=== PATIENT | male | born 1965 | race Caucasian/White ===

== ENCOUNTER 2016-09-29 18:27 | Observation (INO) | payer OTHER ==
--- NOTE | 2016-09-29 19:43 | EDPHY ---
H & P Time Seen by Provider: 09/29/16 19:33 HPI/ROS: CHIEF COMPLAINT: Infected toe HISTORY OF PRESENT ILLNESS: Patient has diabetes and initially had a wound on the toe month ago. It was apparently incised and debrided 2 weeks ago at clinic and he was sent here today because of a concern for osteomyelitis. He does not have pain in the toe but it has got a central eschar with surrounding redness. No lymphangitis and no fevers or chills. Minimal pain. A little bit of drainage. Notes from the clinic reflect that he failed to get better on oral Augmentin and then on oral Bactrim as an outpatient. He has been debrided twice is an outpatient. REVIEW OF SYSTEMS: Eye: no change in vision ENT: no sore throat Cardiac: no chest pain or syncope Pulmonary: no cough or SOB Abdomen: no vomiting, diarrhea, abdominal pain Musculoskeletal: no back pain Skin: HPI Neuro: no headache Constitutional: no fever : no urinary symptoms A comprehensive 10 point review of systems is otherwise negative aside from elements mentioned in the history of present illness. PAST MEDICAL HISTORY: Diabetes and hypertension Social history: Came here from [facility], nonsmoker 149/84 bp General Appearance: Alert and conversant, cooperative. Eyes: No scleral icterus. ENT, Mouth: Normal mucous membranes. Respiratory: Normal respiratory effort, breath sounds equal, lungs are clear to auscultation. Cardiovascular: Regular rate and rhythm. Gastrointestinal: Abdomen is soft and non tender. Neurological: Alert and oriented x3. Normally conversant. Face symmetric, normal movement and sensation in all extremities. Skin: Patient has erythema on the medial portion of the right great toe extends to the foot but not into the foot. There is a central 1 x 1/2 cm eschar. No crepitus. Musculoskeletal: No peripheral edema and no joint swelling. Psychiatric: Not agitated. Emergency Department course/MDM: Concern for diabetic foot infection. Consultation with general surgeon. Admit for IV antibiotics and MRI only if surgical evaluation feels there is a question about osteomyelitis. 2050: Erasto to take patient to OR w/o further imaging, hospitalist to consult. Zosyn 3.375 g IV. Smoking Status: Never smoked Constitutional: Initial Vital Signs Temperature (C) 36.7 C 09/29/16 18:34 Heart Rate 75 09/29/16 18:34 Respiratory Rate 16 09/29/16 18:34 O2 Sat (%) 95 09/29/16 18:34 O2 Delivery Mode Room Air Allergies/Adverse Reactions: No Known Allergies Allergy (Verified 05/08/13 18:46) Home Medications: Medication Instructions Recorded Aspirin EC [Aspirin EC 81 mg (*)] 81 mg PO DAILY 09/29/16 glipiZIDE [Glucotrol] 10 mg PO DAILY 09/29/16 Amox Tr/Potassium Clavulanate 2 each PO BID 09/30/16 [Augmentin 1000MG ER Tablet (*)] Hydrocodone/APAP 5/325 [[place] 1 - 2 tab PO Q4HRS PRN #10 tab 09/30/16 5/325 (*)] Lisinopril [Zestril 5 mg (*)] 5 mg PO DAILY 09/30/16 Metformin HCl [Metformin 1000 mg] 1,000 mg PO BID 09/30/16 Naproxen [Naprosyn] 500 mg PO BID 09/30/16 Medical Decision Making - Diagnostics Imaging: Left toe x-ray viewed independently by myself does not show osteomyelitis or gas in the soft tissues. Differential Diagnosis: Differential considered including but not limited to cellulitis, fasciitis, abscess, osteomyelitis. Consult/Admit Bed Type: [facility], [facility] 2050 - Data Points Laboratory Results: Laboratory Results 09/29/16 19:50 09/29/16 19:50 Medications Given: Discontinued Medications Piperacillin/Tazobactam/Dextrose (Zosyn 3.375 Gm (Premix)) 50 mls @ 100 mls/hr IV EDNOW ONE PRN Reason: Protocol Stop: 09/29/16 21:17 Last Admin: 09/29/16 21:13 Dose: 50 mls Vancomycin/Sodium Chloride (Vancomycin 1 Gm (Premix)) 250 mls @ 250 mls/hr IV Q24H MAXIMILIANO PRN Reason: Protocol Stop: 10/29/16 21:29 Last Admin: 09/30/16 00:15 Dose: Not Given Departure - Departure Disposition: To OP Cath/Surgery Clinical Impression: Diabetic foot infection Condition: Good
[2016-09-29 20:04] LABS: % IMMATURE GRANULYOCYTES 0.2 % (0.0-1.1); ABSOLUTE IMMATURE GRANULOCYTES 0.02 10^3/uL (0.00-0.10); ADD DIFF? NO; ADD MORPH? NO; ADD SCAN? NO; ATYPICAL LYMPHOCYTE FLAG 10 (0-99); FRAGMENT RBC FLAG 0 (0-99); HEMATOCRIT 43.5 % (40.0-51.0); HEMOGLOBIN 14.9 g/dL (13.7-17.5); LEFT SHIFT FLG 0 (0-99); LIPEMIA HEMOLYSIS FLAG 90 (0-99); MEAN CELL HEMOGLOBIN 29.4 pg (27.9-34.1); MEAN CELL HEMOGLOBIN CONCENTR. 34.3 g/dL (32.4-36.7); MEAN CELL VOLUME 85.8 fL (81.5-99.8); MEAN PLATELET VOLUME 9.2 fL (8.7-11.7); PLATELET CLUMPS FLAG 0 (0-99); PLATELET COUNT 349 10^3/uL (150-400); RED BLOOD CELL COUNT 5.07 10^6/uL (4.40-6.38); RED CELL DISTRIBUTION WIDTH 12.4 % (11.5-15.2)
[2016-09-29 20:20] LABS: ANION GAP 11 mEq/L (8-16); C-REACTIVE PROTEIN 12.9 mg/L (<10.0); CALCIUM 8.7 mg/dL (8.5-10.4); CARBON DIOXIDE 22 mEq/l (22-31); CHLORIDE 103 mEq/L (97-110); CREATININE 1.6 mg/dL (0.7-1.3); GLOMERULAR FILTRATION RATE 46; GLUCOSE 122 mg/dL (70-100); POTASSIUM 4.8 mEq/L (3.5-5.2); SODIUM 136 mEq/L (134-144)
[2016-09-29 20:27] LABS: SEDIMENTATION RATE 57 MM/HR (0-20)
[2016-09-29] MEDS ORDERED: PIPERACILLIN/TAZO 3.375 GM/DEX 50 ML IV ONE (20:48)
--- NOTE | 2016-09-29 21:17 | PDGENHP ---
History and Physical - Chief Complaint Acute worsening of toe wound - History of Present Illness PCP: [facility] Consulting provider: Dr. Halie Maurer Reason for consultation: Medical comanagement HPI: 50-year-old male presents with acute wound located on his left great toe, medial surface, associated with surrounding erythema and eschar formation, characterized as worsening with onset of symptoms approximately 2 weeks ago and duration persistent thereafter. Patient has attempted to treat the area with topical [id number] antibiotics without success. He reports a mild amount of associated pain and drainage. He denies ever experiencing similar wounds. He denies trauma to the foot and reports that the area began initially as a scratch. Denies any paresthesias. His only other complaint is bilateral knee pain which he takes ibuprofen 2 alleviated on a regular basis. His knee pain has resulted in a reduction in his physical activity but he denies any overt chest pain or shortness of breath with normal ambulation or ambulation of stairs. He reports that his oral intake of solids and liquids is good, he has had no recent reduction in his urine output. History Information - Allergies/Home Medication List Allergies/Adverse Reactions: No Known Allergies Allergy (Verified 05/08/13 18:46) Home Medications: Aspirin 09/29/16 [Last Taken Unknown] Glipizide 09/29/16 [Last Taken Unknown] I have personally reviewed and updated: family history, medical history, social history, surgical history - Past Medical History diabetes type 2 (On metformin), hypertension Additional medical history: Osteoarthritis bilateral knees - Surgical History Additional surgical history: Debridement of the affected area approximately 2 weeks - Family History Additional family history: No family history of venous thromboembolism or cardiovascular disease - Social History Smoking Status: Never smoked Alcohol Use: Occasionally (Last drink several weeks ago) Drug Use: None Additional social history: No recent reduction in exercise tolerance Review of Systems ROS: 10pt was reviewed & negative except for what was stated in HPI & below Muscolosketal: Reports: other (Pain and wound on left great toe) Skin: Reports: other (Redness and mild tenderness around the affected area) Physical Exam Temp Pulse Resp BP Pulse Ox 36.7 C 75 16 149/84 H 95 09/29/16 19:53 09/29/16 19:53 09/29/16 19:53 09/29/16 19:53 09/29/16 19:53 Constitutional: no apparent distress, appears nourished, not in pain Eyes: PERRL, anicteric sclera, EOMI Ears, Nose, Mouth, Throat: moist mucous membranes, hearing normal, ears appear normal, no oral mucosal ulcers Cardiovascular: regular rate and rhythym, no murmur, rub, or gallop, edema ( Trace bilateral lower extremity edema) Respiratory: no respiratory distress, no rales or rhonchi, clear to auscultation Gastrointestinal: normoactive bowel sounds, soft, non-tender abdomen, no palpable masses Skin: other (Nonblanching redness around central eschar on left medial great toe , mild blanchable erythema extending circumferentially from the area) Musculoskeletal: other (Full range of motion left ankle and left great toe without any effusions) Neurologic: AAOx3, sensation intact bilaterally, No weakness (Motor strength 5/ 5 bilaterally lower extremity) Psychiatric: interacting appropriately, not anxious, not encephalopathic, thought process linear Lab Data & Imaging Review 09/29/16 19:50 09/29/16 19:50 WBC 9.23 10^3/uL (3.80-9.50) 09/29/16 19:50 RBC 5.07 10^6/uL (4.40-6.38) 09/29/16 19:50 Hgb 14.9 g/dL (13.7-17.5) 09/29/16 19:50 Hct 43.5 % (40.0-51.0) 09/29/16 19:50 MCV 85.8 fL (81.5-99.8) 09/29/16 19:50 MCH 29.4 pg (27.9-34.1) 09/29/16 19:50 MCHC 34.3 g/dL (32.4-36.7) 09/29/16 19:50 RDW 12.4 % (11.5-15.2) 09/29/16 19:50 Plt Count 349 10^3/uL (150-400) 09/29/16 19:50 MPV 9.2 fL (8.7-11.7) 09/29/16 19:50 Neut % (Auto) 80.2 % (39.3-74.2) H 09/29/16 19:50 Lymph % (Auto) 13.3 % (15.0-45.0) L 09/29/16 19:50 Boyle % (Auto) 5.7 % (4.5-13.0) 09/29/16 19:50 Eos % (Auto) 0.2 % (0.6-7.6) L 09/29/16 19:50 Baso % (Auto) 0.4 % (0.3-1.7) 09/29/16 19:50 Nucleat RBC Rel Count 0.0 % (0.0-0.2) 09/29/16 19:50 Absolute Neuts (auto) 7.39 10^3/uL (1.70-6.50) H 09/29/16 19:50 Absolute Lymphs (auto) 1.23 10^3/uL (1.00-3.00) 09/29/16 19:50 Absolute Monos (auto) 0.53 10^3/uL (0.30-0.80) 09/29/16 19:50 Absolute Eos (auto) 0.02 10^3/uL (0.03-0.40) L 09/29/16 19:50 Absolute Basos (auto) 0.04 10^3/uL (0.02-0.10) 09/29/16 19:50 Absolute Nucleated RBC 0.00 10^3/uL (0-0.01) 09/29/16 19:50 Immature Gran % 0.2 % (0.0-1.1) 09/29/16 19:50 Immature Gran # 0.02 10^3/uL (0.00-0.10) 09/29/16 19:50 ESR 57 MM/HR (0-20) H 09/29/16 19:50 VBG Lactic Acid 2.0 mmol/L (0.7-2.1) 09/29/16 19:50 Sodium 136 mEq/L (134-144) 09/29/16 19:50 Potassium 4.8 mEq/L (3.5-5.2) 09/29/16 19:50 Chloride 103 mEq/L (97-110) 09/29/16 19:50 Carbon Dioxide 22 mEq/l (22-31) 09/29/16 19:50 Anion Gap 11 mEq/L (8-16) 09/29/16 19:50 BUN 25 mg/dL (7-23) H 09/29/16 19:50 Creatinine 1.6 mg/dL (0.7-1.3) H 09/29/16 19:50 Estimated GFR 46 09/29/16 19:50 Glucose 122 mg/dL (70-100) H 09/29/16 19:50 Calcium 8.7 mg/dL (8.5-10.4) 09/29/16 19:50 C-Reactive Protein 12.9 mg/L (<10.0) H 09/29/16 19:50 Visualized and Interpreted imaging results: Yes Interpretation: Evidence of early osteomyelitis in the distal phalanx of the left 5th digit Assessment & Plan Assessment: 50-year-old male presenting with wound and ulceration in the setting of diabetes mellitus type 2, suspected chronic kidney disease stage 3 Plan: 1. Foot wound in ulceration. Acute, new problem this provider, further workup indicated. x-ray demonstrating most likely osteomyelitis underneath that eschar on the medial 5th digit -discussed with Dr. Kevin Foster, he has consulted me specifically for medical co- management -ESR 57, CRP 12.9 -will most likely require surgical debridement versus amputation for osteomyelitis by Dr. Maurer -RCRI score of 0, conferring 0.5% perioperative cardiovascular risk, resulting in low cardiovascular risk for low risk orthopedic surgery -his metabolic equivalents are good albeit limited by his chronic osteoarthritic knee pain, with no recent reduction in exercise tolerance -would recommend an EKG to provide a baseline cardiac rhythm in the event that the patient has any hero- or postoperative chest pain which would require EKG in comparison to prior -no further cardiac risk stratification is indicated prior to undergoing surgery -he is not currently taking any anti-platelet medications or anticoagulants -he has taking all of his home medications this morning and there are no additional ones which should be given preoperatively -he has been NPO for approximately 6 hours -would recommend empiric IV vancomycin and Zosyn with culture of the removed material and wound bed 2. Hypertension. Chronic, continue home medication in a.m. once reconciled 3. Diabetes mellitus type 2. No significant hyperglycemia, his fasting blood glucose levels around 120 -can reinitiate home dosage of metformin in a.m. assessment the patient is tolerating a regular diabetic diet -no evidence of neuropathy on exam 4. Suspected chronic kidney disease stage 3. Serum creatinine level is 1.6 with a BUN of 25 and no significant electrolyte abnormalities -review of outside records from 05/08/2013 demonstrates serum creatinine level of 0.7, suggesting that patient's renal dysfunction has evolved from that time in the setting of hypertension and diabetes -the patient does not endorse any recent reduction in oral tolerance of solids or liquids and per history does not appear to be having oliguria -would recommend hydrating the patient for surgery and rechecking his serum creatinine level in a.m. -monitor [facility] service will follow up on this patient's care Dr. Maurer in the a.m., sooner if required.
--- NOTE | 2016-09-29 21:27 | GHP ---
DATE OF ADMISSION: 09/29/2016 CHIEF COMPLAINT: Diabetic foot ulcer. HISTORY OF PRESENT ILLNESS: The patient is a 50-year-old, man with a past medical history significant for diabetes who 1st noticed a wound to his left great toe. He presented to [facility] and has been debrided twice and honey has been applied. He has had Augmentin and Bactrim. He has had more fatigue. He denies fevers or chills. He has minimal pain. Due to the wound not healing, he was advised by his PCP to present to the ER. PAST MEDICAL HISTORY: Diabetes. PAST SURGICAL HISTORY: None. FAMILY HISTORY: Significant for alcoholism in a brother. Mother with hypertension and diabetes. SOCIAL HISTORY: He is not currently working but is eager to return to work. He does not use tobacco products. REVIEW OF SYSTEMS: A 10-point review of systems negative except per HPI. PHYSICAL EXAM: VITAL SIGNS: 36.7, 75, 149/84, 16, 95% room air. GENERAL: Pleasant, well-nourished, well-groomed man sitting up on gurney. HEENT: Normocephalic. No gross hearing deficits. Mucous membranes moist. Pupils equal and round. No scleral icterus. LUNGS: Clear to auscultation bilaterally. No increased work of breathing. CARDIAC: Regular rate. No peripheral edema. ABDOMEN: Deferred. MUSCULOSKELETAL: Moves all extremities well. SKIN: He has a 2 x 1 cm ulcer on his great toe. I am able to palpate bone. LABORATORY DATA: Results reviewed. I personally reviewed his x-ray, and there is a lucency along the medial aspect of the great toe worrisome for osteomyelitis. IMPRESSION AND PLAN: The patient is a 50-year-old man with osteomyelitis of his great toe evidenced by palpating bone, as well as the x-ray. I will take him to the operating room for amputation. Risks and benefits, including, but not limited to infection, bleeding, need for additional surgeries, and changes in his gait were discussed. He received antibiotics in the ER. /[id number]/MODL MTDD
[2016-09-29] MEDS ORDERED: BUPIVACAINE 0.5% 30 ML SDV ONE (21:29)
[2016-09-29] MEDS ORDERED: VANCOMYCIN HCL/NORMAL SALINE 250 ML IV SCH ×2 (21:30→23:30)
[2016-09-29] MEDS ORDERED: PROPOFOL/EMULSION 500 MG/50 ML BOTTLE IV ONE (21:32)
[2016-09-29] MEDS ORDERED: fentaNYL 100 MCG/2 ML INJ ONE (21:33)
[2016-09-29] MEDS ORDERED: REMIFENTANIL HCL 1 MG VIAL ONE (21:34)
[2016-09-29] MEDS ORDERED: MIDAZOLAM 2 MG/2 ML VIAL ONE (21:34)
[2016-09-29] MEDS ORDERED: LIDOCAINE 2% 100 MG/5 ML SYR IVP ONE (21:37)
[2016-09-29] MEDS ORDERED: ROCURONIUM 50 MG/5 ML VIAL ONE (21:37)
[2016-09-29] MEDS ORDERED: epHEDrine SULFATE 10 MG/ML SYR ONE (21:59)
[2016-09-29] MEDS ORDERED: NEOSTIGMINE METHYLSULFATE 5 MG/5 ML SYR ONE (22:04)
[2016-09-29] MEDS ORDERED: ACETAMINOPHEN 325 MG TAB PO PRN (22:27)
[2016-09-29] MEDS ORDERED: IBUPROFEN 600 MG TAB PO PRN (22:27)
[2016-09-29] MEDS ORDERED: HYDROCODONE/APAP 5/325 TAB PO PRN (22:27)
[2016-09-29] MEDS ORDERED: ONDANSETRON 4 MG/2 ML VIAL IVP PRN (22:28)
--- NOTE | 2016-09-29 23:53 | GOP ---
DATE OF OPERATION: 09/29/2016 SURGEON: Halie Maurer MD ANESTHESIA: Jesus Mccray MD/ PREOPERATIVE DIAGNOSIS: Osteomyelitis, left great toe. POSTOPERATIVE DIAGNOSIS: Osteomyelitis, left great toe. PROCEDURE PERFORMED: Amputation left great toe FINDINGS: Bone and soft tissue infection. SPECIMENS: Micro and pathology. ESTIMATED BLOOD LOSS: 5 cc. INDICATIONS: The patient is a 50-year-old with osteomyelitis. DESCRIPTION OF PROCEDURE: The patient was brought into the operating room, placed supine on the table, and general anesthesia was administered. His left foot was prepped with Betadine and draped in the usual sterile fashion. I infiltrated the area with 10 cc of 0.5% Marcaine. I made an incision around the ulcer, and I could easily probe to bone. I amputated the distal phalanx and submitted this to Pathology. I then used a rongeur and obtained a sample of the more proximal phalanx. I used a johanna rasp to soften the edges. I closed the deep layer with 3-0 Vicryl. I closed the skin with 2-0 nylon. Sterile dressing was applied. He was awakened in the operating room, extubated , and transferred to PACU in stable condition. /[id number]/MODL MTDD
[2016-09-30] MEDS ORDERED: hydrALAZINE 20 MG/ML VIAL IVP PRN (01:13)
[2016-09-30] MEDS: PIPERACILLIN/TAZO 3.375 GM/DEX 50 ML IV SCH ×3 (01:41→11:55)
[2016-09-30 05:31] LABS: % IMMATURE GRANULYOCYTES 0.3 % (0.0-1.1); ABSOLUTE IMMATURE GRANULOCYTES 0.02 10^3/uL (0.00-0.10); ADD DIFF? NO; ADD MORPH? NO; ADD SCAN? NO; ATYPICAL LYMPHOCYTE FLAG 0 (0-99); FRAGMENT RBC FLAG 0 (0-99); HEMATOCRIT 43.8 % (40.0-51.0); HEMOGLOBIN 13.7 g/dL (13.7-17.5); LEFT SHIFT FLG 0 (0-99); LIPEMIA HEMOLYSIS FLAG 80 (0-99); MEAN CELL HEMOGLOBIN 29.1 pg (27.9-34.1); MEAN CELL HEMOGLOBIN CONCENTR. 31.3 g/dL (32.4-36.7); MEAN PLATELET VOLUME 9.4 fL (8.7-11.7); PLATELET CLUMPS FLAG 90 (0-99); PLATELET COUNT 251 10^3/uL (150-400); RED BLOOD CELL COUNT 4.71 10^6/uL (4.40-6.38); RED CELL DISTRIBUTION WIDTH 12.3 % (11.5-15.2)
[2016-09-30 05:48] LABS: ANION GAP 6 mEq/L (8-16); CALCIUM 8.3 mg/dL (8.5-10.4); CARBON DIOXIDE 19 mEq/l (22-31); CHLORIDE 107 mEq/L (97-110); CREATININE 1.3 mg/dL (0.7-1.3); GLOMERULAR FILTRATION RATE 58; GLUCOSE 270 mg/dL (70-100); POTASSIUM 6.1 mEq/L (3.5-5.2); SODIUM 132 mEq/L (134-144)
[2016-09-30 08:25] LABS: POTASSIUM 5.1 mEq/L (3.5-5.2)
[2016-09-30] MEDS ORDERED: glipiZIDE 10 MG TAB PO SCH (09:00)
[2016-09-30] MEDS ORDERED: ASPIRIN 81 MG CHEWABLE TAB PO SCH (09:00)
--- NOTE | 2016-09-30 10:30 | HOSPPROG ---
Hospitalist Progress Note Assessment/Plan: Patient is a 50-year-old male presenting with wound and ulceration. He has diabetes mellitus type 2, suspected chronic kidney disease stage 3. Today is my first encounter with the patient/chart reviewed. *Diabetic foot ulcer/ osteomyelitis of left great toe * has a sed rate of 57 and a CRP of 12.9 * status post amputation of left great toe with Dr. Maurer * on vancomycin and Zosyn * physical therapy and occupational therapy to work with patient and gait stabilization * hyperkalemia * likely an air recheck a potassium was 5.1 * chronic kidneys disease stage III * will avoid any nephrotoxins medications * hypertension * blood pressure is 152/87 * diabetes mellitus type 2 * hyperglycemic likely secondary from surgery/stress * will add sliding scale for now *dispo: per surgical team/ will cont to follow along Subjective: Benoit said his pain is well managed. Objective: Vital Signs Temp Pulse Resp BP Pulse Ox 36.7 C 82 18 152/87 H 96 09/30/16 07:17 09/30/16 07:17 09/30/16 07:17 09/30/16 07:17 09/30/16 07:17 Laboratory Results 09/30/16 05:11 09/30/16 07:52 09/29/16 09/30/16 10/01/16 05:59 05:59 05:59 Intake Total 1263 Output Total 885 Balance 378 - Physical Exam Constitutional: no apparent distress, appears nourished, not in pain Eyes: PERRL Ears, Nose, Mouth, Throat: hearing normal Cardiovascular: regular rate and rhythym, tachycardia Respiratory: no respiratory distress Gastrointestinal: normoactive bowel sounds Skin: warm, other (left foot w dressing in place.) Neurologic: AAOx3 Psychiatric: interacting appropriately ICD10 Worksheet Patient Problems: Problems Problem Status Onset Diabetic foot infection Acute
[2016-09-30] MEDS ORDERED: D50W 25 GM/50 ML SYR IVP PRN (10:35)
--- NOTE | 2016-09-30 10:42 | SOAPPROG ---
SOAP Progress Note Assessment/Plan: Assessment: 50 yo M POD#1 s/p L great toe amp for osteomyelitis Pain controlled K elevated this am. Recheck Appreciate hospitalist management of comorbidities Dressing intact Dispo: d/c ok from surg perspective. Seen with Dr. mike. Follow-up early next week for dressing change S: pain controlled. No complaints this am O: laying in bed, comfortable, NAD No increased WOB LLE dressing intact, in post-op shoe. No surrounding erythema 09/30/16 11:04 09/30/16 11:17 Objective: Vital Signs Temp Pulse Resp BP Pulse Ox 36.7 C 82 18 152/87 H 96 09/30/16 07:17 09/30/16 07:17 09/30/16 07:17 09/30/16 07:17 09/30/16 07:17 Laboratory Results 09/30/16 05:11 09/30/16 07:52 09/29/16 09/30/16 10/01/16 05:59 05:59 05:59 Intake Total 1263 Output Total 885 Balance 378 ICD10 Worksheet Patient Problems: Problems Problem Status Onset Diabetic foot infection Acute
[2016-09-30 11:21] VITALS: BP 157/86; PULSE 88; RESP 16; TEMP 98.4; O2SAT 93
--- NOTE | 2016-09-30 11:21 | PDIAF ---
- Diagnosis Diagnosis: L great toe osteomyelitis Code Status: Full Code - Medication Management Discharge Medications: Medications to Continue on Transfer Aspirin EC [Aspirin EC 81 mg (*)] 81 mg PO DAILY 09/29/16 [Last Taken 09/29/16] glipiZIDE [Glucotrol] 10 mg PO DAILY 09/29/16 [Last Taken 09/29/16] Amox Tr/Potassium Clavulanate [Augmentin 1000MG ER Tablet (*)] 2 each PO BID [Last Taken 09/29/16 AM DOSE] Hydrocodone/APAP 5/325 [[place] 5/325 (*)] 1 - 2 tab PO Q4HRS PRN #10 tab [Last Taken Unknown] Lisinopril [Zestril 5 mg (*)] 5 mg PO DAILY 09/30/16 [Last Taken 09/29/16] Metformin HCl [Metformin 1000 mg] 1,000 mg PO BID 09/30/16 [Last Taken 09/29/16] Naproxen [Naprosyn] 500 mg PO BID 09/30/16 [Last Taken 09/29/16] Discharge Medications: Refer to the Discharge Home Medication list for PRN reason. - Orders Services needed: Physical Therapy, Occupational Therapy Diet Recommendation: no restrictions on diet Diet Texture: Regular Texture Diet Wound Care Instructions: keep dressing in place. Does not need to be changed until tuesday 10/03 at our office - Follow Up Care Current Providers and Referrals: Virginia Garcia [Primary Care Provider] - As per Instructions Halie Maurer MD [Medical Doctor] -
[2016-09-30] MEDS ORDERED: INSULIN LISPRO 100 UNIT/ML SC SCH (12:00)
[2016-09-30] MEDS ORDERED: NAPROXEN SODIUM 220 MG TAB PO SCH (21:00)
[2016-09-30] MEDS ORDERED: NON-FORMULARY NEW DRUG (Metformin Hcl [Metformin 1000 Mg] 1,000 MG) PO SCH (21:00)
[2016-09-30] MEDS ORDERED: metFORMIN HCL 500 MG TAB PO SCH (21:00)
[2016-09-30] MEDS ORDERED: NAPROXEN 500 MG PO SCH (21:00)
[2016-10-01] MEDS ORDERED: LISINOPRIL 5 MG TAB PO SCH (09:00)
== END 2016-09-30 16:22 | disposition home or self-care (01) ==
LOC: EDBD 18:27 → INTOOBSV 20:48 → F3E 23:09
PROVIDERS: ADMIT Surgery; ATTEND Surgery
PROC: 0Y6Q0Z3 Detachment at Left 1st Toe, Low, Open Approach (ICD-10-PCS; principal; 2016-09-29 21:30)
DX: E11.69 Type 2 diabetes mellitus with other specified complication (principal); M86.172 Other acute osteomyelitis, left ankle and foot; E11.621 Type 2 diabetes mellitus with foot ulcer; L97.529 Non-pressure chronic ulcer of other part of left foot with unspecified severity; I12.9 Hypertensive chronic kidney disease with stage 1 through stage 4 chronic kidney disease, or unspecified chronic kidney disease; N18.3 Chronic kidney disease, stage 3 (moderate); E87.5 Hyperkalemia
CPT/HCPCS: 96374; 97161-GP; 97165-GO; G0378; J0360; J1815; J2001; J2250; J2543; J2704; J2710; J3010; J3370

== ENCOUNTER 2016-11-09 07:00 | Inpatient (IN) | payer MEDICAID, OTHER ==
[2016-11-09] MEDS ORDERED: PIPERACILLIN/TAZO 4.5 GM/DEX 100 ML IV ONE (07:45)
[2016-11-09] MEDS ORDERED: VANCOMYCIN HCL/NORMAL SALINE 250 ML IV ONE (07:46)
--- NOTE | 2016-11-09 07:49 | EDPHY ---
H & P Stated Complaint: thinks he may have an infection in toes of L foot Time Seen by Provider: 11/09/16 07:38 HPI/ROS: CHIEF COMPLAINT: Foot infection HISTORY OF PRESENT ILLNESS: Patient is a 50-year-old male with poorly controlled diabetes and chronic kidney disease comes to the emergency department complaining of infected foot. He is followed by Dr. Halie Maurer in the wound clinic. He had amputation his left great toe in September of this year. He had osteomyelitis and was treated with vancomycin and Zosyn. He was following up with Dr. Dove office yesterday when she told him to come back to the emergency department because the infection was returning. He has not been febrile. He denies pain. REVIEW OF SYSTEMS: Constitutional: denies: chills, fever, recent illness, recent injury EENTM: denies: blurred vision, double vision, nose congestion Respiratory: denies: cough, shortness of breath Cardiac: denies: chest pain, irregular heart rate, lightheadedness, palpitations Gastrointestinal/Abdominal: denies: abdominal pain, diarrhea, nausea, vomiting, blood streaked stools Genitourinary: denies: dysuria, frequency, hematuria, pain Musculoskeletal: See HPI Skin: See HPI Neurological: denies: headache, numbness, paresthesia, tingling, dizziness, weakness Hematologic/Lymphatic: denies: blood clots, easy bleeding, easy bruising Immunologic/allergic: denies: HIV/AIDS, transplant EXAM: GENERAL: Well-appearing, well-nourished and in no acute distress. HEAD: Atraumatic, normocephalic. EYES: Pupils equal round and reactive to light, extraocular movements intact, sclera anicteric, conjunctiva are normal. ENT: TMs normal, nares patent, oropharynx clear without exudates. Moist mucous membranes. NECK: Normal range of motion, supple without lymphadenopathy or JVD. LUNGS: Breath sounds clear to auscultation bilaterally and equal. No wheezes rales or rhonchi. HEART: Regular rate and rhythm without murmurs, rubs or gallops. ABDOMEN: Soft, nontender, normoactive bowel sounds. No guarding, no rebound. No masses appreciated. BACK: No CVA tenderness, no spinal tenderness, step-offs or deformities EXTREMITIES: See skin exam, Normal range of motion, NEUROLOGICAL: Cranial nerves II through XII grossly intact. Normal speech, normal gait. 5/5 strength, normal movement in all extremities, normal sensation PSYCH: Normal mood, normal affect. SKIN: Toe amputation left great toe, wound with purulence and erythema surrounding. No tenderness. Source: Patient Exam Limitations: No limitations - Medical/Surgical History Hx Asthma: No Hx Chronic Respiratory Disease: No Hx Diabetes: Yes Hx Cardiac Disease: No Hx Renal Disease: No Hx Cirrhosis: No Hx Alcoholism: No Hx HIV/AIDS: No Hx Splenectomy or Spleen Trauma: No Other PMH: diabetic /htn/Lt foot ulcer/09/29/2016 osteomyelitis distal phalanx Lt great toe w/amputation/CKD stage 3 - Social History Smoking Status: Never smoked Alcohol Use: Sober Drug Use: None Constitutional: Initial Vital Signs Temperature (C) 36.7 C 11/09/16 07:04 Heart Rate 89 11/09/16 07:04 Respiratory Rate 16 11/09/16 07:04 Blood Pressure 186/101 H 11/09/16 07:04 O2 Sat (%) 93 11/09/16 07:04 O2 Delivery Mode Room Air Allergies/Adverse Reactions: No Known Allergies Allergy (Verified 11/09/16 07:06) Home Medications: Medication Instructions Recorded Aspirin EC [Aspirin EC 81 mg (*)] 81 mg PO DAILY 09/29/16 glipiZIDE [Glucotrol] 10 mg PO DAILY 09/29/16 Lisinopril [Zestril 5 mg (*)] 5 mg PO DAILY 09/30/16 Naproxen [Naprosyn] 500 mg PO BID 11/09/16 metFORMIN HCL [Glucophage 500 mg 1,000 mg PO BIDMEAL 11/09/16 (*)] Medical Decision Making - Diagnostics Imaging: Imaging Impressions Foot X-Ray 11/09/16 07:50 Impression: Interval amputation of the great toe at the level of the proximal phalanx, with no definite evidence of osteomyelitis. If symptoms persist and clinical suspicion warrants, consider MRI. ED Course/Re-evaluation: 8:20 a.m. I discussed the case with Dr. Halie Maurer who will admit the patient and agrees with plan thus far. Told him to come over from the wound care clinic yesterday. Differential Diagnosis: Partial list of the Differential diagnosis considered include but were not limited to; osteomyelitis, wound infection, sepsis, cellulitis and although unlikely based on the history and physical exam, I also considered endocarditis , pneumonia. Critical Care Time: Critical care time spent by me, Dr. Pereira exclusive with this patient was 35 minutes, exclusive of the PA time exclusive of procedures. The organ system that was at risk was musculoskeletal and I gave IV antibiotics and consultation to prevent worsening of the patient's condition - Data Points Laboratory Results: Laboratory Results 11/09/16 07:48 11/09/16 07:48 11/09/16 11/09/16 11/09/16 07:48 07:48 07:48 WBC RBC Hgb Hct 37.5 % L % (40.0-51.0) MCV MCH MCHC RDW Plt Count MPV Neut % (Auto) Lymph % (Auto) [place] % (Auto) Eos % (Auto) Baso % (Auto) Nucleat RBC Rel Count Absolute Neuts (auto) Absolute Lymphs (auto) Absolute Monos (auto) Absolute Eos (auto) Absolute Basos (auto) Absolute Nucleated RBC Immature Gran % Immature Gran # ESR 86 MM/HR H MM/HR (0-20) PT INR APTT VBG Lactic Acid Sodium 133 mEq/L L mEq/L (134-144) Potassium 4.4 mEq/L mEq/L (3.5-5.2) Chloride 103 mEq/L mEq/L (97-110) Carbon Dioxide 23 mEq/l mEq/l (22-31) Anion Gap 7 mEq/L L mEq/L (8-16) BUN 25 mg/dL H mg/dL (7-23) Creatinine 1.1 mg/dL mg/dL (0.7-1.3) Estimated GFR > 60 Glucose 289 mg/dL H mg/dL (70-100) Calcium 8.6 mg/dL mg/dL (8.5-10.4) Total Bilirubin 0.7 mg/dL mg/dL (0.1-1.4) C-Reactive Protein 25.2 mg/L H mg/L (<10.0) 11/09/16 11/09/16 11/09/16 07:48 07:48 07:48 WBC 8.27 10^3/uL 10^3/uL (3.80-9.50) RBC 4.55 10^6/uL 10^6/uL (4.40-6.38) Hgb 13.4 g/dL L g/dL (13.7-17.5) Hct 37.9 % L % (40.0-51.0) MCV 83.3 fL fL (81.5-99.8) MCH 29.5 pg pg (27.9-34.1) MCHC 35.4 g/dL g/dL (32.4-36.7) RDW 12.3 % % (11.5-15.2) Plt Count 312 10^3/uL 10^3/uL (150-400) MPV 9.4 fL fL (8.7-11.7) Neut % (Auto) 68.6 % % (39.3-74.2) Lymph % (Auto) 20.1 % % (15.0-45.0) [place] % (Auto) 7.9 % % (4.5-13.0) Eos % (Auto) 2.5 % % (0.6-7.6) Baso % (Auto) 0.5 % % (0.3-1.7) Nucleat RBC Rel Count 0.0 % % (0.0-0.2) Absolute Neuts (auto) 5.68 10^3/uL 10^3/uL (1.70-6.50) Absolute Lymphs (auto) 1.66 10^3/uL 10^3/uL (1.00-3.00) Absolute Monos (auto) 0.65 10^3/uL 10^3/uL (0.30-0.80) Absolute Eos (auto) 0.21 10^3/uL 10^3/uL (0.03-0.40) Absolute Basos (auto) 0.04 10^3/uL 10^3/uL (0.02-0.10) Absolute Nucleated RBC 0.00 10^3/uL 10^3/uL (0-0.01) Immature Gran % 0.4 % % (0.0-1.1) Immature Gran # 0.03 10^3/uL 10^3/uL (0.00-0.10) ESR PT 12.7 SEC SEC (12.0-15.0) INR 0.96 (0.83-1.16) APTT 31.7 SEC SEC (23.0-38.0) VBG Lactic Acid 0.8 mmol/L mmol/L (0.7-2.1) Sodium Potassium Chloride Carbon Dioxide Anion Gap BUN Creatinine Estimated GFR Glucose Calcium Total Bilirubin C-Reactive Protein Medications Given: Discontinued Medications Vancomycin/Sodium Chloride (Vancomycin 1 Gm (Premix)) 250 mls @ 250 mls/hr IV EDNOW ONE PRN Reason: Protocol Stop: 11/09/16 08:45 Last Admin: 11/09/16 08:06 Dose: 250 mls Piperacillin/Tazobactam/Dextrose (Zosyn (Premix)) 100 mls @ 200 mls/hr IV EDNOW ONE PRN Reason: Protocol Stop: 11/09/16 08:14 Last Admin: 11/09/16 09:31 Dose: 100 mls Departure - Departure Disposition: [facility] Acute Clinical Impression: Diabetic foot infection Condition: Fair
[2016-11-09 07:58] LABS: % IMMATURE GRANULYOCYTES 0.4 % (0.0-1.1); ABSOLUTE IMMATURE GRANULOCYTES 0.03 10^3/uL (0.00-0.10); ADD DIFF? NO; ADD MORPH? NO; ADD SCAN? NO; ATYPICAL LYMPHOCYTE FLAG 0 (0-99); FRAGMENT RBC FLAG 0 (0-99); HEMATOCRIT 37.9 % (40.0-51.0); HEMOGLOBIN 13.4 g/dL (13.7-17.5); LEFT SHIFT FLG 0 (0-99); LIPEMIA HEMOLYSIS FLAG 90 (0-99); MEAN CELL HEMOGLOBIN 29.5 pg (27.9-34.1); MEAN CELL HEMOGLOBIN CONCENTR. 35.4 g/dL (32.4-36.7); MEAN CELL VOLUME 83.3 fL (81.5-99.8); MEAN PLATELET VOLUME 9.4 fL (8.7-11.7); PLATELET CLUMPS FLAG 0 (0-99); PLATELET COUNT 312 10^3/uL (150-400); RED BLOOD CELL COUNT 4.55 10^6/uL (4.40-6.38); RED CELL DISTRIBUTION WIDTH 12.3 % (11.5-15.2)
[2016-11-09 08:06] LABS: INR 0.96 (0.83-1.16); PROTIME(PATIENT) 12.7 SEC (12.0-15.0)
[2016-11-09 08:07] LABS: APTT 31.7 SEC (23.0-38.0)
[2016-11-09 08:15] LABS: ANION GAP 7 mEq/L (8-16); BILIRUBIN,TOTAL 0.7 mg/dL (0.1-1.4); CALCIUM 8.6 mg/dL (8.5-10.4); CARBON DIOXIDE 23 mEq/l (22-31); CHLORIDE 103 mEq/L (97-110); CREATININE 1.1 mg/dL (0.7-1.3); GLOMERULAR FILTRATION RATE > 60; GLUCOSE 289 mg/dL (70-100); POTASSIUM 4.4 mEq/L (3.5-5.2); SODIUM 133 mEq/L (134-144)
[2016-11-09 08:19] LABS: HEMATOCRIT 37.5 % (40.0-51.0)
[2016-11-09] MEDS ORDERED: diphenhydrAMINE 25 MG CAP PO PRN (08:58)
[2016-11-09] MEDS ORDERED: ONDANSETRON DISINTEGRATING 4 MG TAB PO PRN (08:58)
--- NOTE | 2016-11-09 09:42 | GHP ---
[f rep st] HISTORY AND PHYSICAL DATE OF ADMISSION: 11/09/2016 ADMITTING DIAGNOSIS: Left lower extremity wounds with osteomyelitis. HISTORY OF PRESENT ILLNESS: The patient is a 50-year-old man who presented to the ER in September with left great toe osteomyelitis. He was taken to the operating room for left great toe amputation on 09/29/2016. Pathology was negative for osteo at the proximal margin. Microbiology showed Serratia and Enterococcus faecalis. His wound dehisced postoperatively and he was presenting to our office regularly for wound care. Yesterday however, during his routine followup, his foot was found to be more tender. He reported subjective fevers and the wound had a foul odor to it. We also found a new wound on the lateral aspect of his 4th toe which probed to bone. He was unaware of this wound. Today, he presented to the emergency room complaining of symptoms of recurrent infection. PAST MEDICAL HISTORY: Type 2 diabetes, chronic kidney disease. PAST SURGICAL HISTORY: Left great toe amputation. FAMILY HISTORY: Significant for alcoholism in brother. Mother with hypertension and diabetes. SOCIAL HISTORY: Nonsmoker. Denies recreational drug use. REVIEW OF SYSTEMS: A 10-point review of systems negative aside from HPI. PHYSICAL EXAMINATION: GENERAL: Well-developed, well-nourished man, in no acute distress. Appears sicker than yesterday. HEENT: Normocephalic, atraumatic. No hearing deficits. Pupils equal and round. No scleral icterus. Mucous membranes moist. NECK: Trachea midline. RESPIRATORY: Clear to auscultation bilaterally. No increased work of breathing. CARDIOVASCULAR: Regular rate and rhythm. 2+ peripheral edema left lower extremity. Unable to palpate PT or DP pulse but these were found with Doppler in the office. SKIN: The left lower extremity left great toe wound with a foul odor. There is slough in the base of the wound. Bone is palpable. There is additionally a wound on the lateral aspect of the 4th toe with slough and palpable bone in the base as well. There is mild surrounding erythema to the wound. No active drainage. IMPRESSION AND PLAN: The patient is a 50-year-old man with recurrent infection of his left great toe as well as a new wound on the lateral left 4th toe, suspicious for osteomyelitis. He will be taken the operating room for amputation of the left 4th toe as well as the left 1st toe and metatarsal. Risks include infection, bleeding, need for additional surgeries, change in balance and gait as well as delayed wound healing. He understands the risks and would like to proceed. He received antibiotics in the ER. He will be n.p.o. Consent signed in his chart. The patient additionally seen by Dr. Halie Maurer who agrees with the above impression and plan. /[id number]/MODL MTDD
[2016-11-09] MEDS ORDERED: DEXAMETHASONE 4 MG/ML VIAL ONE (13:47)
[2016-11-09] MEDS ORDERED: LIDOCAINE 2% 100 MG/5 ML SYR ONE (13:47)
[2016-11-09] MEDS ORDERED: ONDANSETRON 4 MG/2 ML VIAL ONE (13:47)
[2016-11-09] MEDS ORDERED: fentaNYL 100 MCG/2 ML INJ ONE ×2 (13:48→15:17)
[2016-11-09] MEDS ORDERED: PROPOFOL 200 MG/20 ML VIAL ONE (13:48)
[2016-11-09] MEDS ORDERED: MIDAZOLAM 2 MG/2 ML VIAL ONE (13:48)
[2016-11-09] MEDS ORDERED: BUPIVACAINE 0.5% 30 ML SDV ONE (14:22)
--- NOTE | 2016-11-09 15:07 | GCON ---
[f rep st] CONSULTATION INFECTIOUS DISEASES CONSULTATION DATE OF CONSULTATION: 11/09/2016 REFERRING PHYSICIAN: Halie Maurer MD REASON FOR CONSULTATION: Diabetic foot infection. HISTORY OF PRESENT ILLNESS: The patient is a 50-year-old male with a past medical history of diabetes mellitus who underwent left great toe amputation on 09/29/2016 for osteomyelitis of the great toe. Cultures obtained at the time of his presentation showed growth of Serratia marcescens and Enterococcus faecalis, which was an ampicillin susceptible isolate. Post amputation, he received treatment with Augmentin. Pathology specimen showed osteomyelitis with focus noted to be close to bone margin but bone margin was felt to be negative for osteomyelitis. Postoperatively, patient experienced wound dehiscence and has been followed regularly for ongoing wound care by Dr. Maurer. Yesterday, at the time of his followup, he had increased tenderness around his great toe incision and foot with foul smelling odor present. He describes having some erythema around the base of the toe as well. He also was noted to have a new wound on the lateral aspect of his 4th toe which probed to bone. The patient does not note any decrease in sensation in his toe. He checks his sugars irregularly and difficult to know if glycemic control has changed. Based on the above findings, he was admitted today with plans for amputation of the left 4th toe as well as amputation of the great toe at the metatarsal level. The patient has been given a single dose of vancomycin and Zosyn in the emergency department. He does not note any fever or chills. He has not experienced nausea, vomiting or diarrhea. Based on the above findings, I am now asked to assist in his ongoing management. PAST MEDICAL HISTORY: Diabetes mellitus, osteomyelitis as above. PAST SURGICAL HISTORY: Left great toe amputation. CURRENT MEDICATIONS: Vancomycin 1 g IV x1, Zosyn 3.375 g IV x1, [place] as needed for pain, Zofran as needed for nausea and vomiting; patient only typically takes metformin as well. ALLERGIES: No known drug allergies. SOCIAL HISTORY: Patient does not smoke. He does not drink alcohol currently. No drug use history. He is currently unemployed. FAMILY HISTORY: Mother with diabetes. REVIEW OF SYSTEMS: Outside that noted in the HPI, remainder of 10 system review is unremarkable. PHYSICAL EXAMINATION: VITAL SIGNS: Temperature 36.8, heart rate 81, respiratory rate 16, blood pressure 174/90. GENERAL: Patient is well-nourished , well-developed in no acute distress. He appears nontoxic. HEENT: There is no scleral icterus, conjunctival injection or conjunctival petechiae. Oropharynx is clear without lesions. Mucous membranes are moist. Dentition is in fair repair. There is no nasal discharge. No tenderness present over the sinuses. NECK: Supple without palpable lymphadenopathy or thyromegaly. CHEST : Clear to auscultation bilaterally without adventitious sounds. The respiratory effort is normal. CARDIOVASCULAR: Regular rate and rhythm without murmurs, gallops, rubs. ABDOMEN: Obese, nontender, nondistended. There is no palpable organomegaly. Bowel sounds are present. MUSCULOSKELETAL: The right great toe incision line shows central dehiscence with scant purulent discharge present; there is malodor present; there is slight necrosis along the incision margins; there is faint erythema along the remainder of the big toe and dorsal aspect of the foot with some peeling of skin; there is an ulcer present over the base of the left 4th toe laterally without surrounding erythema. SKIN: See musculoskeletal exam. There are no stigmata of endocarditis. Skin is warm and dry to touch. NEUROLOGIC: Patient is alert and interacts appropriately with the examiner. Cranial nerves 2-12 are grossly intact. Sensation is grossly intact. LYMPHATICS: There are no cervical or supraclavicular nodes. There is no inguinal lymphadenopathy palpable. LABORATORY DATA: White blood cell count 8.3, hematocrit 37.5, platelets 312, neutrophils 69%, lymphocytes 20%, ESR 86, serum creatinine 1.1, CRP 25.2, venous lactate is 0.8. Blood cultures x2 are pending; cultures from 09/29/2016 showed Serratia and Enterococcus faecalis. Plain film of the foot shows no definite evidence of osteomyelitis. IMPRESSION: Left diabetic foot infection with wound dehiscence of great toe and new ulceration on the 4th toe that probes to bone: Malodor concerning for polymicrobial process including anaerobes. Given recent healthcare contact, he is at risk for MRSA or Pseudomonas. Plans are in place for debridement and further amputation today with additional culture information to be obtained. RECOMMENDATIONS: 1. Vancomycin 1 g IV q.12 hours. 2. Zosyn 3.375 g q.6 hours. 3. Follow renal function carefully with above antibiotic therapy (creatinine was elevated at time of last admission but has subsequently improved). 4. Await operative findings for further decision making regarding duration of antibiotic therapy. Thank you for this consultation. We will continue to follow the patient with you. /[id number]/MODL MTDD
--- NOTE | 2016-11-09 15:10 | POSTOPPROG ---
Post Op Note Date of Operation: 11/09/16 Surgeon: Halie Maurer Anesthesiologist: imelda Anesthesia: GET(General Endotracheal) Pre-op Diagnosis: osteomylitis Post-op Diagnosis: same Indication: 50 yo with dfu and osteo Procedure: amputate great toe and met head. amputate 4th toe Findings: poor blood supply Inf/Abcess present in the surg proc area at time of surgery?: Yes Depth: Deep Incisional (Fascial) EBL: Minimal
[2016-11-09] MEDS ORDERED: HYDROmorphONE/DILAUDID 1 MG/ML SYR ONE (15:17)
--- NOTE | 2016-11-09 15:58 | GOP ---
[f rep st] OPERATIVE REPORT DATE OF OPERATION: 11/09/2016 SURGEON: Halie Maurer MD ANESTHESIA: General. ANESTHESIOLOGIST: Dr. Shankar Ty PREOPERATIVE DIAGNOSIS: Osteomyelitis and chronic wound due to diabetic foot ulcer of the left grea t toe and 4th toe. POSTOPERATIVE DIAGNOSIS: Osteomyelitis and chronic wound due to diabetic foot ulcer of the left gre at toe and 4th toe. PROCEDURE PERFORMED: Amputation, left great toe and metatarsal head and 4th toe and metatarsal head . FINDINGS: Sluggish blood supply. SPECIMENS: Pathology: Ink urena proximal metatarsal head. ESTIMATED BLOOD LOSS: 5 cc INDICATIONS: The patient is a 50-year-old diabetic man who presented previously to the [facility] a diabetic foot infection. I took him to the operating room and amputated the distal portion of h is left great toe. He was doing well, but the wound dehisced. He has progressively been feeling wo rse with fevers and chills. He presented to the emergency room due to his systemic symptoms. In ad dition, his foot has had a stronger, foul-smelling odor, and there is bone palpable at the wound. DESCRIPTION OF PROCEDURE: The patient was brought into the operating room, placed supine on the tab le, and general anesthesia was administered. His left foot was prepped and draped in the usual ster ile fashion. I made an incision along the medial aspect of his foot, and I used a periosteal elevat or to elevate the soft tissues away from the bone. I transected at the distal portion of the metata rsal head, inked this, and submitted it to Pathology. In a similar fashion, I made an ellipse aroun d the wound on the 4th toe and extended this dorsally and used a periosteal elevator to elevate the tissues away from the bone. I amputated this at the metatarsal head. It was inked. Each wound hem ostasis was achieved. There was more vigorous bleeding on the great toe than there was in the 4th t oe. The deep layer was closed with 2-0 Vicryl. Skin closed with 2-0 nylon and 3-0 nylon. He was a wakened in the operating room, extubated, transferred to PACU in stable condition. /[id number]/MODL
[2016-11-09] MEDS: HYDROCODONE/APAP 5/325 TAB PO PRN ×2 (16:18→23:38)
[2016-11-09] MEDS: PIPERACILLIN/TAZO 3.375 GM/DEX 50 ML IV SCH ×2 (16:25→20:47)
[2016-11-09] MEDS ORDERED: hydrALAZINE 10 MG TAB PO PRN (17:39)
--- NOTE | 2016-11-09 18:28 | GCON ---
[f rep st] CONSULTATION DATE OF CONSULTATION: 11/09/2016 REFERRING PHYSICIAN: Halie Maurer MD REASON FOR CONSULTATION: Management of diabetes and hypertension. HISTORY OF PRESENT ILLNESS: The patient is a 50-year-old, Kazakh-speaking, male with past medical history of hypertension, diabetes, who underwent left great toe amputation 09/29/2016 for osteomyelitis. Cultures at that time showed Serratia and enterococcus which was susceptible to ampicillin. Post amputation he received Augmentin. Path showed osteo with focus noted to be close to bone margin but it was still felt to be negative for osteomyelitis. Postoperatively, he experienced wound dehiscence and has been following regularly with Dr. Jimenez. Yesterday he was noted to have increased tenderness around the great toe incision with a foul-smelling odor. He has had some erythema at the base of the toe. He also has a new wound on the lateral aspect of the 4th toe which probed to the bone. The patient was admitted today and underwent elective left great toe and left toe as well as metatarsal head amputation without complication. The patient reports having headache last night. No chest pain. Ran out of his blood pressure medications 3 days ago. REVIEW OF SYSTEMS: I completed a 10-point review of systems, negative except as noted in HPI. PAST MEDICAL HISTORY: Diabetes, osteomyelitis, chronic diabetic ulcer, hypertension. PAST SURGICAL HISTORY: Left great toe amputation September 2016. HOME MEDICATIONS: 1. Metformin 1000 mg b.i.d. 2. Glipizide 10 mg daily. 3. Naproxen 500 mg b.i.d. 4. Zestril 5 mg daily. 5. Aspirin 81 daily. FAMILY HISTORY: Mother with hypertension and diabetes. No CAD. SOCIAL HISTORY: Lives in [place] with his friends. No alcohol, tobacco or illicits. ALLERGIES: No known drug allergies. PHYSICAL EXAMINATION: VITAL SIGNS: Temperature 37, blood pressure 171/93, heart rate 70s, respiration 18, 95% on 2 L. GENERAL: Patient lying in bed, no acute distress. HEENT: PERRLA, EOMI. Oropharynx clear. CV is regular rate and rhythm. No murmurs, gallops, or rubs. An occasional extra beat. LUNGS: Clear to auscultation. No crackles or wheezing. ABDOMEN: Soft, nontender, nondistended. Positive bowel sounds. : No suprapubic tenderness. MUSCULOSKELETAL: Left foot incision site is dressed with a Kerlix, no drainage. NEURO: 2 through 12 intact. PSYCHIATRIC: Alert and oriented x3. LABS: Sodium 133, potassium 4.4, chloride 103, carbon dioxide 23, BUN 25, creatinine 1.1, glucose 289. CRP is 25, lactate 0.8. Coags within normal. WBC 8.2, hemoglobin 13, hematocrit 37, platelets 312. ESR 86. Foot x-ray 11/09/2016: Interval amputation of great toe at the level of the proximal phalanx with no evidence of osteomyelitis. ASSESSMENT AND PLAN: 1. Left great toe and 4th toe osteomyelitis: The patient underwent amputation by Dr. Jimenez today. Infectious Disease is following along. 2. Accelerated hypertension: asymptomatic now with no GOMEZ, CP or SOB. Ran out of meds 3 days ago. Will resume, but increase to 10mg since so uncontrolled. Add p.r.n. hydralazine overnight. 3. Uncontrolled diabetes. Sugars greater than 200 here. He is on glipizide and metformin at home. We will add a sliding scale insulin here for better wound healing. 4. Diet: Diabetic. 5. DVT prophylaxis: SCDs. DISPOSITION: Thank you for this consultation. Will follow along. Please call with questions. /[id number]/MODL MTDD
[2016-11-09] MEDS: VANCOMYCIN HCL/NORMAL SALINE 250 ML IV SCH (18:30)
[2016-11-09] MEDS: metFORMIN HCL 500 MG TAB PO SCH (18:36)
[2016-11-09] MEDS: NAPROXEN SODIUM 220 MG TAB PO SCH (20:48)
[2016-11-09] MEDS: hydrALAZINE 25 MG TAB PO SCH (23:38)
[2016-11-10] MEDS: PIPERACILLIN/TAZO 3.375 GM/DEX 50 ML IV SCH ×5 (00:09→23:46)
[2016-11-10] MEDS: HYDROCODONE/APAP 5/325 TAB PO PRN ×3 (05:07→21:02)
[2016-11-10] MEDS: VANCOMYCIN HCL/NORMAL SALINE 250 ML IV SCH (05:35)
[2016-11-10 05:45] LABS: % IMMATURE GRANULYOCYTES 0.4 % (0.0-1.1); ABSOLUTE IMMATURE GRANULOCYTES 0.04 10^3/uL (0.00-0.10); ADD DIFF? NO; ADD MORPH? NO; ADD SCAN? NO; ATYPICAL LYMPHOCYTE FLAG 0 (0-99); FRAGMENT RBC FLAG 0 (0-99); HEMATOCRIT 33.9 % (40.0-51.0); HEMOGLOBIN 11.7 g/dL (13.7-17.5); LEFT SHIFT FLG 0 (0-99); LIPEMIA HEMOLYSIS FLAG 90 (0-99); MEAN CELL HEMOGLOBIN CONCENTR. 34.5 g/dL (32.4-36.7); MEAN CELL VOLUME 84.1 fL (81.5-99.8); MEAN PLATELET VOLUME 9.8 fL (8.7-11.7); PLATELET CLUMPS FLAG 0 (0-99); PLATELET COUNT 298 10^3/uL (150-400); RED BLOOD CELL COUNT 4.03 10^6/uL (4.40-6.38); RED CELL DISTRIBUTION WIDTH 12.2 % (11.5-15.2)
[2016-11-10 06:04] LABS: ALANINE AMINOTRANSFERASE 25 IU/L (21-72); ALBUMIN 2.4 g/dL (3.5-5.0); ALKALINE PHOSPHATASE 136 IU/L (38-126); ANION GAP 8 mEq/L (8-16); ASPARTATE AMINOTRANSFERASE 12 IU/L (17-59); BILIRUBIN,TOTAL 0.6 mg/dL (0.1-1.4); CALCIUM 8.3 mg/dL (8.5-10.4); CARBON DIOXIDE 21 mEq/l (22-31); CHLORIDE 104 mEq/L (97-110); CREATININE 1.4 mg/dL (0.7-1.3); GLOMERULAR FILTRATION RATE 53; GLUCOSE 281 mg/dL (70-100); POTASSIUM 4.4 mEq/L (3.5-5.2); SODIUM 133 mEq/L (134-144); TOTAL PROTEIN 5.6 g/dL (6.3-8.2)
[2016-11-10] MEDS ORDERED: glipiZIDE 10 MG TAB PO SCH (09:00)
[2016-11-10] MEDS ORDERED: LISINOPRIL 5 MG TAB PO SCH (09:00)
[2016-11-10] MEDS: NAPROXEN SODIUM 220 MG TAB PO SCH (09:10)
[2016-11-10] MEDS: LISINOPRIL 10 MG TAB PO SCH (09:11)
[2016-11-10] MEDS: ASPIRIN EC 81 MG TAB PO SCH (09:11)
[2016-11-10] MEDS: metFORMIN HCL 500 MG TAB PO SCH (09:11)
[2016-11-10] MEDS: hydrALAZINE 25 MG TAB PO SCH ×3 (09:11→23:47)
[2016-11-10] MEDS ORDERED: D50W 25 GM/50 ML SYR IVP PRN (09:56)
[2016-11-10] MEDS: INSULIN LISPRO 100 UNIT/ML SC SCH ×2 (10:48→17:21)
--- NOTE | 2016-11-10 11:24 | PCMIDPN ---
Assessment/Plan: #L diabetic foot infection/OM s/p amp L great toe and 4th toe : surgical dressing in place. Unfortunately, no new cultures. 09/29/16 cultures serratia and enterococcus. Majority of infected tissue likely amputated. --dc vancomycin, some risk of MRSA but no active cellulitis noted. Monitor clinically --continue standard dose Zosyn based on past cultures --duration of antibiotic therapy likely based on path #ARF, Cr 1.4, dc vancomycin today as above. No change in dosing to zosyn at this point. meds zosyn 3.375mg IV q6h #1 Vancomycin IV #1 microbiology 11/09 blood cx (2) NGTD Subjective: no c/o pain L foot with significantly improved control today Objective: Vital Signs Temp Pulse Resp BP Pulse Ox 37.0 C 75 16 154/83 H 96 11/10/16 08:00 11/10/16 08:00 11/10/16 08:00 11/10/16 08:00 11/10/16 08:00 Laboratory Results 11/10/16 04:58 11/10/16 04:58 11/09/16 11/10/16 11/11/16 05:59 05:59 05:59 Intake Total 2000 Output Total 700 Balance 1300 ESR 86 MM/HR (0-20) H 11/09/16 07:48 C-Reactive Protein 25.2 mg/L (<10.0) H 11/09/16 07:48 - Physical Exam General Appearance: alert, no apparent distress Respiratory: lungs clear Neck: supple Cardiac/Chest: regular rate, rhythm Extremities: other (Dressing in place L foot, no cellulitis outside of dressing) Abdomen: normal bowel sounds, non-tender, soft Male Genitalia: No [place] Skin: normal color, warm/dry, No rash Neuro/Psych: alert, normal mood/affect, oriented x 3 ICD10 Worksheet Patient Problems: Problems Problem Status Onset Diabetic foot infection Acute
[2016-11-10] MEDS ORDERED: INSULIN LISPRO 100 UNIT/ML SC SCH (12:00)
--- NOTE | 2016-11-10 12:42 | SOAPPROG ---
SOAP Progress Note Assessment/Plan: Assessment: 50yo male s/p toe amputation pain controlled, feel foggy overall Pe comfortable alert no signs of distress Bandage dry Plan: ART studies seen by Dr Cristina will take down dressing Monday to evaluate wound. 11/10/16 12:41 Objective: Vital Signs Temp Pulse Resp BP Pulse Ox 36.9 C 72 18 139/75 H 94 11/10/16 11:45 11/10/16 11:45 11/10/16 11:45 11/10/16 11:45 11/10/16 11:45 Laboratory Results 11/10/16 04:58 11/10/16 04:58 11/09/16 11/10/16 11/11/16 05:59 05:59 05:59 Intake Total 2000 800 Output Total 700 500 Balance 1300 300 PT 12.7 SEC (12.0-15.0) 11/09/16 07:48 INR 0.96 (0.83-1.16) 11/09/16 07:48 ICD10 Worksheet Patient Problems: Problems Problem Status Onset Diabetic foot infection Acute
[2016-11-10] MEDS ORDERED: IOPAMIDOL (ISOVUE 370) 100 ML BTL IV ONE (13:16)
--- NOTE | 2016-11-10 15:48 | HOSPPROG ---
Hospitalist Progress Note Assessment/Plan: 50-year-old Khmer-speaking male new to my care today presenting with left diabetic foot infection/osteomyelitis status post amputation of left great toe and 4th toe # uncontrolled diabetes mellitus - check hemoglobin A1c -will hold sulfonylurea and metformin on the hospital. He did receive a contrast study today. -continue correctional insulin as ordered and consider starting glargine tomorrow # acute kidney injury -will discontinue NSAIDs -continue lisinopril for now -monitor renal function daily - obtain urinalysis evaluate for active sediment # left great toe and 4th toe osteomyelitis -continue wound care and antibiotics per ID patient is high risk Subjective: Pain controlled. tells me he feels dizzy, denies chest pain, shortness of breath. denies fevers or chills Objective: Vital Signs Temp Pulse Resp BP Pulse Ox 36.9 C 72 18 139/75 H 94 11/10/16 11:45 11/10/16 11:45 11/10/16 11:45 11/10/16 11:45 11/10/16 11:45 PT 12.7 SEC (12.0-15.0) 11/09/16 07:48 INR 0.96 (0.83-1.16) 11/09/16 07:48 Laboratory Tests 11/09/16 11/10/16 11/10/16 15:44 04:58 08:07 Glucose 281 H POC Glucose 199 H 249 H 11/10/16 11/10/16 11/10/16 10:13 12:19 15:14 Glucose POC Glucose 300 H 186 H 134 H - Physical Exam Eyes: PERRL, anicteric sclera, EOMI Ears, Nose, Mouth, Throat: moist mucous membranes, hearing normal, ears appear normal, no oral mucosal ulcers Cardiovascular: regular rate and rhythym, no murmur, rub, or gallop Respiratory: no respiratory distress, no rales or rhonchi, clear to auscultation Gastrointestinal: normoactive bowel sounds, soft, non-tender abdomen, no palpable masses ICD10 Worksheet Patient Problems: Problems Problem Status Onset Diabetic foot infection Acute
[2016-11-10 17:14] LABS: HEMOGLOBIN A1C 9.6 % (4.0-6.0)
[2016-11-10 18:24] LABS: COLOR YELLOW; LEUKOCYTE ESTERASE,URINE NEGATIVE (NEGATIVE); NITRITE,URINE NEGATIVE (NEGATIVE)
[2016-11-11 05:26] LABS: ANION GAP 6 mEq/L (8-16); CALCIUM 7.9 mg/dL (8.5-10.4); CARBON DIOXIDE 24 mEq/l (22-31); CHLORIDE 104 mEq/L (97-110); CREATININE 2.2 mg/dL (0.7-1.3); GLOMERULAR FILTRATION RATE 32; GLUCOSE 145 mg/dL (70-100); POTASSIUM 4.4 mEq/L (3.5-5.2); SODIUM 134 mEq/L (134-144)
[2016-11-11] MEDS: PIPERACILLIN/TAZO 3.375 GM/DEX 50 ML IV SCH (05:27)
[2016-11-11] MEDS: ONDANSETRON 4 MG/2 ML VIAL IVP PRN (06:01)
[2016-11-11] MEDS: HYDROCODONE/APAP 5/325 TAB PO PRN ×2 (07:51→15:44)
[2016-11-11] MEDS: LISINOPRIL 10 MG TAB PO SCH (07:51)
[2016-11-11] MEDS: ASPIRIN EC 81 MG TAB PO SCH (07:51)
[2016-11-11] MEDS: hydrALAZINE 25 MG TAB PO SCH ×3 (07:52→22:39)
--- NOTE | 2016-11-11 09:33 | PCMIDPN ---
Assessment/Plan: 1. Left diabetic foot infection/osteomyelitis status post amputation left great toe and 4th toe postop day 2: In the setting of acute renal failure, will adjust Zosyn dose accordingly. Will also obtain urine eosinophils as outlined in 2. Hopefully will not require antibiotics for much longer. Pathology from the operative specimen is pending. Hopefully I can see his foot at some point this weekend, if not today. 2. Acute renal failure: Adjust Zosyn dose. Renal ultrasound ordered. Urine eosinophils ordered. Repeat CBC today to look for evidence of peripheral eosinophilia. No obvious rash at this point in time to suggest AIN. Subjective: Patient states he is a little lightheaded from the narcotics, and prefers not to take narcotics at all any longer secondary to nausea and lightheadedness. Denies diarrhea. Explained to the patient now that his creatinine is elevated, and that I have ordered a renal ultrasound. He would like to wait and have his foot unwrap when surgeries able to do it later today. He has no other complaints. Objective: Zosyn 3.375 g IV q.6 hours day 2. T-max 37.2degrees Vital Signs Temp Pulse Resp BP Pulse Ox 37.2 C 75 16 147/86 H 92 11/11/16 07:30 11/11/16 07:30 11/11/16 07:30 11/11/16 07:30 11/11/16 07:30 Laboratory Results 11/11/16 04:27 11/10/16 11/11/16 11/12/16 05:59 05:59 05:59 Intake Total 1300 Output Total 850 Balance 450 ESR 86 MM/HR (0-20) H 11/09/16 07:48 C-Reactive Protein 25.2 mg/L (<10.0) H 11/09/16 07:48 No new microbiology. As outlined by my colleagues, previous cultures have grown Serratia and enterococcus faecalis. - Physical Exam General Appearance: alert, no apparent distress EENT: pharynx normal Respiratory: lungs clear Extremities: other (Left foot wrapped; I did not unwrap at patient request. No obvious cellulitis of the ankle area or pretibial area. ) Skin: No rash ICD10 Worksheet Patient Problems: Problems Problem Status Onset Diabetic foot infection Acute
[2016-11-11 09:58] LABS: % IMMATURE GRANULYOCYTES 0.4 % (0.0-1.1); ABSOLUTE IMMATURE GRANULOCYTES 0.05 10^3/uL (0.00-0.10); ADD DIFF? NO; ADD MORPH? NO; ADD SCAN? NO; ATYPICAL LYMPHOCYTE FLAG 0 (0-99); FRAGMENT RBC FLAG 0 (0-99); HEMATOCRIT 35.8 % (40.0-51.0); HEMOGLOBIN 12.2 g/dL (13.7-17.5); LEFT SHIFT FLG 0 (0-99); LIPEMIA HEMOLYSIS FLAG 90 (0-99); MEAN CELL HEMOGLOBIN 28.8 pg (27.9-34.1); MEAN CELL HEMOGLOBIN CONCENTR. 34.1 g/dL (32.4-36.7); MEAN CELL VOLUME 84.6 fL (81.5-99.8); MEAN PLATELET VOLUME 9.6 fL (8.7-11.7); PLATELET CLUMPS FLAG 0 (0-99); PLATELET COUNT 293 10^3/uL (150-400); RED BLOOD CELL COUNT 4.23 10^6/uL (4.40-6.38); RED CELL DISTRIBUTION WIDTH 12.7 % (11.5-15.2)
[2016-11-11] MEDS: INSULIN LISPRO 100 UNIT/ML SC SCH ×3 (11:58→17:56)
--- NOTE | 2016-11-11 12:49 | SOAPPROG ---
SOAP Progress Note Assessment/Plan: Assessment: 50yo male s/p toe amputation pain controlled, feel foggy overall Pe comfortable alert no signs of distress Left foot wound examined some maceration around both wounds, no surrounding erythema Plan: ART studies will be reviewed this weekend by Dr Cristina continue wound care 11/10/16 12:41 11/11/16 12:47 Objective: Vital Signs Temp Pulse Resp BP Pulse Ox 36.7 C 75 16 138/71 H 96 11/11/16 11:11 11/11/16 11:11 11/11/16 11:11 11/11/16 11:11 11/11/16 11:11 Laboratory Results 11/11/16 09:51 11/11/16 04:27 11/10/16 11/11/16 11/12/16 05:59 05:59 05:59 Intake Total 1300 Output Total 850 Balance 450 PT 12.7 SEC (12.0-15.0) 11/09/16 07:48 INR 0.96 (0.83-1.16) 11/09/16 07:48 ICD10 Worksheet Patient Problems: Problems Problem Status Onset Diabetic foot infection Acute
[2016-11-11] MEDS: PIPERACILLIN/TAZO 2.25 GM/DEX 50 ML IV SCH ×2 (14:47→20:15)
--- NOTE | 2016-11-11 15:23 | WOCRNPDOC ---
NANDINI Advanced Assessment Note - Skin Integrity Problem, Advanced Assess Left First Toe Dressing Type: Gauze, Kerlix, Xeroform (strip) Dressing Description: Clean/Dry, Intact Exudate Amount: Scant Exudate Color: Reddish/Yellow Exudate Characteristic(s): Serosanguinous Integumentary Issue Intervention: Dressing Changed (Aquacel Ag, Transfer foam, gauze, kerlix), Dressing Initialed & Dated Nelsy Wound Tissue: Ecchymotic, Erythema, Swollen, Painful/Tender Nelsy Wound Swelling: Moderate Site Odor: Slight, Musky Skin Integrity Problem Comment: Sutured surgical amputation site, with intact sutures, moist wound margins approximated however trending towards maceration under xeroform gauze. Visualized with Dr. Mayo (ID) Patient reports tenderness along anterior and distal foot. Medication provided for dressing change. Cleansed incision sites using sterile NS flush and gauze. Applied skin prep to perimeters. Placed Aquacel Ag and Transfer foam over incisions. Protected distal toes with 4x4 dry gauze; secured all with kerlix. Rechecked for drainage and dressing condition after 5 hours: All components clean, dry, intact, and wound margin tissue firmer. Demo and report to JOSE Cardoza. Left Fourth Toe Dressing Type: Gauze, Kerlix, Xeroform Integumentary Issue Intervention: Dressing Changed (Aquacel Ag, Transfer foam, gauze, kerlix), Dressing Initialed & Dated Nelsy Wound Tissue: Ecchymotic, Erythema, Painful/Tender Nelsy Wound Swelling: Mild Wound Edges: Not Attached Site Odor: Slight, Musky Skin Integrity Problem Comment: Sutured surgical amputation site, with intact sutures, moist wound margins approximated however trending towards maceration under xeroform gauze. Visualized with Dr. Mayo (ID) Patient reports tenderness along anterior and distal foot. Medication provided for dressing change. Cleansed incision sites using sterile NS flush and gauze. Applied skin prep to perimeters. Placed Aquacel Ag and Transfer foam over incisions. Protected distal toes with 4x4 dry gauze; secured all with kerlix. Rechecked for drainage and dressing condition after 5 hours: All components clean, dry, intact, and wound margin tissue firmer. Demo and report to JOSE Cardoza.
--- NOTE | 2016-11-11 16:23 | HOSPPROG ---
Hospitalist Progress Note Assessment/Plan: 50-year-old Ukrainian-speaking male new to my care today presenting with left diabetic foot infection/osteomyelitis status post amputation of left great toe and 4th toe # uncontrolled diabetes mellitus A1c 9.8 -will hold sulfonylurea and metformin -start glargine 10 units sq and continue correctional insulin as ordered # acute kidney injury (worsening) -continue to hold NSAIDs -DC lisinopril -monitor renal function daily -await urine eos # left great toe and 4th toe osteomyelitis -continue wound care and antibiotics per ID -agree with renal dosing of zosyn patient is high risk Subjective: no dizziness. no fever or chills. reports normal urine output Objective: Vital Signs Temp Pulse Resp BP Pulse Ox 36.6 C 82 16 135/76 H 94 11/11/16 15:13 11/11/16 15:13 11/11/16 15:13 11/11/16 15:13 11/11/16 15:13 Laboratory Results 11/11/16 09:51 11/11/16 04:27 11/10/16 11/11/16 11/12/16 05:59 05:59 05:59 Intake Total 1300 500 Output Total 850 600 Balance 450 -100 PT 12.7 SEC (12.0-15.0) 11/09/16 07:48 INR 0.96 (0.83-1.16) 11/09/16 07:48 renal u/s reviewed no hydro - Physical Exam Constitutional: no apparent distress, appears nourished, not in pain Ears, Nose, Mouth, Throat: moist mucous membranes, hearing normal, ears appear normal, no oral mucosal ulcers Cardiovascular: regular rate and rhythym, no murmur, rub, or gallop Respiratory: no respiratory distress, no rales or rhonchi, clear to auscultation Gastrointestinal: normoactive bowel sounds, soft, non-tender abdomen, no palpable masses, No guarding, No rebound ICD10 Worksheet Patient Problems: Problems Problem Status Onset Diabetic foot infection Acute
[2016-11-11] MEDS: oxyCODONE IR 5 MG TAB PO PRN (20:14)
[2016-11-11] MEDS ORDERED: INSULIN GLARGINE 100 UNITS/ML SYRINGE SC SCH (21:00)
[2016-11-12] MEDS: PIPERACILLIN/TAZO 2.25 GM/DEX 50 ML IV SCH ×4 (02:30→20:39)
[2016-11-12 04:47] LABS: EOSMR EOSINOPHILS NO EOS SEEN (NO EOS SEEN)
[2016-11-12 04:49] LABS: EOSMR PMNS FEW PMN CELLS; EOSMR RBCS FEW RBCS
[2016-11-12 04:50] LABS: EOSMR EPITHELIAL CELLS FEW EPITH CELLS
[2016-11-12 05:18] LABS: ANION GAP 7 mEq/L (8-16); CALCIUM 8.4 mg/dL (8.5-10.4); CARBON DIOXIDE 21 mEq/l (22-31); CHLORIDE 107 mEq/L (97-110); CREATININE 1.9 mg/dL (0.7-1.3); GLOMERULAR FILTRATION RATE 38; GLUCOSE 191 mg/dL (70-100); POTASSIUM 4.2 mEq/L (3.5-5.2); SODIUM 135 mEq/L (134-144)
[2016-11-12] MEDS: INSULIN LISPRO 100 UNIT/ML SC SCH ×3 (08:29→18:27)
[2016-11-12] MEDS: hydrALAZINE 25 MG TAB PO SCH ×2 (08:30→16:11)
--- NOTE | 2016-11-12 09:06 | HOSPPROG ---
Hospitalist Progress Note Assessment/Plan: 50-year-old Icelandic-speaking male presenting with left diabetic foot infection/ osteomyelitis status post amputation of left great toe and 4th toe # uncontrolled diabetes mellitus A1c 9.8 -will hold sulfonylurea and metformin -will increase glargine from 10 units -> 15 units sq and continue correctional insulin as ordered # acute kidney injury (improving) with RBC casts concerning for infectious GN -continue to hold NSAIDs -DC lisinopril -monitor renal function daily -nephrology consult # left great toe and 4th toe osteomyelitis -continue wound care and antibiotics per ID -agree with renal dosing of zosyn patient is high risk Subjective: improved pain control with oxyir. no fevers or chills. no urinary complaints Objective: Vital Signs Temp Pulse Resp BP Pulse Ox 36.9 C 82 16 175/91 H 97 11/12/16 08:00 11/12/16 08:00 11/12/16 08:00 11/12/16 08:00 11/12/16 08:00 Laboratory Results 11/11/16 09:51 11/12/16 04:38 11/11/16 11/12/16 11/13/16 05:59 05:59 05:59 Intake Total 1300 575 Output Total 850 1575 1000 Balance 450 -1000 -1000 PT 12.7 SEC (12.0-15.0) 11/09/16 07:48 INR 0.96 (0.83-1.16) 11/09/16 07:48 - Physical Exam Constitutional: no apparent distress, appears nourished, not in pain Cardiovascular: regular rate and rhythym, no murmur, rub, or gallop Respiratory: no respiratory distress, no rales or rhonchi, clear to auscultation Gastrointestinal: normoactive bowel sounds, soft, non-tender abdomen, no palpable masses Skin: no rashes or abrasions, no fluctuance, no induration Neurologic: AAOx3, CN II-XII Intact, No facial droop ICD10 Worksheet Patient Problems: Problems Problem Status Onset Diabetic foot infection Acute
[2016-11-12] MEDS ORDERED: INSULIN GLARGINE 100 UNITS/ML SYRINGE SC SCH (09:08)
[2016-11-12] MEDS: ASPIRIN EC 81 MG TAB PO SCH (09:41)
--- NOTE | 2016-11-12 09:51 | SOAPPROG ---
SOAP Progress Note Assessment/Plan: Assessment: 50yo male s/p toe amputation Left foot pain controlled, feel less foggy overall, no complaints Pe comfortable alert, (seems more alert than previous visits), sitting in chair no signs of distress Left foot bandage dry, no difficulty dorsiflexion/plantar flexion left ankle Plan: ART studies will be reviewed this weekend by Dr Cristina continue wound care 11/10/16 12:41 11/11/16 12:47 11/12/16 09:49 Objective: Vital Signs Temp Pulse Resp BP Pulse Ox 36.9 C 82 16 175/91 H 97 11/12/16 08:00 11/12/16 08:00 11/12/16 08:00 11/12/16 08:00 11/12/16 08:00 Laboratory Results 11/11/16 09:51 11/12/16 04:38 11/11/16 11/12/16 11/13/16 05:59 05:59 05:59 Intake Total 1300 575 Output Total 850 1575 1000 Balance 450 -1000 -1000 PT 12.7 SEC (12.0-15.0) 11/09/16 07:48 INR 0.96 (0.83-1.16) 11/09/16 07:48 ICD10 Worksheet Patient Problems: Problems Problem Status Onset Diabetic foot infection Acute
--- NOTE | 2016-11-12 10:44 | PCMIDPN ---
Assessment/Plan: 1. Left diabetic foot infection/osteomyelitis status post amputation left great toe and 4th toe postop day 2: The foot itself looks good to me, with no obvious cellulitis. Again, duration of antibiotics contingent on pathology report, which is still pending. 2. Acute renal failure: Creatinine better today. I did call the lab, as the way it is presented in [facility] is confusing, as it looks like the patient has red cell casts. The lab confirmed that he does *not* have red cell casts. Also of note, urine eosinophils negative. Zosyn was dose adjusted yesterday appropriately. 11/12/16 10:37 11/12/16 10:45 Subjective: Patient states he feels better overall. No complaints. Objective: Zosyn 2.25 g IV q.6 hours day 3 T-max 37.3degrees Vital Signs Temp Pulse Resp BP Pulse Ox 36.9 C 82 16 175/91 H 97 11/12/16 08:00 11/12/16 08:00 11/12/16 08:00 11/12/16 08:00 11/12/16 08:00 Laboratory Results 11/11/16 09:51 11/12/16 04:38 11/11/16 11/12/16 11/13/16 05:59 05:59 05:59 Intake Total 1300 575 Output Total 850 1575 1000 Balance 450 -1000 -1000 ESR 86 MM/HR (0-20) H 11/09/16 07:48 C-Reactive Protein 25.2 mg/L (<10.0) H 11/09/16 07:48 No new microbiology - Physical Exam General Appearance: alert, no apparent distress Respiratory: lungs clear Extremities: other (Left foot, amputation sites are clean with no drainage. Sutures in place. Brawny discoloration along dorsum of foot that is old. No active cellulitis.) ICD10 Worksheet Patient Problems: Problems Problem Status Onset Diabetic foot infection Acute
[2016-11-12] MEDS: oxyCODONE IR 5 MG TAB PO PRN ×3 (11:41→22:07)
--- NOTE | 2016-11-12 16:01 | GCON ---
[f rep st] CONSULTATION HISTORY OF PRESENT ILLNESS: The patient is a very pleasant 50-year-old gentleman with known stage 2 chronic kidney disease, baseline creatinine of around 1. He does have proteinuria. He was in his usual state of health until early this year when he began having an ulceration on his left great toe . He was admitted to the hospital in September for amputation. Subsequently, the wound broke down a nd became infected. Also, his 4th toe on the left foot had a wound and broke down and looked like i t had osteomyelitis as well. The patient was admitted recently for amputation of his 4th toe on his left foot. In the evaluation of that, he did have a CT angiogram on 11/10/2016 that showed signifi cant small vessel disease but patent larger vessels. The patient underwent amputation on 11/11/2016 . On admission, serum creatinine was 1.1; on 11/10, 1.4. After his angiogram, it increased to 2.2 and today is down to 1.9. The patient denies fevers, chills, nausea, or vomiting. He has occasional s hortness of breath. No chest pain. No cough, sputum, hemoptysis, hematemesis, epistaxis, abdominal pain, diarrhea, constipation, melena, hematochezia, blurred vision, double vision, headache, orthop prakash, paroxysmal nocturnal dyspnea, palpitations, syncope, diminished urine output, gross hematuria, dysuria, or rash. He does have chronic pain for which he takes Aleve. PAST MEDICAL HISTORY: Significant for: 1. Diabetes mellitus type 2 diagnosed about 3 years ago, but he suspects he has had it for a lot lo nger than that. 2. Hypertension, again diagnosed about 3 years ago. 3. Proteinuria. 4. Chronic kidney disease, stage 2. 5. Peripheral vascular disease. 6. Amputation of left great toe and left 4th toe. 7. History of osteomyelitis. ALLERGIES: None known. MEDICATIONS: Include: 1. Aspirin 81 mg a day. 2. Glucotrol 10 mg a day. 3. Hydralazine 25 mg 3 times daily. 4. Lisinopril 10 mg a day. 5. Metformin 1 g twice daily. 6. Aleve 440 mg twice daily. 7. Insulin. 8. Zosyn 2.25 g every 6 hours. FAMILY HISTORY: Positive for diabetes, hypertension, and alcohol use. SOCIAL HISTORY: He is . He does not use tobacco, alcohol, IV or recreational drugs. 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 REVIEW OF SYSTEMS: A complete 12-point review of systems was performed with the pertinent positives and negatives as per previous sections. PHYSICAL EXAMINATION: VITAL SIGNS: Blood pressure is 175/93, pulse 86, respirations 16, temperatur e 36.7. Urine output 1.4 L so far today. GENERAL: He is awake, alert, cooperative, in no acute di stress. His family is at the bedside. HEENT: Pupils are reactive to light. Extraocular movements are intact. Mucous membranes are moist. NECK: No lymphadenopathy, thyromegaly, JVD, or bruit. H EART: Regular. No rub. No S3. LUNGS: No rales, rhonchi, or wheezes. ABDOMEN: Bowel sounds are positive. Soft, nontender, nondistended. Mildly obese. No obvious organomegaly, masses, or bruit s. EXTREMITIES: His left foot is wrapped. He does have trace edema. NEUROLOGIC: No asterixis. SKIN: He has changes of arterial and venous insufficiency in his lower extremities bilaterally. LY MPHATIC: No palpable lymphadenopathy or lymphedema. MUSCULOSKELETAL: Tender over his recent surgi levi site. LABORATORY DATA: Serum sodium is 135, potassium 4.2, chloride 107, CO2 21, BUN 36, creatinine 1.9 ( down from 2.2 yesterday), glucose 199. WBC is 11.9, hemoglobin 12.2, hematocrit 36, platelet count 293,000, erythrocyte sedimentation rate 86. Blood cultures are negative x2 at 24 hours. AST 12, al bumin 2.4. Urinalysis: Specific gravity of 1.026, pH 5, +3 protein, +1 blood. He did have occasio nal red blood cell casts. Urine eosinophils are negative. Calcium is 8.4. Ultrasound of his kidneys showed the right to be 12.3 cm and left 12.8 cm. He had a normal cortex. His postvoid residual was elevated at [address] angiogram on 11/10/2016 showed small vessel disease but patent larger vessels. IMPRESSION: 1. Acute kidney injury, likely a combination of intravenous contrast and vasomotor nephropathy from nonsteroidal antiinflammatory drugs with his lisinopril. 2. RBC casts in his urine. I suspect he may have an infectious glomerular nephritis. That being s aid, I think it would be best to check some other serologies, including an ANC, CAITY, glomerular base ment membrane antibody, hepatitis serologies, rheumatoid factor, etc. 3. Serum creatinine is improving. I suspect it will continue to do so. 4. Counseled regarding cessation of nonsteroidal antiinflammatory drugs, particularly in light of h is lisinopril therapy. 5. Counseled regarding the progression of chronic kidney disease. 6. I think he needs to follow up with Nephrology when he is discharged from the hospital. 7. Quantify his proteinuria. Thank you for allowing me to participate in the care of your patient. If there are any questions, marya tam do not hesitate to contact me. I will be following along with you. /[id number]/MODL
[2016-11-12 16:31] LABS: VITAMIN D 25-HYDROXY TOTAL < 12.8 ng/mL (30-100)
[2016-11-12] MEDS: ONDANSETRON 4 MG/2 ML VIAL IVP PRN (18:27)
[2016-11-13] MEDS: hydrALAZINE 25 MG TAB PO SCH ×4 (01:16→23:25)
[2016-11-13] MEDS: PIPERACILLIN/TAZO 2.25 GM/DEX 50 ML IV SCH ×2 (02:11→08:45)
[2016-11-13] MEDS: oxyCODONE IR 5 MG TAB PO PRN ×3 (02:11→19:42)
[2016-11-13 05:17] LABS: ALBUMIN 2.5 g/dL (3.5-5.0); ANION GAP 8 mEq/L (8-16); CALCIUM 8.5 mg/dL (8.5-10.4); CARBON DIOXIDE 23 mEq/l (22-31); CHLORIDE 107 mEq/L (97-110); CREATININE 1.5 mg/dL (0.7-1.3); GLOMERULAR FILTRATION RATE 49; GLUCOSE 123 mg/dL (70-100); POTASSIUM 4.2 mEq/L (3.5-5.2); SODIUM 138 mEq/L (134-144)
[2016-11-13 06:42] LABS: GLUCOSE 124 mg/dL (70-100)
[2016-11-13] MEDS: ASPIRIN EC 81 MG TAB PO SCH (08:45)
[2016-11-13] MEDS: INSULIN LISPRO 100 UNIT/ML SC SCH ×3 (09:50→17:56)
--- NOTE | 2016-11-13 11:04 | HOSPPROG ---
Hospitalist Progress Note Assessment/Plan: 50-year-old Greenlandic-speaking male presenting with left diabetic foot infection/ osteomyelitis status post amputation of left great toe and 4th toe # uncontrolled diabetes mellitus A1c 9.8 -will hold sulfonylurea and metformin -will increase glargine from 15 units -> 17 units sq and continue correctional insulin as ordered # acute kidney injury (improving) with RBC casts concerning for infectious GN -continue to hold NSAIDs -DC lisinopril -monitor renal function daily -nephrology consult # Hypertension -cont to hold lisinopril -start norvasc 5mg daily # left great toe and 4th toe osteomyelitis -continue wound care and antibiotics per ID -agree with renal dosing of zosyn -await path results to help guide duration of iv abx therapy patient is high risk Subjective: pain controlled. no fevers or chills. seen with medical traveling phlebotomist present Objective: Vital Signs Temp Pulse Resp BP Pulse Ox 36.9 C 78 16 171/91 H 98 11/13/16 07:32 11/13/16 07:32 11/13/16 07:32 11/13/16 07:32 11/13/16 07:32 Laboratory Results 11/11/16 09:51 11/13/16 04:17 11/12/16 11/13/16 11/14/16 05:59 05:59 05:59 Intake Total 575 200 Output Total 1575 2350 525 Balance -1000 -2150 -525 PT 12.7 SEC (12.0-15.0) 11/09/16 07:48 INR 0.96 (0.83-1.16) 11/09/16 07:48 Laboratory Tests 11/12/16 11/12/16 11/13/16 08:16 11:34 04:17 Glucose 124 H POC Glucose 143 H 286 H 11/13/16 04:17 Glucose 123 H POC Glucose - Physical Exam Constitutional: no apparent distress, appears nourished, not in pain Ears, Nose, Mouth, Throat: moist mucous membranes, hearing normal, ears appear normal, no oral mucosal ulcers Cardiovascular: regular rate and rhythym, no murmur, rub, or gallop Respiratory: no respiratory distress, no rales or rhonchi, clear to auscultation Gastrointestinal: normoactive bowel sounds, soft, non-tender abdomen, no palpable masses Skin: warm ICD10 Worksheet Patient Problems: Problems Problem Status Onset Diabetic foot infection Acute
--- NOTE | 2016-11-13 11:05 | PCMIDPN ---
Assessment/Plan: 1. Left diabetic foot infection/osteomyelitis status post amputation left great toe and 4th toe postop day 2: The foot itself looks good to me, with no obvious cellulitis. Again, duration of antibiotics contingent on pathology report, which is still pending. 2. Acute renal failure: Creatinine improved. Will adjust Zosyn accordingly. As per my previous notes, hopefully will not require prolonged course of this antibiotic. Subjective: In good spirits. No complaints. Says that his pain is under control. Denies chills, nausea vomiting diarrhea or other. Objective: Zosyn 2.25 g IV q.6 hours day 4. Afebrile Vital Signs Temp Pulse Resp BP Pulse Ox 36.9 C 78 16 171/91 H 98 11/13/16 07:32 11/13/16 07:32 11/13/16 07:32 11/13/16 07:32 11/13/16 07:32 Laboratory Results 11/11/16 09:51 11/13/16 04:17 11/12/16 11/13/16 11/14/16 05:59 05:59 05:59 Intake Total 575 200 Output Total 1575 2350 525 Balance -1000 -2150 -525 ESR 86 MM/HR (0-20) H 11/09/16 07:48 C-Reactive Protein 25.2 mg/L (<10.0) H 11/09/16 07:48 Pathology report pending Blood cultures negative from November 09 No other microbiologic data - Physical Exam General Appearance: alert, no apparent distress EENT: pharynx normal Respiratory: lungs clear Extremities: other (Left foot toe amputation sites are clean. No evidence of cellulitis.) ICD10 Worksheet Patient Problems: Problems Problem Status Onset Diabetic foot infection Acute
--- NOTE | 2016-11-13 11:13 | SOAPPROG ---
SOAP Progress Note Assessment/Plan: Assessment: 50yo male s/p toe amputation Left foot pain controlled, feel less foggy overall, no complaints Pe comfortable alert, (seems more alert than previous visits), sitting in chair no signs of distress Left foot incisions clean/dry, no difficulty dorsiflexion/plantar flexion left ankle, foot warm to touch. Plan: continue wound care, ABX 11/10/16 12:41 11/11/16 12:47 11/12/16 09:49 11/13/16 11:12 Objective: Vital Signs Temp Pulse Resp BP Pulse Ox 36.9 C 78 16 171/91 H 98 11/13/16 07:32 11/13/16 07:32 11/13/16 07:32 11/13/16 07:32 11/13/16 07:32 Laboratory Results 11/11/16 09:51 11/13/16 04:17 11/12/16 11/13/16 11/14/16 05:59 05:59 05:59 Intake Total 575 200 Output Total 1575 4130 525 Balance -1000 -2150 -525 PT 12.7 SEC (12.0-15.0) 11/09/16 07:48 INR 0.96 (0.83-1.16) 11/09/16 07:48 ICD10 Worksheet Patient Problems: Problems Problem Status Onset Diabetic foot infection Acute
--- NOTE | 2016-11-13 11:28 | SOAPPROG ---
SOAP Progress Note Assessment/Plan: Assessment: ALYSON better, baseline creat in 1-1.1 range GN labs still pending RF pos at 16.7 foot feels better today Plan: await labs avoid NSAIDS and contrast follow lytes vol and renal function 11/13/16 11:24 Subjective: spirits good denies pain nausea vomiting or anorexia no cp sob or fatigue Objective: Vital Signs Temp Pulse Resp BP Pulse Ox 36.9 C 78 16 171/91 H 98 11/13/16 07:32 11/13/16 07:32 11/13/16 07:32 11/13/16 07:32 11/13/16 07:32 Laboratory Results 11/11/16 09:51 11/13/16 04:17 11/12/16 11/13/16 11/14/16 05:59 05:59 05:59 Intake Total 575 200 Output Total 1575 2350 525 Balance -1000 -2150 -525 PT 12.7 SEC (12.0-15.0) 11/09/16 07:48 INR 0.96 (0.83-1.16) 11/09/16 07:48 Physical Exam - Physical Exam General Appearance: alert, no apparent distress Respiratory: No rales, No rhonchi, No wheezing Cardiac/Chest: regular rate, rhythm, edema (trace), No friction rub Abdomen: normal bowel sounds, non-tender, soft Extremities: other (left foot wrapped and elevated) Neuro/Psych: alert, normal mood/affect, oriented x 3 ICD10 Worksheet Patient Problems: Problems Problem Status Onset Diabetic foot infection Acute
[2016-11-13] MEDS: PIPERACILLIN/TAZO 3.375 GM/DEX 50 ML IV SCH ×3 (13:01→23:26)
--- NOTE | 2016-11-13 16:12 | SOAPPROG ---
SOAP Progress Note Assessment/Plan: Assessment: 50yo male s/p toe amputation Left foot pain controlled, feel less foggy overall, no complaints Pe comfortable alert, (seems more alert than previous visits), sitting in chair no signs of distress Left foot incisions clean/dry, no difficulty dorsiflexion/plantar flexion left ankle, foot warm to touch. Plan: continue wound care, ABX 11/13/16 11:12 11/13/16 16:10 ordered ART Studies of Lower Ext again. Ordered same last week but either not done or results not placed in front of paper chart. These studies are normally done through [facility]. If any questions or if test was done please notify Mary Lou HINOJOSA on Monday. Objective: Vital Signs Temp Pulse Resp BP Pulse Ox 36.6 C 85 14 166/89 H 92 11/13/16 15:49 11/13/16 15:49 11/13/16 15:49 11/13/16 15:49 11/13/16 15:49 Laboratory Results 11/11/16 09:51 11/13/16 04:17 11/12/16 11/13/16 11/14/16 05:59 05:59 05:59 Intake Total 575 200 400 Output Total 1575 2350 825 Balance -1000 -2150 -425 PT 12.7 SEC (12.0-15.0) 11/09/16 07:48 INR 0.96 (0.83-1.16) 11/09/16 07:48 ICD10 Worksheet Patient Problems: Problems Problem Status Onset Diabetic foot infection Acute
[2016-11-13] MEDS ORDERED: hydrALAZINE 20 MG/ML VIAL IVP ONE (20:30)
[2016-11-13] MEDS: INSULIN GLARGINE 100 UNITS/ML SYRINGE SC SCH (22:37)
[2016-11-14] MEDS: ONDANSETRON 4 MG/2 ML VIAL IVP PRN (03:13)
[2016-11-14] MEDS ORDERED: hydrALAZINE 20 MG/ML VIAL IVP PRN (03:23)
[2016-11-14 04:59] LABS: % IMMATURE GRANULYOCYTES 0.3 % (0.0-1.1); ABSOLUTE IMMATURE GRANULOCYTES 0.04 10^3/uL (0.00-0.10); ADD DIFF? NO; ADD MORPH? NO; ADD SCAN? NO; ATYPICAL LYMPHOCYTE FLAG 0 (0-99); FRAGMENT RBC FLAG 0 (0-99); HEMATOCRIT 34.7 % (40.0-51.0); HEMOGLOBIN 11.6 g/dL (13.7-17.5); LEFT SHIFT FLG 0 (0-99); LIPEMIA HEMOLYSIS FLAG 80 (0-99); MEAN CELL HEMOGLOBIN 28.9 pg (27.9-34.1); MEAN CELL HEMOGLOBIN CONCENTR. 33.4 g/dL (32.4-36.7); MEAN CELL VOLUME 86.3 fL (81.5-99.8); MEAN PLATELET VOLUME 9.5 fL (8.7-11.7); PLATELET CLUMPS FLAG 0 (0-99); PLATELET COUNT 349 10^3/uL (150-400); RED BLOOD CELL COUNT 4.02 10^6/uL (4.40-6.38); RED CELL DISTRIBUTION WIDTH 12.5 % (11.5-15.2)
[2016-11-14 05:34] LABS: ANION GAP 9 mEq/L (8-16); CALCIUM 8.9 mg/dL (8.5-10.4); CARBON DIOXIDE 23 mEq/l (22-31); CHLORIDE 105 mEq/L (97-110); CREATININE 1.4 mg/dL (0.7-1.3); GLOMERULAR FILTRATION RATE 53; GLUCOSE 152 mg/dL (70-100); POTASSIUM 4.3 mEq/L (3.5-5.2); SODIUM 137 mEq/L (134-144)
[2016-11-14] MEDS: PIPERACILLIN/TAZO 3.375 GM/DEX 50 ML IV SCH ×4 (05:34→23:51)
[2016-11-14 06:04] LABS: ALBUMIN 2.8 g/dL (3.5-5.0)
[2016-11-14] MEDS: INSULIN LISPRO 100 UNIT/ML SC SCH ×3 (08:58→16:28)
[2016-11-14] MEDS: ASPIRIN EC 81 MG TAB PO SCH (08:59)
[2016-11-14] MEDS: hydrALAZINE 25 MG TAB PO SCH ×3 (08:59→23:52)
[2016-11-14] MEDS: amLODIPine BESYLATE 5 MG TAB PO SCH (08:59)
--- NOTE | 2016-11-14 09:31 | HOSPPROG ---
Hospitalist Progress Note Assessment/Plan: Mr Katz is a 50-year-old Danish-speaking male presenting with left diabetic foot infection/osteomyelitis status post amputation of left great toe and 4th toe. Today is my first encounter with the patient, chart reviewed. Met with the patient with the network services project manager. # uncontrolled diabetes mellitus A1c 9.8 -will hold sulfonylurea and metformin -glargine increased from 15 units -> 17 units sq and continue correctional insulin as ordered -glucose is better this a.m. 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 is 159/84 # left great toe and 4th toe osteomyelitis -continue wound care and antibiotics per ID -agree with renal dosing of Zosyn -await path results to help guide duration of iv abx therapy #DVT prophylaxis: ambulation frequently, no lovenox due to the above, if needed could use heparin sq tid. Reviewed her care with Dr Maurer/ the hospitalist will assume primary care. Subjective: Benoit has no complaints/ feeling well. Objective: Vital Signs Temp Pulse Resp BP Pulse Ox 36.7 C 79 16 159/87 H 89 L 11/14/16 08:45 11/14/16 08:45 11/14/16 08:45 11/14/16 08:45 11/14/16 08:45 Laboratory Results 11/14/16 04:47 11/14/16 04:47 11/13/16 11/14/16 11/15/16 05:59 05:59 05:59 Intake Total 200 1350 Output Total 2350 2075 Balance -2150 -725 PT 12.7 SEC (12.0-15.0) 11/09/16 07:48 INR 0.96 (0.83-1.16) 11/09/16 07:48 - Physical Exam Constitutional: no apparent distress, appears nourished, not in pain Eyes: anicteric sclera Ears, Nose, Mouth, Throat: hearing normal Cardiovascular: regular rate and rhythym Respiratory: no respiratory distress Gastrointestinal: normoactive bowel sounds Skin: warm, normal color, other (left foot in dressing) Musculoskeletal: no muscle tenderness Neurologic: AAOx3 Psychiatric: interacting appropriately, not anxious ICD10 Worksheet Patient Problems: Problems Problem Status Onset Diabetic foot infection Acute
--- NOTE | 2016-11-14 11:38 | SOAPPROG ---
SOAP Progress Note Assessment/Plan: Assessment/Plan: ALYSON on CKD stage II: baseline Cr is around 1.1. Pt with multifactorial ALYSON, including exposures to contrast, NSAIDs, and lisinopril. Noted to have RBC casts and proteinuria as well, could have a post-infectious GN. He has good UOP and Cr is downtrending, peaked at 2.2 and now is down to 1.4. His RF is elevated at 16.7. PTH is wnl at 30. Remainder of serological workup pending. - Will continue to monitor renal function. - Will continue to follow serological workup. - Will also send a urine PCR. - Avoid MOM, morphine, demerol, NSAIDs, contrast, aminoglycosides, fleets, ACEI /ARBs, and other nephrotoxins for now. HTN: not at goal, lisinopril on hold for now with ALYSON as above. - amlodipine being added today. - Will continue to monitor. Subjective: No acute events overnight. Pt states he is not having much pain. He is having good UOP. He has no other complaints this am. Objective: Vital Signs Temp Pulse Resp BP Pulse Ox 36.7 C 79 16 159/87 H 89 L 11/14/16 08:45 11/14/16 08:45 11/14/16 08:45 11/14/16 08:45 11/14/16 08:45 Laboratory Results 11/14/16 04:47 11/14/16 04:47 11/13/16 11/14/16 11/15/16 05:59 05:59 05:59 Intake Total 200 1350 Output Total 2350 2075 600 Balance -2150 -725 -600 PT 12.7 SEC (12.0-15.0) 11/09/16 07:48 INR 0.96 (0.83-1.16) 11/09/16 07:48 General: alert and oriented, no acute distress Eyes: EOMI, PERRL OP: Clear CV: RRR Resp: nonlabored respirations Abd: Soft, NT Ext: no edema BLE, L foot wrapped in bandages Neuro: CN II-XII grossly intact, no asterixis Psych: cooperative, appropriate mood and affect ICD10 Worksheet Patient Problems: Problems Problem Status Onset Diabetic foot infection Acute
--- NOTE | 2016-11-14 12:12 | SOAPPROG ---
SOAP Progress Note Assessment/Plan: Assessment/Plan: 50yo male s/p toe amputation Left foot denies pain, feels more clear, no complaints Pe comfortable alert, sitting in bed upright no signs of distress Left foot incisions clean/dry, no difficulty dorsiflexion/plantar flexion left ankle, foot warm to touch. Plan: continue wound care, ABX d/w'ed Dr Cristina who still wants arterial studies done even though he has had a CTA on 11/10. D/w'ed US. 11/14/16 12:10 Objective: Vital Signs Temp Pulse Resp BP Pulse Ox 36.6 C 80 16 150/78 H 91 L 11/14/16 11:34 11/14/16 11:34 11/14/16 11:34 11/14/16 11:34 11/14/16 11:34 Laboratory Results 11/14/16 04:47 11/14/16 04:47 11/13/16 11/14/16 11/15/16 05:59 05:59 05:59 Intake Total 200 1350 Output Total 2350 2075 600 Balance -2150 -725 -600 PT 12.7 SEC (12.0-15.0) 11/09/16 07:48 INR 0.96 (0.83-1.16) 11/09/16 07:48 ICD10 Worksheet Patient Problems: Problems Problem Status Onset Diabetic foot infection Acute
[2016-11-14 13:20] LABS: GLOMERULAR BSMNT MEMBRANE IGG <0.2 U
--- NOTE | 2016-11-14 13:37 | WOCRNPDOC ---
NANDINI Advanced Assessment Note - Skin Integrity Problem, Advanced Assess Left First Toe Dressing Type: Gauze, Hortencia, Mepilex Transfer, Silver Contact Layer (Aquacel Ag+ ) Dressing Description: Clean/Dry Exudate Amount: Scant Exudate Characteristic(s): Dried, Serosanguinous Integumentary Issue Intervention: Visualized Under Dressing Nelsy Wound Tissue: Ecchymotic, Dry Nelsy Wound Swelling: Mild Wound Edges: Well Defined Site Odor: None Skin Integrity Problem Comment: Sutures intact; incision margins ecchymotic but with absence of maceration and an appearance of improved turgor. Patient reports that entire distal foot is "less painful/tender," except for one area at the pad of the great toe metatarsal head, which he described as tender when gently palpated. Generally improved since Monday. Discussed findings with Dr. Maurer, and have adjusted orders to reflect the modification of using Mepilex non-bordered foam for padding, instead of transfer foam. Noted in orders, will inform JOSE Cardoza.
[2016-11-14 13:43] LABS: C3 COMPLEMENT COMPONENT 121 mg/dL (75 - 175); C4 COMPLEMENT COMPONENT 19 mg/dL (14 - 40)
[2016-11-14 13:56] LABS: ANTINUCLEAR ANTIBODIES SCREEN 1.92 UNITS (<1.00)
--- NOTE | 2016-11-14 18:11 | PCMIDPN ---
Assessment/Plan: Assessment/Plan: * Left foot great toe and 4th toe osteomyelitis status post amputation: Clinically improved with resolved cellulitis. Bone pathology is pending although surgically felt bone resection would likely have removed entirety of osteomyelitis. Will continue Zosyn through today with anticipated discontinuation tomorrow given cellulitic component has resolved. Continue local wound care and follow-up bone pathology. 11/14/16 18:09 Subjective: Patient with diarrhea yesterday. No diarrhea today. Overall feels clinically improved. Objective: Vital Signs Temp Pulse Resp BP Pulse Ox 37.1 C 80 17 158/85 H 90 L 11/14/16 15:54 11/14/16 15:54 11/14/16 15:54 11/14/16 15:54 11/14/16 15:54 Laboratory Results 11/14/16 04:47 11/14/16 04:47 11/13/16 11/14/16 11/15/16 05:59 05:59 05:59 Intake Total 200 1350 150 Output Total 2350 2075 600 Balance -2150 -725 -450 ESR 86 MM/HR (0-20) H 11/09/16 07:48 C-Reactive Protein 25.2 mg/L (<10.0) H 11/09/16 07:48 Zosyn # 5 Bone pathology pending - Physical Exam General Appearance: alert, no apparent distress EENT: No scleral icterus, No thrush, No conjunctival petechiae Respiratory: No lungs clear, No respiratory distress Cardiac/Chest: regular rate, rhythm Extremities: inflammation (Left foot shows clean amputation site of great toe and 4th toe; cellulitis resolved; no drainage present) Abdomen: non-tender, No distended ICD10 Worksheet Patient Problems: Problems Problem Status Onset Diabetic foot infection Acute
[2016-11-14 18:34] LABS: DSDNA IF INDICATED INDICATED (NOT IND)
[2016-11-14] MEDS: INSULIN GLARGINE 100 UNITS/ML SYRINGE SC SCH (21:13)
[2016-11-14] MEDS: oxyCODONE IR 5 MG TAB PO PRN ×2 (21:13→23:52)
[2016-11-15 05:19] LABS: POTASSIUM 4.1 mEq/L (3.5-5.2)
[2016-11-15 05:20] LABS: ALBUMIN 2.5 g/dL (3.5-5.0); ANION GAP 8 mEq/L (8-16); CALCIUM 8.5 mg/dL (8.5-10.4); CARBON DIOXIDE 25 mEq/l (22-31); CHLORIDE 105 mEq/L (97-110); CREATININE 1.6 mg/dL (0.7-1.3); GLOMERULAR FILTRATION RATE 46; GLUCOSE 225 mg/dL (70-100); SODIUM 138 mEq/L (134-144)
[2016-11-15] MEDS: PIPERACILLIN/TAZO 3.375 GM/DEX 50 ML IV SCH ×4 (06:15→23:57)
[2016-11-15] MEDS: oxyCODONE IR 5 MG TAB PO PRN ×3 (06:15→21:25)
--- NOTE | 2016-11-15 07:04 | SOAPPROG ---
SOJEAN Progress Note Assessment/Plan: Assessment: s/p amputation of metatarsal head and 4th toe and metatarsal head DM HTN CKI Angiogram with runoff - calcified vessels distal can consider RANJAN/PVR Walker boot to fully off load Will continue to see while inpatient Sutures out in 2-3 weeks F/U with Dr. Maurer S: Feeling better O: Ecchymosis over foot, suture line cdi Plan: 11/15/16 07:01 Objective: Vital Signs Temp Pulse Resp BP Pulse Ox 36.4 C 80 14 178/81 H 90 L 11/15/16 04:00 11/15/16 04:00 11/15/16 04:00 11/15/16 04:00 11/15/16 04:00 Laboratory Results 11/14/16 04:47 11/15/16 04:29 11/14/16 11/15/16 11/16/16 05:59 05:59 05:59 Intake Total 1350 450 Output Total 2075 600 Balance -725 -150 PT 12.7 SEC (12.0-15.0) 11/09/16 07:48 INR 0.96 (0.83-1.16) 11/09/16 07:48 ICD10 Worksheet Patient Problems: Problems Problem Status Onset Diabetic foot infection Acute
[2016-11-15] MEDS: INSULIN LISPRO 100 UNIT/ML SC SCH ×3 (08:33→17:54)
[2016-11-15] MEDS: amLODIPine BESYLATE 5 MG TAB PO SCH (08:34)
[2016-11-15] MEDS: ASPIRIN EC 81 MG TAB PO SCH (08:34)
[2016-11-15] MEDS: hydrALAZINE 25 MG TAB PO SCH ×3 (08:34→23:57)
--- NOTE | 2016-11-15 10:25 | SOAPPROG ---
SOAP Progress Note Assessment/Plan: Assessment: s/p amputation of metatarsal head and 4th toe and metatarsal head. Also with DM, HTN, CKD Final pathology pending Angiogram with runoff - calcification/stenosis of small distal vessels, no problems with macrovasculature Art studies ordered Walker boot to fully offload when ambulating. May remove when in bed Sutures out in 2-3 weeks PT/OT Dispo: appreciate hospitalists, ID and nephrology. Will f/u with Dr. Maurer as outpatient. S: No complaints today. He denies pain, fevers or chills. No drainage from incisions O: Laying in bed,comfortable, NAD. Floor Tiling Professional at bedside No increased WOB Foot warm. Ecchymosis of dorsal foot. Sutures CDI without e/o infection. Minimal peripheral edema. Dressings replaced (aquacel Ag, tegaderm foam and kerlix) Objective: Vital Signs Temp Pulse Resp BP Pulse Ox 36.8 C 80 14 166/84 H 92 11/15/16 07:39 11/15/16 07:39 11/15/16 07:39 11/15/16 07:39 11/15/16 07:39 Laboratory Results 11/14/16 04:47 11/15/16 04:29 11/14/16 11/15/16 11/16/16 05:59 05:59 05:59 Intake Total 1350 800 Output Total 2075 600 Balance -725 200 PT 12.7 SEC (12.0-15.0) 11/09/16 07:48 INR 0.96 (0.83-1.16) 11/09/16 07:48 ICD10 Worksheet Patient Problems: Problems Problem Status Onset Diabetic foot infection Acute
--- NOTE | 2016-11-15 13:46 | PCMIDPN ---
Assessment/Plan: Assessment/Plan: 1. Left great toe and 4th toe osteomyelitis s/p amputation: - Path still pending. I spoke with path. specimen still not ready to be analyzed. -Currently on zosyn. -OP note reviewed. -care coordinated with surgery team. - will meds zosyn 3.375gm q6- Subjective: Afebrile. Feels well. Denies sob, abd pain or diarrhea. foot with pain but under control. Objective: Vital Signs Temp Pulse Resp BP Pulse Ox 36.6 C 81 14 158/84 H 91 L 11/15/16 11:32 11/15/16 11:32 11/15/16 11:32 11/15/16 11:32 11/15/16 11:32 Laboratory Results 11/14/16 04:47 11/15/16 04:29 11/14/16 11/15/16 11/16/16 05:59 05:59 05:59 Intake Total 1350 800 450 Output Total 2075 600 600 Balance -725 200 -150 ESR 86 MM/HR (0-20) H 11/09/16 07:48 C-Reactive Protein 25.2 mg/L (<10.0) H 11/09/16 07:48 - Physical Exam General Appearance: alert, no apparent distress Respiratory: lungs clear Cardiac/Chest: regular rate, rhythm Extremities: other (left foot: ecchymosis noted. sutures in place. no erythema. no drainage. nontender. foot not warm to touch.) Abdomen: normal bowel sounds, non-tender, soft, No distended Skin: other (dhara nino.) ICD10 Worksheet Patient Problems: Problems Problem Status Onset Diabetic foot infection Acute
--- NOTE | 2016-11-15 14:04 | HOSPPROG ---
Hospitalist Progress Note Assessment/Plan: Mr Katz is a 50-year-old Yoruba-speaking male presenting with left diabetic foot infection/osteomyelitis status post amputation of left great toe and 4th toe. Met with the patient with the global project manager. 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 Hospitalist to be the primary. Subjective: Bneoit has no complaints of pain/ambulating in room with the boot on. Objective: Vital Signs Temp Pulse Resp BP Pulse Ox 36.6 C 81 14 158/84 H 91 L 11/15/16 11:32 11/15/16 11:32 11/15/16 11:32 11/15/16 11:32 11/15/16 11:32 Laboratory Results 11/14/16 04:47 11/15/16 04:29 11/14/16 11/15/16 11/16/16 05:59 05:59 05:59 Intake Total 1350 800 450 Output Total 2075 600 600 Balance -725 200 -150 PT 12.7 SEC (12.0-15.0) 11/09/16 07:48 INR 0.96 (0.83-1.16) 11/09/16 07:48 - Physical Exam Constitutional: no apparent distress, appears nourished, not in pain Eyes: PERRL Ears, Nose, Mouth, Throat: hearing normal Cardiovascular: regular rate and rhythym Respiratory: no respiratory distress Gastrointestinal: normoactive bowel sounds Skin: warm Musculoskeletal: no muscle tenderness Neurologic: AAOx3 Psychiatric: interacting appropriately, not anxious ICD10 Worksheet Patient Problems: Problems Problem Status Onset Diabetic foot infection Acute
--- NOTE | 2016-11-15 16:32 | SOAPPROG ---
SOAP Progress Note Assessment/Plan: Assessment: 1. arf: atn from contrast in setting of infection, acei use. Now resolving with excellent uo. Unclear if proteinuria is chronic from underlying diabetic renal disease vs secondary process such as co-infectious gn. Ideally would cont to hold lisinopril until creat completely back to b/l but if bp difficult to control could resume. He should f/u with us in either our [place] or [place] offices, he has our contact info. 2. htn: cont to hold lisinopril for now as above. Would increase amlodipine, if difficult to control with this could resume lisinopril but suggest 2.5mg instead of 5. Will sign off, please call with questions. Plan: 11/15/16 16:29 Subjective: No particular c/o, feeling well. Objective: Vital Signs Temp Pulse Resp BP Pulse Ox 36.4 C 82 16 161/81 H 90 L 11/15/16 16:06 11/15/16 16:06 11/15/16 16:06 11/15/16 16:06 11/15/16 16:06 Laboratory Results 11/14/16 04:47 11/15/16 04:29 11/14/16 11/15/16 11/16/16 05:59 05:59 05:59 Intake Total 1350 800 450 Output Total 2075 600 600 Balance -725 200 -150 PT 12.7 SEC (12.0-15.0) 11/09/16 07:48 INR 0.96 (0.83-1.16) 11/09/16 07:48 Physical Exam - Physical Exam General Appearance: no apparent distress Respiratory: lungs clear Cardiac/Chest: regular rate, rhythm Extremities: pedal edema (none), other (L foot dressed) ICD10 Worksheet Patient Problems: Problems Problem Status Onset Diabetic foot infection Acute
[2016-11-15] MEDS: INSULIN GLARGINE 100 UNITS/ML SYRINGE SC SCH (21:51)
[2016-11-16 05:25] LABS: ALBUMIN 2.6 g/dL (3.5-5.0); ANION GAP 5 mEq/L (8-16); CALCIUM 8.3 mg/dL (8.5-10.4); CARBON DIOXIDE 28 mEq/l (22-31); CHLORIDE 104 mEq/L (97-110); CREATININE 1.5 mg/dL (0.7-1.3); GLOMERULAR FILTRATION RATE 49; GLUCOSE 199 mg/dL (70-100); POTASSIUM 4.4 mEq/L (3.5-5.2); SODIUM 137 mEq/L (134-144)
[2016-11-16] MEDS: PIPERACILLIN/TAZO 3.375 GM/DEX 50 ML IV SCH ×4 (05:47→23:51)
[2016-11-16] MEDS: INSULIN LISPRO 100 UNIT/ML SC SCH ×3 (08:38→17:35)
[2016-11-16] MEDS: hydrALAZINE 25 MG TAB PO SCH ×3 (08:38→23:48)
[2016-11-16] MEDS: ASPIRIN EC 81 MG TAB PO SCH (08:38)
[2016-11-16] MEDS: amLODIPine BESYLATE 5 MG TAB PO SCH (08:38)
--- NOTE | 2016-11-16 13:13 | HOSPPROG ---
Hospitalist Progress Note Assessment/Plan: Mr Katz is a 50-year-old Maltese-speaking male presenting with left diabetic foot infection/osteomyelitis status post amputation of left great toe and 4th toe. Met with the patient with the perfect binder setter. This is my first encounter, chart reviewed. D/W RN. 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 Hospitalist to be the primary. #Dispo: -pt hoping to go home soon -await abx recs Subjective: Up to the shower. C/O some pain when out of bed. No other issues. Eager to go home soon. Objective: Vital Signs Temp Pulse Resp BP Pulse Ox 37.1 C 83 14 142/77 H 95 11/16/16 11:48 11/16/16 11:48 11/16/16 11:48 11/16/16 11:48 11/16/16 11:48 Laboratory Results 11/14/16 04:47 11/16/16 04:42 11/15/16 11/16/16 11/17/16 05:59 05:59 05:59 Intake Total 800 450 350 Output Total 600 2200 420 Balance 200 -1750 -70 PT 12.7 SEC (12.0-15.0) 11/09/16 07:48 INR 0.96 (0.83-1.16) 11/09/16 07:48 - Physical Exam Constitutional: appears nourished, chronically ill appearing, uncomfortable Eyes: PERRL, anicteric sclera, EOMI Ears, Nose, Mouth, Throat: moist mucous membranes, hearing normal, ears appear normal Cardiovascular: regular rate and rhythym, No JVD, No edema Respiratory: no respiratory distress, no rales or rhonchi, clear to auscultation Gastrointestinal: No tenderness, No ascites, No guarding Skin: warm, normal color, erythema Musculoskeletal: full muscle strength, no joint effusions, pain with ROM Neurologic: AAOx3 Psychiatric: interacting appropriately, not anxious, not encephalopathic ICD10 Worksheet Patient Problems: Problems Problem Status Onset Diabetic foot infection Acute
[2016-11-16 14:34] LABS: PEUR A/G RATIO 1.14 %; PEUR ALBUMIN 53 %; PEUR ALPHA 1-GLOBULIN 9 %; PEUR ALPHA 2-GLOBULIN 10 %; PEUR BETA-GLOBULIN 11 %; PEUR GAMMA-GLOBULIN 17 %; PEUR IMPRESSION See Comments
--- NOTE | 2016-11-16 16:04 | SOAPPROG ---
SOJEAN Progress Note Assessment/Plan: Assessment: s/p amputation of metatarsal head and 4th toe and metatarsal head. Also with DM, HTN, CKD Final pathology pending Angiogram with runoff - calcification/stenosis of small distal vessels, no problems with macrovasculature Attempted to see patient but he was in the shower - will attempt to see later, if not tomorrow am Objective: Vital Signs Temp Pulse Resp BP Pulse Ox 36.6 C 81 14 162/83 H 95 11/16/16 15:36 11/16/16 15:36 11/16/16 15:36 11/16/16 15:36 11/16/16 15:36 Laboratory Results 11/14/16 04:47 11/16/16 04:42 11/15/16 11/16/16 11/17/16 05:59 05:59 05:59 Intake Total 800 450 350 Output Total 600 2200 420 Balance 200 -1750 -70 PT 12.7 SEC (12.0-15.0) 11/09/16 07:48 INR 0.96 (0.83-1.16) 11/09/16 07:48 ICD10 Worksheet Patient Problems: Problems Problem Status Onset Diabetic foot infection Acute
[2016-11-16] MEDS: oxyCODONE IR 5 MG TAB PO PRN (17:40)
[2016-11-16] MEDS: INSULIN GLARGINE 100 UNITS/ML SYRINGE SC SCH (21:23)
[2016-11-17] MEDS ORDERED: amLODIPine BESYLATE 5 MG TAB PO SCH
[2016-11-17 05:08] LABS: ALBUMIN 2.6 g/dL (3.5-5.0); CALCIUM 8.3 mg/dL (8.5-10.4); CARBON DIOXIDE 28 mEq/l (22-31); CHLORIDE 101 mEq/L (97-110); CREATININE 1.5 mg/dL (0.7-1.3); GLOMERULAR FILTRATION RATE 49; GLUCOSE 191 mg/dL (70-100); SODIUM 133 mEq/L (134-144)
[2016-11-17 05:26] LABS: ANION GAP 4 mEq/L (8-16); POTASSIUM 4.2 mEq/L (3.5-5.2)
[2016-11-17] MEDS: PIPERACILLIN/TAZO 3.375 GM/DEX 50 ML IV SCH (06:09)
[2016-11-17 07:39] VITALS: RESP 18
[2016-11-17] MEDS: INSULIN LISPRO 100 UNIT/ML SC SCH ×2 (08:44→12:18)
[2016-11-17] MEDS: ASPIRIN EC 81 MG TAB PO SCH (08:45)
[2016-11-17] MEDS: amLODIPine BESYLATE 5 MG TAB PO SCH (08:45)
[2016-11-17] MEDS: hydrALAZINE 25 MG TAB PO SCH ×2 (08:46→15:39)
--- NOTE | 2016-11-17 09:44 | PCMIDPN ---
Assessment/Plan: 1. Left diabetic foot infection/osteomyelitis status post amputation left great toe and 4th toe postop day 2: I spoke with Dr. Wilson of pathology; the patient's bony margins are clean without residual infection. Therefore, given no evidence of postoperative cellulitis will discontinue antibiotics. I explained all this to the patient today. He certainly will need to follow up with Dr. Maurer, and continue with ongoing wound care. No further follow-up with Infectious Disease necessary at this point in time. Subjective: Patient in good spirits. No complaints. Eager to go home. Objective: Afebrile Zosyn Vital Signs Temp Pulse Resp BP Pulse Ox 37.2 C 74 18 155/81 H 90 L 11/17/16 07:38 11/17/16 07:38 11/17/16 07:38 11/17/16 08:46 11/17/16 07:38 Laboratory Results 11/14/16 04:47 11/17/16 04:22 11/16/16 11/17/16 11/18/16 05:59 05:59 05:59 Intake Total 450 800 50 Output Total 2200 1670 Balance -1750 -870 50 ESR 86 MM/HR (0-20) H 11/09/16 07:48 C-Reactive Protein 25.2 mg/L (<10.0) H 11/09/16 07:48 Bony margins are clean per pathology - Physical Exam Skin: No rash ICD10 Worksheet Patient Problems: Problems Problem Status Onset Diabetic foot infection Acute
--- NOTE | 2016-11-17 10:52 | SOAPPROG ---
SOAP Progress Note Assessment/Plan: Assessment: s/p amputation of metatarsal head and 4th toe and metatarsal head DM HTN CKI Angiogram with runoff - calcified vessels distal PVR with flatter waveform over dorsum of foot. Otherwise good waveforms. Walker boot to fully off load - on at all times except when sleeping in bed Will continue to see while inpatient Sutures out in 2-3 weeks F/U with Dr. Maurer S: Feeling better O: Ecchymosis over foot, suture line cdi Plan: 11/15/16 07:01 11/17/16 10:50 Objective: Vital Signs Temp Pulse Resp BP Pulse Ox 37.2 C 74 18 155/81 H 90 L 11/17/16 07:38 11/17/16 07:38 11/17/16 07:38 11/17/16 08:46 11/17/16 07:38 Laboratory Results 11/14/16 04:47 11/17/16 04:22 11/16/16 11/17/16 11/18/16 05:59 05:59 05:59 Intake Total 450 800 50 Output Total 2200 1670 Balance -1750 -870 50 PT 12.7 SEC (12.0-15.0) 11/09/16 07:48 INR 0.96 (0.83-1.16) 11/09/16 07:48 ICD10 Worksheet Patient Problems: Problems Problem Status Onset Diabetic foot infection Acute
[2016-11-17 11:41] VITALS: BP 159/81; PULSE 78; TEMP 97.7; O2SAT 92
--- NOTE | 2016-11-17 15:25 | GDS ---
[f rep st] DISCHARGE SUMMARY DISCHARGE DIAGNOSES: 1. Uncontrolled diabetes mellitus with a hemoglobin A1c of 9.8. 2. Acute kidney injury. 3. Hypertension. 4. Left great toe and 4th toe osteomyelitis. CONSULTATIONS: 1. Infectious Disease. 2. Surgery. 3. Nephrology. PROCEDURES: Amputation of the left great toe and metatarsal head and 4th toe and metatarsal head. PHYSICAL EXAM: GENERAL: The patient is alert. VITAL SIGNS: Afebrile at 36.5. Pulse is 78. Resp iratory rate is 18. Blood pressure is 159/81. He is saturating 92% on room air. I have seen and e valuated the patient on the day of discharge. HOSPITAL COURSE: The patient is a 50-year-old Palauan-speaking male who presented to the emergency room with a left diabetic foot infection. He was evaluated and diagnosed with: 1. Uncontrolled diabetes mellitus. The patient's hemoglobin A1c was 9.8 at the time of this hospit alization. He has been initiated on Lantus and will continue this in the outpatient setting. Nahomy osborne diabetic education has been provided to the patient at the time of this hospitalization. He will continue on Lantus and blood glucose checks in the outpatient setting and may require sliding s georeg insulin in the future. 2. Acute kidney injury. The patient has been told to refrain from taking any NSAIDs, as well as hi s lisinopril has been discontinued. He did receive a consultation from Nephrology during this hospi maisha course and will follow with them outside the hospital. His renal function has stabilized and wi ll continue to be evaluated. 3. Hypertension. The patient is on Norvasc and has been provided a prescription for this at the ti me of disposition. His blood pressure is mildly elevated at the time of disposition but is secondar y to the patient's renal failure. He will likely need further antihypertensive medications added in the outpatient setting. 4. Left great toe and 4th toe osteomyelitis. Did have surgical intervention during this hospitaliz ation. It was noted that the bony margins are clear, and the patient does not require any further a ntibiotic therapy. He did receive renal-dosing Zosyn during this hospitalization. DISPOSITION: The patient will be discharged home independently. There are no pending studies. DISCHARGE MEDICATIONS: Please refer to EMR form. I have provided the patient a prescription for No rvasc, Lantus, OxyIR, syringes and lancets. He has received significant education prior to disposit ion. I have discussed the patient's discharge with Dr. Maurer as well as Dr. Mayo of Infectious Dis ease and case management. FOLLOWUP: Follow up will be with Dr. Maurer as well as Virginia Garcia at [facility]. I spent greater than 35 minutes in the care, coordination, and management of the patient's dispositi on. /[id number]/MODL
[2016-11-19] MEDS ORDERED: amLODIPine BESYLATE 5 MG TAB PO SCH (09:00)
== END 2016-11-17 16:32 | disposition home or self-care (01) | DRG 617 ==
LOC: F3E 11:17 → OBSVTOIN 11-10 13:00
PROVIDERS: ADMIT Surgery; ATTEND Internal Medicine
PROC: 0Y6Q0Z0 Detachment at Left 1st Toe, Complete, Open Approach (ICD-10-PCS; principal; 2016-11-09 13:15)
PROC: 0Y6W0Z0 Detachment at Left 4th Toe, Complete, Open Approach (ICD-10-PCS; principal; 2016-11-09 13:15)
DX: E11.69 Type 2 diabetes mellitus with other specified complication (principal); M86.9 Osteomyelitis, unspecified; N17.9 Acute kidney failure, unspecified; E11.22 Type 2 diabetes mellitus with diabetic chronic kidney disease; I12.9 Hypertensive chronic kidney disease with stage 1 through stage 4 chronic kidney disease, or unspecified chronic kidney disease; N18.2 Chronic kidney disease, stage 2 (mild)
CPT/HCPCS: 82947-QW; 83516-90; 83520-90; 84166-90; 86162-90; 86225-90; 86334-90; 96365; 97116-GP; 97161-GP; 97165-GO; 97530-GO; 97530-GP; 97535-GO; G0378; G0472; J0360; J1100; J1170; J1815; J2001; J2250; J2405; J2543; J2704; J3010; J3370; Q9967

== ENCOUNTER 2016-12-15 14:27 | Emergency (ER) | payer OTHER ==
--- NOTE | 2016-12-15 14:47 | EDPHY ---
H & P Time Seen by Provider: 12/15/16 14:46 HPI/ROS: CHIEF COMPLAINT: Constipation HISTORY OF PRESENT ILLNESS: This patient is a 50 year old diabetic male status 4 weeks post left toe amputation who presents to the Emergency Department complaining of constipation over the past four days. He reports that he has been taking oxycodone over the past week, "maybe longer," with his last reported bowel movement five days prior to arrival. He describes rectal discomfort worsened when sitting secondary to the sensation of stool in his rectum and mild diffuse abdominal pain. He denies nausea, vomiting, or any additional complaints. REVIEW OF SYSTEMS: Constitutional: No fever, no chills Eyes: No visual changes ENT: No sore throat Respiratory: No cough, no shortness of breath Cardiac: No chest pain Gastrointestinal: As in HPI Genitourinary: No hematuria, no dysuria Musculoskeletal: No leg pain or swelling Skin: No rash Neurological: No headache, no numbness, no weakness Psychiatric: No depression Past Medical/Surgical History: Diabetes, hypertension, left great toe amputation 11/2016 Social History: and son at bedside, Czech-speaking only Smoking Status: Never smoked Physical Exam: General Appearance: Alert, no distress Eyes: Pupils equal and round, no conjunctival pallor or injection ENT, Mouth: Mucous membranes moist Neck: Normal inspection Respiratory: Lungs are clear to auscultation Cardiovascular: Regular rate and rhythm Gastrointestinal: Abdomen is soft and non-tender Rectal: Hard brown stool Neurological: A&O, nonfocal, normal gait Skin: Warm and dry, no rash Extremities: Nontender, no pedal edema Psychiatric: Mood and affect normal Constitutional: Initial Vital Signs Temperature (C) 36.4 C 12/15/16 14:41 Heart Rate 98 12/15/16 14:41 Respiratory Rate 16 12/15/16 14:41 Blood Pressure 116/73 12/15/16 14:41 O2 Sat (%) 100 12/15/16 14:41 O2 Delivery Mode Room Air Allergies/Adverse Reactions: No Known Allergies Allergy (Verified 11/09/16 07:06) Home Medications: Medication Instructions Recorded Aspirin EC [Aspirin EC 81 mg (*)] 81 mg PO DAILY 09/29/16 glipiZIDE [Glucotrol] 10 mg PO DAILY 09/29/16 metFORMIN HCL [Glucophage 500 mg 1,000 mg PO BIDMEAL 11/09/16 (*)] Insulin Glargine [Lantus 100 20 units SC HS #1 vial 11/17/16 UNITS/ML (*)] Lancets/Blood Glucose Strips [Fora 1 each MC BID #60 combo..pkg 11/17/16 [id number] Strp-Lnct] Syringe [Syringe, Insulin] 1 syr SQ DAILY #30 ea 11/17/16 amLODIPine BESYLATE [Norvasc 5 mg 5 mg PO DAILY #30 tab 11/17/16 (*)] oxyCODONE IR [Oxycodone Ir (*)] 5 - 10 mg PO Q4 PRN #14 tab 11/17/16 Medical Decision Making Procedures: Procedure: Manual disimpaction performed by myself with effective elimination of moderate amount of hard brown stool. The patient tolerated the procedure well. ED Course/Re-evaluation: 50-year-old diabetic male status four weeks post toe amputation on oxycodone who presents with fecal impaction for the past four days. He complains of associated rectal and abdominal pain. His exam is benign; his abdomen is soft and non-tender. Disimpaction performed manually by myself with mild improvement to the patient's symptoms. Will proceed with administration of soap suds enema and 300ml magnesium citrate. 1617: On reevaluation, the patient is feeling much better. He was able to successfully pass a large bowel movement here in the ED. I discussed with him appropriate at-home care for constipation. He expresses understanding of this. He will be discharged home in good condition with referral to [facility] for follow-up. Differential Diagnosis: The differential diagnosis for the patient's constipation included but was not limited to medication side effect, bowel obstruction, irritable bowel syndrome, or idiopathic slow transit constipation. - Data Points Medications Given: Discontinued Medications Magnesium Citrate (Magnesium Citrate) 300 ml PO EDNOW ONE Stop: 12/15/16 15:00 Last Admin: 12/15/16 15:40 Dose: 300 ml Departure - Departure Disposition: Home, Routine, Self-Care Clinical Impression: Fecal impaction Constipation Qualifiers: Constipation type: drug induced constipation Qualified Code(s): K59.03 - Drug induced constipation Condition: Good Instructions: Constipation (ED) Additional Instructions: 1. Take [id number] Dulcolax bardales directed to help relieve your constipation. 2. Follow-up with your primary care provider if you continue to have constipation over the next 3-5 days. 3. Return to the Emergency Department if you are unable to pass a bowel movement in over one week, have severe abdominal pain, or for other serious concerns. Referrals: [facility],. [Clinic] - As per Instructions Print Language: Czech Report Scribed for: Renee Lara Report Scribed by: Mayte Dodd Date of Report: 12/15/16 Time of Report: 14:47 Physician Review and Approval Statement: 12/15/16 14:47 Portions of this note were transcribed by a medical delivery technician. I personally performed a history, physical exam, medical decision making, and confirmed accuracy of information the transcribed note.
[2016-12-15] MEDS ORDERED: MAGNESIUM CITRATE 300 ML BOTTLE PO ONE (14:59)
[2016-12-15 16:49] VITALS: BP 120/90; PULSE 88; RESP 18; TEMP 97.9; O2SAT 95
== END 2016-12-15 16:45 | disposition home or self-care (01) ==
DX: K59.03 Drug induced constipation (principal); T40.2X5A Adverse effect of other opioids, initial encounter; E11.9 Type 2 diabetes mellitus without complications; I10 Essential (primary) hypertension; Z79.4 Long term (current) use of insulin; Z79.82 Long term (current) use of aspirin; Z79.84 Long term (current) use of oral hypoglycemic drugs

== ENCOUNTER 2016-12-27 06:57 | Inpatient (IN) | payer MEDICAID ==
--- NOTE | 2016-12-27 07:09 | EDPHY ---
H & P Time Seen by Provider: 12/27/16 07:08 HPI/ROS: CHIEF COMPLAINT: Left foot pain HISTORY OF PRESENT ILLNESS: Patient was discharged on November 17 after having had surgical intervention and antibiotics for left great toe and 4th toe osteomyelitis. He has been seeing his surgeon Dr. Halei Maurer later this last week but continues to have increasing pain. Today he has pain in the entire forefoot of the left foot. He has describes it as severe and associated with an episode of vomiting today. No fevers and does not radiate to the calf or knee. Not associated with new trauma or change in wound appearance. According to chart note by Dr. Mayo on the day of discharge the wound margins were clean and so no need for any further antibiotics. REVIEW OF SYSTEMS: Eye: no change in vision ENT: no sore throat Cardiac: no chest pain or syncope Pulmonary: no cough or SOB Abdomen: No diarrhea or abdominal pain Musculoskeletal: no back pain Skin: Open granulating wounds on the left foot where left 4th toe and great toe were amputated. Neuro: no headache Constitutional: no fever : no urinary symptoms A comprehensive 10 point review of systems is otherwise negative aside from elements mentioned in the history of present illness. PAST MEDICAL HISTORY: Discharge summary dated 11/17/2016 personally reviewed includes hypertension and diabetes, left foot osteomyelitis. Chronic kidney disease. Social history: Here with family, nonsmoker. General Appearance: Alert and conversant, cooperative. Eyes: No scleral icterus. ENT, Mouth: Normal mucous membranes. Respiratory: Normal respiratory effort, breath sounds equal, lungs are clear to auscultation. Cardiovascular: Regular rate and rhythm. Gastrointestinal: Abdomen is soft and non tender. Neurological: Alert and oriented x3. Normally conversant. Decreased sensation in the left foot which is chronic, from his diabetes. Skin: Patient has some slight redness to the left distal forefoot but no increase in temperature. He has open wounds with granulation tissue and a dressing attached at the site of the left 4th and great toe amputations. No crepitus, no blisters, no fluctuance, no eschar. No lymphangitis. Musculoskeletal: Trace left foot peripheral edema, amputations as noted above. Psychiatric: Not agitated. Emergency Department course/MDM: Plan for a CBC, sed rate and CRP, MRI of the foot to evaluate for osteomyelitis. Pain control and antiemetics. 1040: MRI per Dr. Hummel shows osteomyelitis in the shaft both the 1st and 4th metatarsal as well as the cellulitis and myositis. Discussed with the patient at this time, will admit for IV antibiotics, infectious disease and surgical consultation. 1049: Discussed with Mehran for Delvin CASTRO recommended. 1050: Discussed with Becky for Dr. Cruz. 1054: Selch for Erasto, will consult. Smoking Status: Never smoked Constitutional: Initial Vital Signs Temperature (C) 36.5 C 12/27/16 07:03 Heart Rate 83 12/27/16 07:03 Respiratory Rate 16 12/27/16 07:03 Blood Pressure 182/95 H 12/27/16 07:03 O2 Sat (%) 97 12/27/16 07:03 O2 Delivery Mode Room Air Allergies/Adverse Reactions: No Known Allergies Allergy (Verified 12/27/16 07:01) Home Medications: Medication Instructions Recorded Aspirin EC [Aspirin EC 81 mg (*)] 81 mg PO DAILY 09/29/16 glipiZIDE [Glucotrol] 10 mg PO DAILY 09/29/16 metFORMIN HCL [Glucophage 500 mg 1,000 mg PO BIDMEAL 11/09/16 (*)] Insulin Glargine [Lantus 100 20 units SC HS #1 vial 11/17/16 UNITS/ML (*)] Lancets/Blood Glucose Strips [Fora 1 each MC BID #60 combo..pkg 11/17/16 [id number] Strp-Lnct] Syringe [Syringe, Insulin] 1 syr SQ DAILY #30 ea 11/17/16 amLODIPine BESYLATE [Norvasc 5 mg 5 mg PO DAILY #30 tab 11/17/16 (*)] oxyCODONE IR [Oxycodone Ir (*)] 5 - 10 mg PO Q4 PRN #14 tab 11/17/16 MDM/Departure - MDM Imaging Results: Imaging Impressions Lower Extremity MRI 12/27/16 07:20 Impression: 1. Findings suspicious for osteomyelitis involving the remaining shaft of the first metatarsal as well as distal head of the fourth metatarsal at the amputation sites with some edema possibly representing osteomyelitis also involving the distal head of the third metatarsal and third toe proximal phalanx. 2. Edema of the musculature around the metatarsals compatible with myositis as well as some mild associated cellulitis. 3. No evidence of abscess. Findings discussed with Kevin Foster M.D. at 10:49 hour, 12/27/2016. Cosigned Dr. Ricki Gu Medications Given: Discontinued Medications Amlodipine Besylate (Norvasc) 5 mg PO EDNOW ONE Stop: 12/27/16 10:04 Last Admin: 12/27/16 10:12 Dose: 5 mg Sodium Chloride (Ns) 1,000 mls @ 0 mls/hr IV ONCE ONE PRN Reason: Wide Open Stop: 12/27/16 07:20 Last Admin: 12/27/16 07:45 Dose: 1,000 mls Piperacillin/Tazobactam/Dextrose (Zosyn (Premix)) 100 mls @ 200 mls/hr IV EDNOW ONE PRN Reason: Protocol Stop: 12/27/16 11:20 Last Admin: 12/27/16 11:12 Dose: 100 mls Metformin HCl (Glucophage) 1,000 mg PO ONCE ONE Stop: 12/27/16 11:24 Last Admin: 12/27/16 11:52 Dose: 1,000 mg Ondansetron HCl (Zofran) 4 mg IVP EDNOW ONE Stop: 12/27/16 07:20 Last Admin: 12/27/16 07:29 Dose: Not Given Ondansetron HCl (Zofran Odt) 4 mg PO EDNOW ONE Stop: 12/27/16 07:30 Last Admin: 12/27/16 07:29 Dose: 4 mg Oxycodone HCl (Oxycodone Ir) 5 mg PO EDNOW ONE Stop: 12/27/16 07:20 Last Admin: 12/27/16 07:45 Dose: 5 mg Oxycodone HCl (Oxycodone Ir) 5 mg PO EDNOW ONE Stop: 12/27/16 10:04 Last Admin: 12/27/16 10:12 Dose: 5 mg ED Course/Re-evaluation: Database includes white blood cell count 8.9, sedimentation rate 98, glucose 188 , normal electrolytes, CRP 35.6, creatinine 1.3. MRI as previously documented Differential Diagnosis: Differential considered including but not limited to fracture, cellulitis, abscess, osteomyelitis - Depart Disposition: [facility] Clinical Impression: Diabetic foot infection Osteomyelitis of left foot Qualifiers: Osteomyelitis type: unspecified type Qualified Code(s): M86.9 - Osteomyelitis, unspecified Condition: Good
[2016-12-27] MEDS ORDERED: ONDANSETRON 4 MG/2 ML VIAL IVP ONE (07:19)
[2016-12-27] MEDS ORDERED: NS 1,000 ML IV ONE (07:19)
[2016-12-27] MEDS ORDERED: oxyCODONE IR 5 MG TAB PO ONE ×2 (07:19→10:03)
[2016-12-27] MEDS ORDERED: ONDANSETRON DISINTEGRATING 4 MG TAB ONE (07:22)
[2016-12-27] MEDS ORDERED: ONDANSETRON DISINTEGRATING 4 MG TAB PO ONE (07:29)
[2016-12-27 07:49] LABS: % IMMATURE GRANULYOCYTES 0.4 % (0.0-1.1); ABSOLUTE IMMATURE GRANULOCYTES 0.04 10^3/uL (0.00-0.10); ADD DIFF? NO; ADD MORPH? NO; ADD SCAN? NO; ATYPICAL LYMPHOCYTE FLAG 0 (0-99); FRAGMENT RBC FLAG 0 (0-99); HEMATOCRIT 37.1 % (40.0-51.0); HEMOGLOBIN 12.4 g/dL (13.7-17.5); LEFT SHIFT FLG 0 (0-99); LIPEMIA HEMOLYSIS FLAG 80 (0-99); MEAN CELL HEMOGLOBIN CONCENTR. 33.4 g/dL (32.4-36.7); MEAN CELL VOLUME 86.9 fL (81.5-99.8); MEAN PLATELET VOLUME 8.8 fL (8.7-11.7); PLATELET CLUMPS FLAG 20 (0-99); PLATELET COUNT 478 10^3/uL (150-400); RED BLOOD CELL COUNT 4.27 10^6/uL (4.40-6.38); RED CELL DISTRIBUTION WIDTH 12.7 % (11.5-15.2)
[2016-12-27 08:09] LABS: SEDIMENTATION RATE 98 MM/HR (0-20)
[2016-12-27 08:11] LABS: ANION GAP 9 mEq/L (8-16); C-REACTIVE PROTEIN 35.6 mg/L (<10.0); CALCIUM 9.3 mg/dL (8.5-10.4); CARBON DIOXIDE 26 mEq/l (22-31); CHLORIDE 105 mEq/L (97-110); CREATININE 1.3 mg/dL (0.7-1.3); GLOMERULAR FILTRATION RATE 58; GLUCOSE 188 mg/dL (70-100); POTASSIUM 4.9 mEq/L (3.5-5.2); SODIUM 140 mEq/L (134-144)
[2016-12-27] MEDS ORDERED: amLODIPine BESYLATE 5 MG TAB PO ONE (10:03)
[2016-12-27] MEDS ORDERED: PIPERACILLIN/TAZO 4.5 GM/DEX 100 ML IV ONE (10:51)
[2016-12-27] MEDS ORDERED: metFORMIN HCL 500 MG TAB PO ONE (11:23)
[2016-12-27] MEDS ORDERED: ONDANSETRON 4 MG/2 ML VIAL IVP PRN (12:51)
[2016-12-27] MEDS ORDERED: ZOLPIDEM TARTRATE 5 MG TAB PO PRN (12:51)
[2016-12-27] MEDS: ACETAMINOPHEN 325 MG TAB PO PRN (14:42)
--- NOTE | 2016-12-27 14:46 | GCON ---
[f rep st] CONSULTATION DATE OF CONSULTATION: 12/27/2016 CHIEF COMPLAINT: Left foot osteomyelitis. HISTORY OF PRESENT ILLNESS: The patient is a 50-year-old man who is well known to our service for a history of left foot osteomyelitis. He underwent left great toe and left 4th toe amputations for infected diabetic foot ulcers with osteomyelitis. He was seen in our office regularly for wound care over the past several weeks. His postop course was complicated by delayed wound healing and wound dehiscence secondary to poor blood supply. He had a CTA performed on the previous hospital admission on 11/10/2016 which showed intact major arterial inflow bilaterally with small-vessel arterial stenosis and occlusion in the calves and feet. He had RANJAN PVRs which showed very poor waveforms in the forefoot. Over these past several weeks, he has had worsening pain, drainage and odor from the wounds. He presented to the emergency room this morning complaining of worsening pain and nausea. He had an MRI which showed findings suspicious for osteomyelitis of the 1st metatarsal shaft, as well as the distal 4th metatarsal. He was admitted for surgical intervention, pain control, and observation. PAST MEDICAL HISTORY: Diabetes, hypertension, chronic kidney disease. PAST SURGICAL HISTORY: Amputations as above. SOCIAL HISTORY: He denies tobacco, alcohol, or recreational drug use. ALLERGIES: No known drug allergies. REVIEW OF SYSTEMS: He reports nausea and pain. Otherwise, 10-point review of systems negative aside from HPI. PHYSICAL EXAMINATION: GENERAL: Well-developed, well-nourished man in no acute distress, accompanied by family member. HEENT: Normocephalic, atraumatic. No hearing deficits. Pupils equal and round. No scleral icterus. Mucous membranes moist. NECK: Trachea midline. RESPIRATORY: Clear to auscultation bilaterally. No increased work of breathing. CARDIOVASCULAR: Unable to palpate left lower extremity peripheral pulses. No peripheral edema. Regular rate and rhythm. SKIN: The left lower extremity wounds have dressings intact. I did see a picture, however, which showed slough in the base of both wounds. No surrounding erythema. PSYCH: Mood and affect normal. NEUROLOGIC: Grossly intact. IMPRESSION AND PLAN: The patient is a 50-year-old man, now with osteomyelitis of the left foot. He will require transmetatarsal amputation. We discussed that, given his poor blood supply, we hope that this wound heals; otherwise, he would require below-knee amputation. We discussed risks of surgery including, but not limited to, heart attack, stroke, blood clots or . We discussed infection, bleeding, continued delayed wound healing, or need for additional procedures. He understands the risks and would like to proceed. He is scheduled for surgery at 7:15 tomorrow morning. He will be n.p.o. after midnight. He is receiving therapeutic antibiotics. His comorbidities are being managed by hospitalist. He was additionally seen by Dr. Halie Maurer, who agrees with the above impression and plan. /[id number]/MODL MTDD
--- NOTE | 2016-12-27 18:07 | PDGENHP ---
History and Physical History and Physical: HISTORY AND PHYSICAL CC: Left foot pain HISTORY: This patient with diabetes and peripheral vascular disease has a previous history of diabetic foot infection with osteomyelitis of toes 1 and 4 and resection of those toes. He has had ongoing wound healing issues from that surgery with open wounds at both locations. He has had just recently increasing pain in the foot. He comes in today for this reason and on MRI scanning is found have metatarsal osteomyelitis distally in bones 1 and 4. There is no abscess. He has not been having chills or sweats. He is being admitted at this time for transmetatarsal amputation of the foot. His MRI is showing circulation into the proximal foot that should be sufficient for healing. ROS: A comprehensive 10 system review revealed no other significant findings PAST MEDICAL HISTORY: Diabetes mellitus type 2 Peripheral vascular disease Diabetic foot infection with osteomyelitis and toe amputations Hypertension FAMILY MEDICAL HISTORY: Diabetes SOCIAL HISTORY: MEDICATIONS: The patients list has been reconciled by our clinical pharmacist in the EMR. I have reviewed the list and ordered appropriate medicines. PHYSICAL EXAMINATION: Vital Signs: Stable without fever I examined the patient's foot today with Dr. Maurer Examination: General: alert, oriented, good mentation, relaxed Skin: warm, dry, good color, no rash HEENT: normal Neck: no mass or jvd Resps: relaxed Lungs: clear breath sounds Heart: regular, no murmur Abdomen: soft, nondistended, nontender, +BS, no mass Lower Extremities: His left foot has open wounds where he had his previous 1st and 4th toe amputations. Both of these wounds have some mild black and tissue around the wound edge with some mildly apparent exudate in the bases. There is not really much in the way of cellulitis of the foot and I do not feel an abscess. The soft tissue has good temperature and color otherwise. 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 This will need to be followed and managed closely here in hospital -DVT risk PLANS: -elevation of the foot -per consultation with Dr. Laurent of Infectious Disease Zosyn was started in the emergency room, will continue this for now pending full ID consult -plans for surgery tomorrow morning with Dr. Maurer I have reviewed the patient's case in detail with Dr. Halie Maurer I have reviewed the patient's past medical records as part of this assessment, including previous hospital admission records
[2016-12-27] MEDS ORDERED: ONDANSETRON DISINTEGRATING 4 MG TAB PO PRN (19:53)
[2016-12-27] MEDS: HYDROCODONE/APAP 5/325 TAB PO PRN (20:07)
[2016-12-27] MEDS: CYCLOBENZAPRINE 10 MG TAB PO SCH (21:03)
[2016-12-27] MEDS: traMADol 50 MG TAB PO PRN ×2 (21:03→22:06)
[2016-12-27] MEDS: GABAPENTIN 300 MG CAP PO SCH (21:03)
[2016-12-27] MEDS: INSULIN GLARGINE 100 UNITS/ML SYRINGE SC SCH (21:04)
[2016-12-27] MEDS: PIPERACILLIN/TAZO 3.375 GM/DEX 50 ML IV SCH (21:06)
[2016-12-28] MEDS: HYDROCODONE/APAP 5/325 TAB PO PRN ×3 (00:02→21:39)
[2016-12-28 05:20] LABS: % IMMATURE GRANULYOCYTES 0.2 % (0.0-1.1); ABSOLUTE IMMATURE GRANULOCYTES 0.02 10^3/uL (0.00-0.10); ADD DIFF? NO; ADD MORPH? NO; ADD SCAN? NO; ATYPICAL LYMPHOCYTE FLAG 0 (0-99); FRAGMENT RBC FLAG 0 (0-99); HEMATOCRIT 30.8 % (40.0-51.0); HEMOGLOBIN 10.2 g/dL (13.7-17.5); LEFT SHIFT FLG 0 (0-99); LIPEMIA HEMOLYSIS FLAG 80 (0-99); MEAN CELL HEMOGLOBIN CONCENTR. 33.1 g/dL (32.4-36.7); MEAN CELL VOLUME 87.5 fL (81.5-99.8); MEAN PLATELET VOLUME 8.6 fL (8.7-11.7); PLATELET CLUMPS FLAG 0 (0-99); PLATELET COUNT 352 10^3/uL (150-400); RED BLOOD CELL COUNT 3.52 10^6/uL (4.40-6.38); RED CELL DISTRIBUTION WIDTH 12.6 % (11.5-15.2)
[2016-12-28] MEDS: PIPERACILLIN/TAZO 3.375 GM/DEX 50 ML IV SCH ×3 (05:29→20:27)
[2016-12-28 05:42] LABS: ANION GAP 6 mEq/L (8-16); CALCIUM 8.4 mg/dL (8.5-10.4); CARBON DIOXIDE 26 mEq/l (22-31); CHLORIDE 108 mEq/L (97-110); CREATININE 1.4 mg/dL (0.7-1.3); GLOMERULAR FILTRATION RATE 53; GLUCOSE 125 mg/dL (70-100); POTASSIUM 4.6 mEq/L (3.5-5.2); SODIUM 140 mEq/L (134-144)
[2016-12-28] MEDS ORDERED: BUPIVACAINE 0.5% 30 ML SDV ONE (06:50)
[2016-12-28] MEDS ORDERED: MIDAZOLAM 2 MG/2 ML VIAL ONE (07:14)
[2016-12-28] MEDS ORDERED: METOCLOPRAMIDE 10 MG/2 ML VIAL ONE (07:16)
[2016-12-28] MEDS ORDERED: LIDOCAINE 2% 5 ML SDV ONE (07:16)
[2016-12-28] MEDS ORDERED: PROPOFOL 200 MG/20 ML VIAL ONE (07:17)
[2016-12-28] MEDS ORDERED: fentaNYL 100 MCG/2 ML INJ ONE ×2 (07:17→08:54)
[2016-12-28] MEDS ORDERED: LIDOCAINE 2% JELLY 5 ML TUBE ONE (07:20)
[2016-12-28] MEDS ORDERED: PHENYLEPHRINE HCL 100 MCG/ML SYR ONE (07:35)
[2016-12-28] MEDS ORDERED: ONDANSETRON 4 MG/2 ML VIAL ONE (08:20)
--- NOTE | 2016-12-28 08:31 | POSTOPPROG ---
Post Op Note Date of Operation: 12/28/16 Surgeon: Halie Maurer Rn Neonatal: liz barcenas Anesthesiologist: vijay martinez Anesthesia: GET(General Endotracheal) Pre-op Diagnosis: osteomylitis l foot Post-op Diagnosis: same Indication: 50 yo with osteomylitis, non healing wound Procedure: L transmetatarsal amputation Findings: digital vessels patent Inf/Abcess present in the surg proc area at time of surgery?: Yes Depth: Deep Incisional (Fascial) EBL: 50-100 Drains: Wound Vac Specimen(s): l transmetatarsal micro and path
[2016-12-28] MEDS ORDERED: ATORVASTATIN CALCIUM 40 MG TAB PO SCH (09:00)
[2016-12-28] MEDS ORDERED: LISINOPRIL 10 MG TAB PO SCH (09:00)
[2016-12-28] MEDS ORDERED: glipiZIDE 5 MG TAB PO SCH (09:00)
--- NOTE | 2016-12-28 09:08 | GOP ---
[f rep st] OPERATIVE REPORT DATE OF OPERATION: 12/28/2016 SURGEON: Halie Maurer MD ADHESIVE SPRAYER: KENNA Rodrigues. ANESTHESIA: General. ANESTHESIOLOGIST: Davin Nixon MD PREOPERATIVE DIAGNOSIS: Osteomyelitis, left foot. POSTOPERATIVE DIAGNOSIS: Osteomyelitis, left foot. PROCEDURE PERFORMED: Left transmetatarsal amputation with application of incisional wound VAC. FINDINGS: Chronic infected wound. The bone appeared healthy at the amputation site. Digital arteries were patent. SPECIMENS: Forefoot for pathology, bone for microbiology. ESTIMATED BLOOD LOSS: 50 cc. INDICATIONS:The patient is has diabetes mellitus. He has osteomylitis of his foot. He has poor waveforms at the forefoot but has runnoff. DESCRIPTION OF PROCEDURE: The patient was brought into the operating room, placed supine on the table, and general anesthesia was administered. His left foot was prepped and draped in the usual sterile fashion. I marked my flap prior to making incision. I covered the forefoot with Ioband to cover the infected areas. I used a knife to incise the skin. The digital arteries were patent. I continued my dissection with electrocautery until I encountered bone. I used a periosteal elevator to elevate the soft tissues away from the bone. I then used a microsagittal saw to transect the forefoot. I selected a piece of proximal bone for microbiology. I sent the forefoot for pathology. Hemostasis was achieved with electrocautery. The tendons were cut sharply. I then was able to create a muscle flap over the bone and sutured this into place with 2-0 Vicryl. Next, I approximated the skin flap with 2-0 nylon trimming the excess flap of skin. Once the wound was closed, I then placed an incisional wound VAC with Adaptic Touch directly over the sutures and then the wound VAC set to 75 mmHg. He was then placed in a Cam boot. He tolerated the procedure well. He was awakened in the operating room, extubated, transferred to PACU in stable condition. /[id number]/MODL MTDD
--- NOTE | 2016-12-28 10:55 | PCMIDPN ---
Assessment/Plan: #Left osteomyelitis at the distal metatarsals 1 and 4 s/p transmet this AM. No cellulitis on exam. Prior cultures showing serratia and enterococcus --likely had complete revision of infection with trans met --OR data to make final recs on duration of antibiotic therapy --empiric coverage with zosyn, patient with recent antibiotic exposure therefore may be at risk for more resistant organisms + will cover prior isolates. # Renal insufficiency: CrCl 66, no dose adjustments for standard dose zosyn needed. Increase to [id number] Meds zosyn 3.375gm IV q8h #1 Subjective: 50 yo male known to ID service for management of Left diabetic foot infection/ osteomyelitis status post amputation left great toe and 4th toe with serratia and enterococcus developed non healing wound and is admitted for definitive therapy with transmetatarsal amputation L foot, in fact I am seeing him post op today. Reports pain L foot post operatively, but is doing well. No N/V/D Patient history and exam obtained w assistance of food service clerk Objective: Vital Signs Temp Pulse Resp BP Pulse Ox 37.0 C 86 14 140/75 H 97 12/28/16 10:09 12/28/16 10:09 12/28/16 10:09 12/28/16 10:09 12/28/16 10:09 Laboratory Results 12/28/16 05:11 12/28/16 05:11 12/27/16 12/28/16 12/29/16 05:59 05:59 05:59 Intake Total 1244 1500 Output Total 320 Balance 1244 1180 ESR 98 MM/HR (0-20) H 12/27/16 07:40 C-Reactive Protein 35.6 mg/L (<10.0) H 12/27/16 07:40 - Physical Exam General Appearance: alert, no apparent distress EENT: No thrush Respiratory: lungs clear Neck: supple Cardiac/Chest: regular rate, rhythm Extremities: other (L trans-met w wound vac in place. No erythema or warmth, mild expected tenderness) Abdomen: non-tender, soft Male Genitalia: No monroe Neuro/Psych: alert, normal mood/affect ICD10 Worksheet Patient Problems: Problems Problem Status Onset Diabetic foot infection Acute Osteomyelitis of left foot Acute
[2016-12-28] MEDS: INSULIN GLARGINE 100 UNITS/ML SYRINGE SC SCH ×2 (11:20→21:46)
[2016-12-28] MEDS ORDERED: glipiZIDE 10 MG TAB PO ONE (11:23)
[2016-12-28] MEDS: GABAPENTIN 300 MG CAP PO SCH ×3 (11:24→21:40)
[2016-12-28] MEDS: ASPIRIN EC 81 MG TAB PO SCH (11:24)
[2016-12-28] MEDS: metFORMIN HCL 500 MG TAB PO SCH ×2 (11:28→19:21)
--- NOTE | 2016-12-28 14:10 | HOSPPROG ---
Hospitalist Progress Note Assessment/Plan: 50y male with foot pain. This is my first encounter. D/W Dr Cruz. #Left osteomyelitis at the distal metatarsals 1 and 4 s/p transmet this AM. appreciate surgery and ID wound vac #diabetes mellitus with mildly elevated glucose SSI, aggressive control #CRI stable avoid nephrotoxic agents last hospital course renal function very elevated watch close #DVT proph heparin when ok with surgery PLANS: -elevation of the foot -labs in am Subjective: Tired after surgery. Pain controlled. Objective: Vital Signs Temp Pulse Resp BP Pulse Ox 36.3 C 86 18 126/73 H 96 12/28/16 13:12 12/28/16 13:12 12/28/16 13:12 12/28/16 13:12 12/28/16 13:12 Microbiology 12/28/16 07:55 Gram Stain - Final Foot - Bone Laboratory Results 12/28/16 05:11 12/28/16 05:11 12/27/16 12/28/16 12/29/16 05:59 05:59 05:59 Intake Total 1244 1500 Output Total 320 Balance 1244 1180 - Physical Exam Constitutional: no apparent distress, appears nourished, not in pain Eyes: PERRL, anicteric sclera, EOMI Ears, Nose, Mouth, Throat: moist mucous membranes, hearing normal, ears appear normal Cardiovascular: No JVD, No tachycardia, No edema Respiratory: no respiratory distress, no rales or rhonchi, reduced air movement Gastrointestinal: No tenderness, No ascites, No guarding Skin: warm, normal color, No mottled Musculoskeletal: no joint effusions, pain with ROM, generalized weakness Neurologic: AAOx3 Psychiatric: interacting appropriately, not anxious, not encephalopathic, thought process linear ICD10 Worksheet Patient Problems: Problems Problem Status Onset Diabetic foot infection Acute Osteomyelitis of left foot Acute
[2016-12-28] MEDS ORDERED: PIPERACILLIN/TAZO 3.375 GM/DEX 50 ML IV SCH (17:30)
[2016-12-28] MEDS: CYCLOBENZAPRINE 10 MG TAB PO SCH (20:27)
[2016-12-28] MEDS: traMADol 50 MG TAB PO PRN (22:58)
[2016-12-28] MEDS: NS 1,000 ML IV SCH (23:54)
[2016-12-29] MEDS ORDERED: NS 1,000 ML IV ONE ×2 (00:16→01:14)
[2016-12-29] MEDS: D50W 25 GM/50 ML SYR IVP PRN ×4 (00:23→21:16)
[2016-12-29 01:40] LABS: HEMOGLOBIN 9.7 g/dL (13.7-17.5); MEAN CELL HEMOGLOBIN 29.6 pg (27.9-34.1); MEAN CELL HEMOGLOBIN CONCENTR. 33.4 g/dL (32.4-36.7); MEAN CELL VOLUME 88.4 fL (81.5-99.8); RED BLOOD CELL COUNT 3.28 10^6/uL (4.40-6.38); RED CELL DISTRIBUTION WIDTH 12.8 % (11.5-15.2)
[2016-12-29 02:10] LABS: ANION GAP 9 mEq/L (8-16); CALCIUM 7.7 mg/dL (8.5-10.4); CARBON DIOXIDE 23 mEq/l (22-31); CHLORIDE 102 mEq/L (97-110); CREATININE 2.6 mg/dL (0.7-1.3); GLOMERULAR FILTRATION RATE 26; GLUCOSE 116 mg/dL (70-100); POTASSIUM 4.5 mEq/L (3.5-5.2); SODIUM 134 mEq/L (134-144)
[2016-12-29] MEDS: NS 1,000 ML IV SCH (02:19)
[2016-12-29] MEDS: PIPERACILLIN/TAZO 3.375 GM/DEX 50 ML IV SCH ×2 (02:19→10:02)
[2016-12-29 05:51] LABS: COLOR YELLOW; LEUKOCYTE ESTERASE,URINE NEGATIVE (NEGATIVE); NITRITE,URINE NEGATIVE (NEGATIVE)
[2016-12-29 05:57] LABS: AMORPHOUS PRESENT /hpf (NONE-1+)
--- NOTE | 2016-12-29 06:42 | HOSPPROG ---
Hospitalist Progress Note Assessment/Plan: CROSS COVER EVENT NOTE I was called by RN to evaluate patient for hypotension at approximate 1230am. Per RN, since patient's return to the floor from OR/PACU, patient's BP was steadily declining. By my arrival, BP was in the 80/40 range. Patient appeared lethargic, but was arousable and complained of dizziness. He was also profusely diaphoretic, with subsequent FS check reading 60. On exam: VS: BP 82/53, HR 86 O2 Sat 95% on 2L Gen: obese, diaphoretic, not in pain CV: RRR, no obvious murmur Resp: CTA, no rhonchi or wheezing Abd: soft, nontender, nondistended Ext: L foot TMA with wound vac in place draining minimal serosanguineous fluid Neuro: AO x 3, lethargic, but arousable, answering questions appropriately; no focal deficits Labs: FS: 60 Impr/Plan: Patient is 51/M with Dm2, PVD, who was admitted to [facility] on 12/27 for osteomyelitis of L foot, underwent L TMA on 12/28. Several hours post-op, patient developed acute hypotension. Differential includes sepsis, hypovolemia from NPO status previous day or effect lingering anesthesia meds. Patient was given 1 amp D50 IVP for the hypoglycemia and 2 L NS IV bolus, with improvement in BP. Labs, including lactic acid, blood cultures and cbc, bmp were drawn. Lactic acid was normal, however, BMP showed an increase in creatinine. Bladder scan performed at that time then revealed > 1 L urinary retention. # hypotension BP improved back to near baseline after 2 L NS fluid bolus. AM labs do reveal new leukocytosis, although lactic acid is normal. Will check UA and CXR to r/o other sources of infection. Blood cultures drawn this AM; will cont current antibiotics, f/u blood and wound cultures, as well as ID input. # acute urinary retention, ALYSON Patient hadn't urinated since post-op. He was given 2L NS and still didn't urinate. AM labs then revealed ALYSON, so bladder scan was checked and revealed 1.2L residual. Leyva was placed. ALYSON likely related to pre-renal, intrarenal ( ATN from hypotension) and post-obstructive etiologies. Consider repeat BMP later in day. # hypoglycemia May be related to NPO status throughout the day of 12/28, with full dose lantus administration on 12/27, 12/28. Patient now tolerating diet, will continue to monitor, providing D50 or sliding scale coverage as needed. Maureen Hinds DO Objective: Vital Signs Temp Pulse Resp BP Pulse Ox 36.7 C 93 20 102/58 L 95 12/29/16 05:58 12/29/16 05:58 12/29/16 05:58 12/29/16 05:58 12/29/16 05:58 Microbiology 12/28/16 07:55 Gram Stain - Final Foot - Bone Laboratory Results 12/29/16 01:30 12/29/16 01:30 12/28/16 12/29/16 12/30/16 05:59 05:59 05:59 Intake Total 1244 0560 Output Total 1395 Balance 1245 7608 ICD10 Worksheet Patient Problems: Problems Problem Status Onset Diabetic foot infection Acute Osteomyelitis of left foot Acute
[2016-12-29] MEDS ORDERED: FUROSEMIDE 20 MG/2 ML VIAL IVP ONE (07:38)
--- NOTE | 2016-12-29 08:34 | SOAPPROG ---
SOAP Progress Note Assessment/Plan: Assessment: POD # 1 s/p L transmetatarsal amputation Stat team called this am due to hypoxia Was hypotensive last night and given 2 L fluid which he responded to This am elevated WBC, rigors, on 15 L face mask with O2 sat 88% Transferred to ICU Lasix 20 I discontinued Metformin, Glipizide, Atorvastatin, Lisinopril Zosyn needs to be renally dosed BC pending Unsure if sepsis D Dimer was ordered and high but difficult to interpret immediately post operatively If cannot get CTA of chest (due to elevated CR), can start therapuetic Heparin Continue incisional wound vac at 75 mm Hg. Can dc wound vac on 01/03 or at time of discharge (whichever is first) S: Benoit is not complaining of pain. His eyes are closed but he is alert and answering questions appropriately. Rigors resolving O: No erythema on foot. WV to suction Plan: 12/29/16 08:27 Objective: Vital Signs Temp Pulse Resp BP Pulse Ox 37.5 C 122 H 24 H 170/80 H 89 L 12/29/16 07:49 12/29/16 07:49 12/29/16 07:49 12/29/16 07:49 12/29/16 07:49 Microbiology 12/28/16 07:55 Gram Stain - Final Foot - Bone Laboratory Results 12/29/16 01:30 12/29/16 01:30 12/28/16 12/29/16 12/30/16 05:59 05:59 05:59 Intake Total 1244 7393 Output Total 1395 Balance 1244 2795 ICD10 Worksheet Patient Problems: Problems Problem Status Onset Diabetic foot infection Acute Osteomyelitis of left foot Acute
[2016-12-29 08:45] LABS: BASE EXCESS -5.8 mEq/L (-2.5-2.5); BICARBONATE 19 mEq/L (22-26); MEASURED OXYGEN SATURATION 94 % (92-95); PCO2 35 mmHg (34-38); PO2 71 mmHg (65-75); TCO2 20 mEq/L (23-27)
[2016-12-29 08:46] LABS: BIPAP YES
[2016-12-29 08:47] LABS: EXP PRESSURE 5; INSP PRESSURE 12; O2 CONCENTRATIION 50 % (0-100); P/F RATIO 142 RATIO
[2016-12-29] MEDS: ASPIRIN EC 81 MG TAB PO SCH (08:52)
--- NOTE | 2016-12-29 09:34 | HOSPPROG ---
Hospitalist Progress Note Assessment/Plan: #?Sepsis: post surgical, left foot TMA #Acute Respiratory Failure, on Bipap, etiology likely volume overload #DM and hypoglycemia #Left Foot OM #Acute Kidney Injury, likely sepsis related #Encephalopathy, due to infection #PVD Plan: -Continue Bipap for now. Resp status has improved after Lasix this morning. Will check another CXR as first one was (personally reviewed) done before IVF. Likely has some pulm edema. May benefit from additional Lasix. D-Dimer is elevated and likely multifactorial. Would hold off on CTA given renal failure and improving resp status. -BP is better, no indication for additional fluids or pressors at this time. Monitor closely if additional IVF given -Zosyn was given earlier. Will continue. Appears to have responded to Zosyn and will hold off on Vanc for now. ID following, appreciate reccs -Monitor UOP and Cr. No indication for acute dialysis. Nephrology following. Avoid nephrotoxic agents -Glucose mgmt. Meds have been modified -minimized [employer] acting medication while patient remains confused -DVT proph per surgery I discussed this case with Nephrology This is my first encounter with this patient Total critical care time is 35 minutes Subjective: slightly confused. Denies pain. Reports breathing is better. No CP. Objective: Vital Signs Temp Pulse Resp BP Pulse Ox 37.6 C 110 H 18 138/57 H 88 L 12/29/16 08:00 12/29/16 08:00 12/29/16 08:25 12/29/16 08:00 12/29/16 08:25 Microbiology 12/28/16 07:55 Gram Stain - Final Foot - Bone Laboratory Results 12/29/16 01:30 12/29/16 01:30 12/28/16 12/29/16 12/30/16 05:59 05:59 05:59 Intake Total 1244 5353 Output Total 1395 350 Balance 1244 3958 -350 - Physical Exam Constitutional: no apparent distress, not in pain Eyes: PERRL, EOMI Ears, Nose, Mouth, Throat: moist mucous membranes, hearing normal Cardiovascular: regular rate and rhythym, no murmur, rub, or gallop, No JVD Respiratory: No no rales or rhonchi, No clear to auscultation Gastrointestinal: normoactive bowel sounds, soft, non-tender abdomen Genitourinary: monroe in urethra Skin: warm Musculoskeletal: other (Left foot TMA with wound vac in place) Neurologic: CN II-XII Intact, No AAOx3 Psychiatric: interacting appropriately, encephalopathic, poor memory ICD10 Worksheet Patient Problems: Problems Problem Status Onset Diabetic foot infection Acute Osteomyelitis of left foot Acute
[2016-12-29] MEDS ORDERED: FUROSEMIDE 40 MG/4 ML VIAL IVP ONE (09:47)
[2016-12-29] MEDS ORDERED: FUROSEMIDE 20 MG/2 ML VIAL ONE (09:50)
[2016-12-29] MEDS: INSULIN GLARGINE 100 UNITS/ML SYRINGE SC SCH (10:01)
[2016-12-29] MEDS: GABAPENTIN 300 MG CAP PO SCH (10:02)
--- NOTE | 2016-12-29 10:27 | GCON ---
[f rep st] CONSULTATION REFERRING PHYSICIAN: Halie Maurer MD REASON FOR CONSULTATION: Acute renal failure. HISTORY OF PRESENT ILLNESS: The patient is a 51-year-old male with diabetes mellitus, peripheral va scular disease, and chronic kidney disease. He was admitted here in November for evaluation of a foot ulcer. He had a CT angiogram and sustained some kidney injury. We did see him during that hospital ization. His creatinine was 1.0 in the past. Over the past several months while he has struggled w ith this ulcer, it has been higher. In November, he came in with a creatinine of 1.1, but it bumped to 2.2 and then came down to 1.5. Urine protein studies at that time showed a spot tcgkhfn-bq-dlqxbmk ine ratio of 5 g/g on 1 test and 10 g on another test. Hepatitis B surface antigen, hepatitis C ant ibody, HIV, and a spot UPEP were all negative. There was a report of red blood cell casts at that t steven. His creatinine came down to 1.3 on December 27. Unfortunately, he had difficulties with open wounds at the site of previous toe resections. He went back to the operating room for a transmetatarsal amputation with Dr. Maurer yesterday. Over the cou rse of the day, he has had very labile blood pressures and severe hypotension, as low as the 60s sys tolic. He was given fluid boluses. He developed respiratory distress requiring BiPAP overnight and was transferred this morning to the ICU. A Leyva catheter was placed last night with approximately a liter of urine return. This morning, he received a dose of furosemide 20 mg for respiratory dist ress but has only put out approximately 100 cc since that dose over an hour ago. He is not requirin g vasopressor support. He has not had high temperatures. However, he is very tachycardic and tachy pneic. A chest x-ray early this morning, which I personally reviewed, showed a left basilar infiltr ate but no obvious pulmonary edema. History was taken from discussion with Dr. Maurer, review of the medical record, all of which I summa rized here. His creatinine has bumped to 2.6 this morning. PAST MEDICAL HISTORY: See HPI. Hypertension diagnosed 3 years ago, diabetes mellitus type 2 diagno sed approximately 3 years ago, proteinuria, and osteomyelitis. PAST SURGICAL HISTORY: Debridement of foot wounds, toe amputations. ALLERGIES: No known allergies. MEDICATIONS: Up through this morning included lisinopril 10 mg daily and metformin. Currently, he is receiving aspirin, Neurontin, Lantus, morphine, normal saline (which has been discontinued). SOCIAL HISTORY: He has never been a smoker. He occasionally drinks alcohol. He does not use any a dditional drugs. FAMILY HISTORY: Negative for cardiac disease. REVIEW OF SYSTEMS: Unable to obtain as patient is on BiPAP and confused. PHYSICAL EXAMINATION: GENERAL: Diaphoretic and tachypneic male who is awake and on BiPAP. HEENT: Eyes without scleral icterus. Head atraumatic, normocephalic. NECK: Obese. Unable to s ee jugular venous distention. No gross lymphadenopathy. HEART: Tachycardic. Regular rhythm witho ut murmurs, gallops, or rubs. LUNGS: Coarse bibasilar crackles. ABDOMEN: Obese, soft, and nonten alma. EXTREMITIES: Lower extremities without any pitting edema. SKIN: Without rashes. MUSCULOSKE LETAL: No gross joint swelling or deformities. GENITOURINARY: Leyva catheter is in place with 100 cc of light aries urine in the bag. NEUROLOGIC: No gross focal deficits. He seems a bit confused when taken off BiPAP to answer questions briefly. LABORATORY DATA: Urinalysis shows 1-3 red and 1-3 white cells, 1+ glucose, 2+ protein, otherwise ne gative. Sodium 134, potassium 4.5, CO2 23, BUN 30, creatinine 2.6, calcium 7.7. White count 17.5, hemoglobin 9.7, platelets 357. Chest x-ray as above IMPRESSION AND PLAN: 1. Acute renal failure. He most likely has ischemic acute tubular necrosis related to severe hypot ension and probable sepsis. It is possible there were some fluid shifts causing a prerenal state. However, due to his respiratory status, he is unable to tolerate any further volume resuscitation. He was on lisinopril, which would exacerbate affects of hypotension on his kidneys. This has been h eld. Also, his metformin has been discontinued. He has not received any IV contrast or nephrotoxin s per my review. He may require dialysis in the next 24 hours or even later today depending on his response to furosemide and his respiratory status. Adjust Zosyn for his current renal function, wit h GFR well below 30. 2. Acute respiratory failure. Most likely acute diastolic heart failure related to sepsis and volu me resuscitation. Chest x-ray suggests pneumonia in the left lower lobe. Possibly a component of s ystemic inflammatory response syndrome driving his tachypnea as well. Continue BiPAP, antibiotics. I will would re-dose with a larger dose of furosemide shortly if he has not responded. We will malinda ssess. 3. Probable sepsis. Presumed source from his foot. Blood cultures negative thus far. Foot growin g gram-negative rods thus far. I would cover broadly. Infectious Disease is following. 4. Acidosis. He has a mildly increased lactate of 3.3. Serum bicarbonate is currently normal with a pH of 7.35, due to good respiratory compensation. 5. Chronic kidney disease. He most likely has underlying diabetic and/or hypertensive nephropathy. He had very heavy proteinuria, approximately 5 g back in November. He will need outpatient nephrolog y followup. He did have negative preliminary serologies. Thank you for this consult. I spent greater than 30 minutes in critical care time with this patient. /[id number]/MODL
[2016-12-29] MEDS ORDERED: PIPERACILLIN/TAZO 3.375 GM/DEX 50 ML IV SCH (10:51)
[2016-12-29] MEDS ORDERED: VANCOMYCIN 1.25 GM in D5W 250 ML IV ONE (11:30)
[2016-12-29] MEDS: PIPERACILLIN/TAZO 2.25 GM/DEX 50 ML IV SCH ×3 (12:00→23:50)
[2016-12-29] MEDS: ACETAMINOPHEN 325 MG TAB PO PRN (12:31)
--- NOTE | 2016-12-29 13:18 | ECHO ---
[id number] + + [address] : : [place] [address] : : [phone] + + Adult Echocardiographic Report + + :Name: Jonathan RICHARDS Date: 12/29/2016 12:14 PM : : Hospital Admission Number: [id number] Location: 253: :: 1965 Gender: Male Inna ht: 66 in : :Age: 51 yrs Race: CEM SANTOS ht: 167 lb : :Reason For Study: Eval LV Fx : : BSA: 1.9 meters2 : :History: Question CHF : + + MMode/2D Measurements \T\ Calculations IVSd: 1.2 cm LVIDd: 5.5 cm FS: 34.3 % Ao root diam: 3.6 cm LVPWd: 1.3 cm LVIDs: 3.6 cm EDV(Teich): 145.1 ml ACS: 1.6 cm ESV(Teich): 54.0 ml EF(Teich): 62.8 % Normal Measurement Values: + + :LVIDd (3.5-5.7cm) IVSd (0.6-1.1cm) LVPWd (0.6-1.1cm) Aortic Root (2.0-3.7cm)Left Atrium (1.5-4.0cm): :LV Vol(d) (76-115ml) LV Vol(s) (29-48ml) Ejec Fraction (50-65%)PV Nathan (0.6- 1.2m/s) TV Nathan (0.4-1.0m/s) : :MV E Nathan (0.8-1.0m/s)MV A Nathan (0.3-1.0m/s)LVOT Nathan (0.7-1.2m/s) Asc Ao Nathan ( 0.9-1.8m/s) : + + Doppler Measurements \T\ Calculations MV E max nathan: Ao V2 max: LV V1 max: PA V2 max: 54.3 cm/sec 145.2 cm/sec 88.4 cm/sec 96.4 cm/sec MV A max nathan: Ao max P.4 mmHg LV V1 max PG: PA max P.9 cm/sec 3.1 mmHg 3.7 mmHg MV E/A: 0.65 Left Ventricle The left ventricle is normal in size. There is mild concentric left ventricular hypertrophy. The left ventricular ejection fraction is normal. There is Doppler evidence for diastolic dysfunction. Ejection Fraction = 63%. The left ventricular wall motion is normal. Right Ventricle The right ventricle is normal in size and function. Atria The left atrial size is normal. Right atrial size is normal. Mitral Valve The mitral valve is normal in structure and function. There is no evidence of mitral valve prolapse. There is no mitral valve stenosis. There is no mitral regurgitation noted. Tricuspid Valve Normal tricuspid valve. There is trace tricuspid regurgitation. Aortic Valve The aortic valve is not well seen. The leaflets appear thickened and sclerotic. There is no aortic stenosis. There is no aortic insufficiency. Pulmonic Valve The pulmonic valve is not well visualized. There is no pulmonic valvular regurgitation. Great Vessels The aortic root is normal size. Pericardium/Pleural There is no pericardial effusion. Conclusion A complete two-dimensional transthoracic echocardiogram was performed (2D, M-mode, Doppler and color flow Doppler). 1. The left ventricle is normal in size. There is mild concentric left ventricular hypertrophy. The Ejection Fraction = 63%. There is Doppler evidence for diastolic dysfunction. 2. The mitral valve is normal in structure and function. 3. The aortic valve is not well seen. The leaflets appear thickened and sclerotic. There is no aortic stenosis. There is no aortic insufficiency. 4. The pulmonary artery pressure could not be adequately estimated. 5. No old studies for comparison. Final Reading Physician: David Alan MD electronically signed on 12/29/2016 01:17 PM Ordering Physician: Osbaldo Bowers Performed By: Curt Tian, RDCS
[2016-12-29 15:07] LABS: ANION GAP 8 mEq/L (8-16); CALCIUM 7.4 mg/dL (8.5-10.4); CARBON DIOXIDE 22 mEq/l (22-31); CHLORIDE 101 mEq/L (97-110); CREATININE 3.4 mg/dL (0.7-1.3); GLOMERULAR FILTRATION RATE 19; GLUCOSE 66 mg/dL (70-100); POTASSIUM 5.1 mEq/L (3.5-5.2); SODIUM 131 mEq/L (134-144)
[2016-12-29] MEDS ORDERED: NOREPINEPHRINE BITARTRATE 16 MG in D5W 250 ML IV SCH (15:30)
[2016-12-29] MEDS ORDERED: NOREPINEPHRINE/NS 500 ML IV SCH (15:30)
[2016-12-29 16:24] LABS: INR 1.32 (0.83-1.16); PROTIME(PATIENT) 16.4 SEC (12.0-15.0)
[2016-12-29 17:21] LABS: CALCULATED OXYGEN SATURATION 64 % (92-95)
--- NOTE | 2016-12-29 18:10 | PCMIDPN ---
Assessment/Plan: Assessment: L foot osteomyelitis -- s/p revision of amputation to TMA. Citrobacter in the operative sample. Likely to be covered by Zosyn. No direct evidence to include resistant gram positive coverage - moreso considering the next problem. Acute renal failure -- probably multifactorial. Zosyn dose adjusted. Will follow renal recs and adjust coverage as needed. Clinically the patient seems somewhat improved at this time. Plan: 1) Continue Zosyn -- and adjust dosing for renal dysfunction. 2) Hold off on Vancomycin addition. Discussed with hospitalist. Subjective: Patient resting in the ICU -- breathing somewhat better following diuresis. New ARF. Fever to 39 earlier. Objective: Zosyn # 2 Vital Signs Temp Pulse Resp BP Pulse Ox 37.2 C 93 12 167/105 H 100 12/29/16 18:00 12/29/16 18:00 12/29/16 18:00 12/29/16 18:00 12/29/16 18:00 Microbiology 12/28/16 07:55 Gram Stain - Final Foot - Bone Laboratory Results 12/29/16 01:30 12/29/16 14:22 12/28/16 12/29/16 12/30/16 05:59 05:59 05:59 Intake Total 1244 5353 225 Output Total 1395 850 Balance 1244 3958 -625 ESR 98 MM/HR (0-20) H 12/27/16 07:40 C-Reactive Protein 35.6 mg/L (<10.0) H 12/27/16 07:40 - Physical Exam General Appearance: WD/WN, alert, no apparent distress, non-toxic Respiratory: lungs clear, normal breath sounds, other (BIpap), No respiratory distress Cardiac/Chest: regular rate, rhythm, No tachycardia Skin: normal color, warm/dry, No rash ICD10 Worksheet Patient Problems: Problems Problem Status Onset Diabetic foot infection Acute Osteomyelitis of left foot Acute
[2016-12-29] MEDS ORDERED: D5W 1,000 ML IV SCH (22:00)
[2016-12-30 05:17] LABS: % IMMATURE GRANULYOCYTES 0.4 % (0.0-1.1); ABSOLUTE IMMATURE GRANULOCYTES 0.06 10^3/uL (0.00-0.10); ADD DIFF? NO; ADD MORPH? NO; ADD SCAN? YES; ATYPICAL LYMPHOCYTE FLAG 0 (0-99); FRAGMENT RBC FLAG 0 (0-99); HEMOGLOBIN 9.1 g/dL (13.7-17.5); LIPEMIA HEMOLYSIS FLAG 80 (0-99); MEAN CELL HEMOGLOBIN 29.5 pg (27.9-34.1); MEAN CELL HEMOGLOBIN CONCENTR. 33.7 g/dL (32.4-36.7); MEAN CELL VOLUME 87.7 fL (81.5-99.8); MEAN PLATELET VOLUME 9.2 fL (8.7-11.7); PLATELET CLUMPS FLAG 0 (0-99); PLATELET COUNT 290 10^3/uL (150-400); RED BLOOD CELL COUNT 3.08 10^6/uL (4.40-6.38); RED CELL DISTRIBUTION WIDTH 12.8 % (11.5-15.2)
[2016-12-30 05:22] LABS: LEFT SHIFT FLG 140 (0-99)
[2016-12-30] MEDS: PIPERACILLIN/TAZO 2.25 GM/DEX 50 ML IV SCH ×3 (05:29→17:52)
[2016-12-30 05:34] LABS: ANION GAP 7 mEq/L (8-16); CALCIUM 7.9 mg/dL (8.5-10.4); CARBON DIOXIDE 23 mEq/l (22-31); CHLORIDE 104 mEq/L (97-110); CREATININE 3.7 mg/dL (0.7-1.3); GLOMERULAR FILTRATION RATE 17; GLUCOSE 83 mg/dL (70-100); POTASSIUM 4.5 mEq/L (3.5-5.2); SODIUM 134 mEq/L (134-144)
[2016-12-30 06:18] LABS: SCAN NEGATIVE
[2016-12-30] MEDS: ASPIRIN EC 81 MG TAB PO SCH (08:43)
--- NOTE | 2016-12-30 08:50 | GOP ---
[f rep st] OPERATIVE REPORT DATE OF OPERATION: 12/29/2016 SURGEON: Halie Maurer MD ANESTHESIA: None. PREOPERATIVE DIAGNOSIS: Acute kidney injury. POSTOPERATIVE DIAGNOSIS: Acute kidney injury. PROCEDURE PERFORMED: Ultrasound-guided right temporary dialysis catheter placement. FINDINGS: No unusual findings SPECIMENS: None. ESTIMATED BLOOD LOSS: 10 cc. INDICATIONS: The patient is a 51-year-old man, status post amputation of left foot, for osteomyelitis. He has become critically ill. His creatinine is rising. He is trending toward hyperkalemia. He is also having increased difficulty with respiratory. Dialysis catheter was indicated in the event that the CRRT is needed overnight. DESCRIPTION OF PROCEDURE: The patient was in the intensive care unit. His sister was consented for him to have this procedure. The patient was unable to complete the consent himself. His right neck was prepped and draped in the usual sterile fashion. Using the ultrasound, I accessed the jugular vein, but I went through and there was pulsatile blood flow. I removed the needle and held pressure. I then accessed the right internal jugular vein on the second attempt, with dark return of blood flow. I threaded the guidewire and removed the needle. Using the Seldinger technique, I performed serial dilations, and I placed the dialysis catheter over the wire, and I removed the wire. Each port withdrew blood easily and was flushed with saline. The catheter was sewn into place with 2-0 nylon. Sterile dressing was applied. He tolerated the procedure well. The chest x-ray shows the device in appropriate position. /[id number]/MODL MTDD
--- NOTE | 2016-12-30 08:58 | SOAPPROG ---
SOAP Progress Note Assessment/Plan: Assessment: 1. ALYSON. Most likely ischemic ATN due to severe hypotension and possible sepsis. Creat still rising albeit more slowly and nonoliguric with excellent UOP. Appreciate HD catheter placement by Dr. Maurer. Fortunately appears to be recovering without any acute indications for dialysis. Will wait to ensure creat plateaus and starts falling prior to d/c dialysis catheter. 2. Acute respiratory failure. Most likely pulmonary edema from fluid resuscitation, cannot r/o ards/aspiration /etc. Although CVP and BP low, improving with autodiuresis. Can repeat lasix prn if uop slows and BP o/w stable. 3. Sepsis. s/p L TMA for nonhealing wounds. Cxs negative thus far. Continue zosyn, renally dosed. Wean levophed as able. 4. Acidosis. Improving. 5. CKD. Had 5-10g proteinuria on spot urine last month. B/l creat 1.3. Basic seros neg. F/u in neph clinic after d/c. Plan: 12/30/16 08:57 12/30/16 09:04 12/30/16 09:05 Subjective: Feeling better this am. HD catheter placed yesterday but since has had excellent UOP so did not receive dialysis. Breathing better, still on BIPAP but with lower O2 needs. Requiring low dose levophed. Objective: Vital Signs Temp Pulse Resp BP Pulse Ox 37.7 C 90 16 108/49 L 99 12/30/16 07:00 12/30/16 07:00 12/30/16 07:00 12/30/16 07:00 12/30/16 07:00 Microbiology 12/28/16 07:55 Gram Stain - Final Foot - Bone Laboratory Results 12/30/16 05:03 12/30/16 05:03 12/29/16 12/30/16 12/31/16 05:59 05:59 05:59 Intake Total 5353 795.2 Output Total 1395 3600 Balance 3958 -2804.8 PT 16.4 SEC (12.0-15.0) H 12/29/16 15:53 INR 1.32 (0.83-1.16) H 12/29/16 15:53 Awake, alert, on bipap. More comfortable than yesterday. RRR, no m/g/r Decreased breath sounds in bases Abdom soft, nt No edema Leyva with 600cc uop since 6 am (2 hrs) ICD10 Worksheet Patient Problems: Problems Problem Status Onset Diabetic foot infection Acute Osteomyelitis of left foot Acute
[2016-12-30] MEDS: HYDROCODONE/APAP 5/325 TAB PO PRN ×2 (10:02→16:28)
--- NOTE | 2016-12-30 13:01 | SOAPPROG ---
SOAP Progress Note Assessment/Plan: Assessment: POD # 2 s/p L transmetatarsal amputation Much improved today. Alert. Dialysis not needed. Continue incisional wound vac at 75 mm Hg. Can dc wound vac on 01/03 or at time of discharge (whichever is first) S: Benoit is not complaining of pain. He does not remember yesterday O: No erythema on foot. W[place] to suction Plan: 12/29/16 08:27 12/30/16 13:00 Objective: Vital Signs Temp Pulse Resp BP Pulse Ox 37.7 C 97 22 H 130/65 H 94 12/30/16 07:00 12/30/16 10:00 12/30/16 10:00 12/30/16 10:00 12/30/16 10:00 Microbiology 12/28/16 07:55 Gram Stain - Final Foot - Bone Laboratory Results 12/30/16 05:03 12/30/16 05:03 12/29/16 12/30/16 12/31/16 05:59 05:59 05:59 Intake Total 5353 795.2 Output Total 1395 3600 1200 Balance 3958 -2804.8 -1200 PT 16.4 SEC (12.0-15.0) H 12/29/16 15:53 INR 1.32 (0.83-1.16) H 12/29/16 15:53 ICD10 Worksheet Patient Problems: Problems Problem Status Onset Diabetic foot infection Acute Osteomyelitis of left foot Acute
[2016-12-30 14:31] LABS: ANION GAP 8 mEq/L (8-16); CALCIUM 7.6 mg/dL (8.5-10.4); CARBON DIOXIDE 23 mEq/l (22-31); CHLORIDE 102 mEq/L (97-110); CREATININE 3.5 mg/dL (0.7-1.3); GLOMERULAR FILTRATION RATE 18; GLUCOSE 176 mg/dL (70-100); MAGNESIUM 1.8 mg/dL (1.6-2.3); POTASSIUM 4.6 mEq/L (3.5-5.2); SODIUM 133 mEq/L (134-144)
--- NOTE | 2016-12-30 16:59 | PCMIDPN ---
Assessment/Plan: Assessment: L foot osteomyelitis -- s/p revision of amputation to TMA. Citrobacter in the operative sample. Covered by Zosyn as the Citrobacter isolate is relatively sensitive. No direct evidence to include resistant gram positive coverage - moreso considering the next problem. Acute renal failure -- probably multifactorial. Zosyn dose adjusted. Will follow renal recs and adjust coverage as needed. Clinically the patient is clearly improving. Plan: 1) Continue Zosyn -- and adjust dosing for renal dysfunction. 2) follow clinical course. Subjective: Patient is resting in his hospital bed. He no longer needs noninvasive breathing assistance. He denies any pain except for some throbbing in his left foot. No fevers or chills. Objective: Zosyn # 3 Vital Signs Temp Pulse Resp BP Pulse Ox 36.9 C 84 15 106/54 L 96 12/30/16 16:00 12/30/16 16:00 12/30/16 16:00 12/30/16 16:00 12/30/16 16:00 Microbiology 12/28/16 07:55 Gram Stain - Final Foot - Bone Laboratory Results 12/30/16 05:03 12/30/16 14:00 12/29/16 12/30/16 12/31/16 05:59 05:59 05:59 Intake Total 5353 795.2 Output Total 1395 3600 0 Balance 3958 -2804.8 -2049 ESR 98 MM/HR (0-20) H 12/27/16 07:40 C-Reactive Protein 35.6 mg/L (<10.0) H 12/27/16 07:40 - Physical Exam General Appearance: WD/WN, alert, no apparent distress, non-toxic Respiratory: lungs clear, normal breath sounds, No respiratory distress Cardiac/Chest: regular rate, rhythm, No tachycardia Extremities: non-tender, No normal inspection Skin: normal color, warm/dry, No rash Neuro/Psych: alert, normal mood/affect ICD10 Worksheet Patient Problems: Problems Problem Status Onset Diabetic foot infection Acute Osteomyelitis of left foot Acute
--- NOTE | 2016-12-30 17:03 | HOSPPROG ---
Hospitalist Progress Note Assessment/Plan: assessment: 51-year-old male presents for left transmetatarsal amputation complicated by severe sepsis, acute hypoxic respiratory failure, suspected diastolic congestive heart failure exacerbation Plan: 1. Severe sepsis. Evidenced by tachycardia, tachypnea, leukocytosis, fever, clear source of infection notably osteomyelitis with end-organ failure notably lactic acidosis, acute kidney injury, respiratory failure, resulting in autonomic dysregulation in the setting of infection -patient did require Levophed for some hypotension - status post IV fluids -status post empiric IV antibiotics -continue monitor fever curve and white blood cell count 2. Osteomyelitis. Patient with left foot osteomyelitis requiring left transmetatarsal amputation, postop day [address] Maurer - Dr. Maurer remains primary - infectious Disease consultation appreciated - organism appears to be pansensitive Citrobacter, continue Zosyn 3. Acute hypoxic respiratory failure. Evidenced by SpO2 of 88% on room air with tachypnea and labored breathing requiring BiPAP therapy and transfer to intensive care unit, most likely secondary to acute volume overload and suspected diastolic congestive heart failure exacerbation - weaned from BiPAP to NC today - NOT related to patient's surgery 4. Suspected acute diastolic CHF exacerbation. Acute, new problem, further w/u indicated. Evidenced by diffuse bilat pulmonary infiltrates on CXR (personally interpreted) in setting of volume overload w/ ALYSON and fluid retention - respiratory status significantly improving with osmotic diuresis, net -2.8 L overnight - cont monitor UOP - get echocardiogram to further characterize 5. Metabolic acidosis. Acute, 2/2 lactic acid in setting of above 6. ALYSON. 2/2 hypoperfusion in setting of sev sepsis, HD cath placed but patient is now osmotically diuresing - repeat PM lytes now to gauge whether replacement needed - appreciate renal consultation 7. Acute encephalopathy. Evidenced by global brain dysfunction characterized as confusion, somnolence, acute change from baseline, 2/2 metabolic effects of uremia/acidosis/infxn 8. PVD. Chronic, resulting in osteo wound 9. DM2 w/ hyperglycemia. Placed on ISS Hospital Medicine will continue to consult in this patient's care High complexity patient, high risk of worsening morbidity and/or mortality, secondary to the issues outlined above. Subjective: Patient reports that his foot pain is improving Objective: Vital Signs Temp Pulse Resp BP Pulse Ox 36.9 C 84 15 106/54 L 96 12/30/16 16:00 12/30/16 16:00 12/30/16 16:00 12/30/16 16:00 12/30/16 16:00 Microbiology 12/28/16 07:55 Gram Stain - Final Foot - Bone Laboratory Results 12/30/16 05:03 12/30/16 14:00 12/29/16 12/30/16 12/31/16 05:59 05:59 05:59 Intake Total 5353 795.2 Output Total 1395 3600 2049 Balance 3958 -2804.8 -2049 PT 16.4 SEC (12.0-15.0) H 12/29/16 15:53 INR 1.32 (0.83-1.16) H 12/29/16 15:53 - Physical Exam Constitutional: no apparent distress, not in pain, chronically ill appearing, obese Cardiovascular: systolic murmur ( 1/6 at the sternum and apex), edema ( trace bilateral lower extremity), other ( palpable but reduced pulses in the left dorsalis pedis), No irregularly irregular, No tachycardia Respiratory: inspiratory crackles ( bilaterally), No reduced air movement, No expiratory wheeze, No bronchial breath sounds Gastrointestinal: normoactive bowel sounds, soft, non-tender abdomen, no palpable masses Psychiatric: interacting appropriately, not anxious, not encephalopathic, thought process linear ICD10 Worksheet Patient Problems: Problems Problem Status Onset Diabetic foot infection Acute Osteomyelitis of left foot Acute
--- NOTE | 2016-12-30 17:12 | PDINTPN ---
Assistant Banquet Manager Progress Note Assessment/Plan: Assessment: Acute hypoxemic respiratory failure: Improved. Likely due to SIRS, possible fluid overload. Hypotension: Resolved Hypoglycemia: Improved. ALYSON: In the setting of CKD. Now improved, did not get HD. Plan: Advance diet, restart Lantus. Start unfractionated heparin for DVT prophylaxis. Increase activity as tolerated. Transfer to SDU. 12/30/16 17:10 12/30/16 17:10 Subjective: Feels better. Foot pain fairly well controlled. Appetite improved but not back to normal. Strength improved, took some steps today. Objective: Vital Signs Temp Pulse Resp BP Pulse Ox 36.9 C 84 15 106/54 L 96 12/30/16 16:00 12/30/16 16:00 12/30/16 16:00 12/30/16 16:00 12/30/16 16:00 Microbiology 12/28/16 07:55 Gram Stain - Final Foot - Bone Laboratory Results 12/30/16 05:03 12/30/16 14:00 12/29/16 12/30/16 12/31/16 05:59 05:59 05:59 Intake Total 5353 795.2 Output Total 1395 3600 0 Balance 3958 -2804.8 -2050 PT 16.4 SEC (12.0-15.0) H 12/29/16 15:53 INR 1.32 (0.83-1.16) H 12/29/16 15:53 Physical Exam - Physical Exam General Appearance: alert, no apparent distress EENT: normal ENT inspection Neck: normal inspection Respiratory: crackles (bilateral) Cardiac/Chest: regular rate, rhythm, No edema Abdomen: normal bowel sounds, non-tender, soft Skin: normal color, warm/dry Extremities: non-tender Neuro/Psych: alert, normal mood/affect, oriented x 3 ICD10 Worksheet Patient Problems: Problems Problem Status Onset Diabetic foot infection Acute Osteomyelitis of left foot Acute
--- NOTE | 2016-12-30 17:31 | GCON ---
[f rep st] CONSULTATION DATE OF CONSULTATION: 12/29/2016 REFERRING PHYSICIAN: Halie Maurer MD Pulmonary/critical care consultation. REASON FOR REFERRAL: Evaluation and management of hypoxemia. HISTORY: The patient is a 51-year-old gentleman with a history of diabetes and peripheral vascular disease as well as chronic kidney disease. He has had a foot ulcer on the left with prior amputation of his toe, and because of progressive osteomyelitis, he underwent transmetatarsal amputation of his left foot yesterday, 12/28. Postoperatively today, he has developed worsening hypotension as well as increased oxygen needs, anuria, and confusion. He did not respond to Lasix. He is not able to give any history as he is somnolent and somewhat confused when aroused. PAST MEDICAL HISTORY: 1. Hypertension. 2. Diabetes. 3. Osteomyelitis. MEDICATIONS: Include Lantus and short-acting insulin, metformin, Neurontin, morphine. ALLERGIES: None. SOCIAL HISTORY: The patient has never been a smoker. He drinks alcohol occasionally. FAMILY HISTORY: Unremarkable. REVIEW OF SYSTEMS: Unobtainable. PHYSICAL EXAMINATION: GENERAL: The patient is somnolent and arousable. VITAL SIGNS: His blood pressure is 77/48 with heart rate of 90. Oxygen saturations are 100% on 75% oxygen via BiPAP. His T-max was 38.8. HEENT: Normocephalic and atraumatic. No icterus. NECK: No JVD. Trachea is midline. CHEST: He has some basilar rales. CARDIAC: Regular rate and rhythm without murmur. ABDOMEN: Soft, nontender. Bowel sounds are present. EXTREMITIES: No clubbing, cyanosis, or edema. NEURO: Responds to noxious stimuli. Moves all extremities. LABORATORY AND X-RAY DATA: Sodium is 131. Creatinine is 3.4, up from 1.3 at admission. An INR is 1.3. White blood count of 17.5, up from 8.5. Hemoglobin is 9.7, down from 12.4. Platelet count is 357. Arterial blood gas shows a pH of 7.35 with a pO2 of 71, pCO2 of 35, and a bicarbonate of 19 on 50% oxygen via BiPAP with pressures of 12/5. A chest x-ray shows fairly extensive changes of pulmonary edema, which had progressed. Images reviewed. ASSESSMENT: 1. Acute hypoxemic respiratory failure. The patient has hypoxemia that is responding to BiPAP. His hypoxemia is likely related to decreased respiratory effort/confusion, as well as pulmonary edema, possibly cardiogenic but also may be related to systemic inflammatory response syndrome/acute respiratory distress syndrome. He is currently oxygenating well and his arterial blood gas looks fairly good. It is very possible that he may require intubation and mechanical ventilation. 2. Acute kidney injury. Patient's creatinine is increased markedly. This could be related to systemic inflammatory response syndrome on top of chronic renal insufficiency from diabetes. He has been seen by Nephrology, and may require dialysis. 3. Possible sepsis. The patient has elevated lactate at 3.3, as well as increased white blood count, hypotension and fever. Most likely source would be his foot, although apparently intraoperatively he had just chronic osteomyelitis with no apparent active purulent infection. He has been started empirically on Zosyn and has been given fluids. 4. Diabetes. The patient's blood sugars have been on the low side. His Lantus insulin is being held. RECOMMENDATIONS: 1. Continue BiPAP. 2. Dialysis catheter will be placed for possible dialysis. 3. Antibiotics will be continued. 4. Blood sugars will be monitored closely. /[id number]/MODL MTDD
[2016-12-30] MEDS ORDERED: D50W 25 GM/50 ML VIAL IVP PRN (18:16)
[2016-12-30] MEDS ORDERED: D50W 25 GM/50 ML SYR IVP PRN (18:16)
[2016-12-30] MEDS ORDERED: PARAMETERS MISC PRN (18:16)
[2016-12-30] MEDS: INSULIN REGULAR, HUMAN 100 UNIT/1 ML VIAL STANDARD SC SCH ×2 (18:21→21:28)
[2016-12-30] MEDS: INSULIN GLARGINE 100 UNITS/ML SYRINGE SC SCH (21:28)
[2016-12-30] MEDS: HEPARIN 5,000 UNIT/0.5 ML SYR SC SCH (21:28)
[2016-12-31] MEDS: PIPERACILLIN/TAZO 2.25 GM/DEX 50 ML IV SCH ×3 (00:12→12:21)
[2016-12-31] MEDS: HEPARIN 5,000 UNIT/0.5 ML SYR SC SCH ×3 (05:47→21:06)
[2016-12-31] MEDS: HYDROCODONE/APAP 5/325 TAB PO PRN ×2 (06:01→21:17)
[2016-12-31 06:05] LABS: % IMMATURE GRANULYOCYTES 0.6 % (0.0-1.1); ABSOLUTE IMMATURE GRANULOCYTES 0.08 10^3/uL (0.00-0.10); ADD DIFF? NO; ADD MORPH? NO; ADD SCAN? NO; ATYPICAL LYMPHOCYTE FLAG 0 (0-99); FRAGMENT RBC FLAG 0 (0-99); HEMATOCRIT 24.6 % (40.0-51.0); HEMOGLOBIN 8.4 g/dL (13.7-17.5); LEFT SHIFT FLG 40 (0-99); LIPEMIA HEMOLYSIS FLAG 90 (0-99); MEAN CELL HEMOGLOBIN 29.5 pg (27.9-34.1); MEAN CELL HEMOGLOBIN CONCENTR. 34.1 g/dL (32.4-36.7); MEAN CELL VOLUME 86.3 fL (81.5-99.8); MEAN PLATELET VOLUME 9.7 fL (8.7-11.7); PLATELET CLUMPS FLAG 10 (0-99); PLATELET COUNT 280 10^3/uL (150-400); RED BLOOD CELL COUNT 2.85 10^6/uL (4.40-6.38); RED CELL DISTRIBUTION WIDTH 12.6 % (11.5-15.2)
[2016-12-31 06:31] LABS: ALANINE AMINOTRANSFERASE 37 IU/L (21-72); ALBUMIN 2.1 g/dL (3.5-5.0); ALKALINE PHOSPHATASE 128 IU/L (38-126); ANION GAP 6 mEq/L (8-16); ASPARTATE AMINOTRANSFERASE 22 IU/L (17-59); BILIRUBIN,TOTAL 0.7 mg/dL (0.1-1.4); CALCIUM 7.9 mg/dL (8.5-10.4); CARBON DIOXIDE 24 mEq/l (22-31); CHLORIDE 103 mEq/L (97-110); CREATININE 3.4 mg/dL (0.7-1.3); GLOMERULAR FILTRATION RATE 19; GLUCOSE 66 mg/dL (70-100); POTASSIUM 4.6 mEq/L (3.5-5.2); SODIUM 133 mEq/L (134-144); TOTAL PROTEIN 5.2 g/dL (6.3-8.2)
--- NOTE | 2016-12-31 07:55 | SOAPPROG ---
SOAP Progress Note Assessment/Plan: Assessment: POD # 3 s/p L transmetatarsal amputation Cr stable, keeping dialysis catheter in place until Cr starts trending down Continue incisional wound vac at 75 mm Hg. Can dc wound vac on 01/03 or at time of discharge (whichever is first) Abx per ID, sensitive to Zosyn, still awaiting path to see if negative margins for osteo. If positive, Benoit will need a BKA Ambulate with cam boot S: Feeling well. No pain O: No evidence of infection by catheter Wound vac to suction Plan: 12/29/16 08:27 12/30/16 13:00 12/31/16 07:54 12/31/16 13:41 Objective: Vital Signs Temp Pulse Resp BP Pulse Ox 36.5 C 89 18 130/63 H 94 12/31/16 04:00 12/31/16 04:00 12/31/16 04:00 12/31/16 04:00 12/31/16 04:00 Microbiology 12/28/16 07:55 Gram Stain - Final Foot - Bone Laboratory Results 12/31/16 05:40 12/31/16 05:40 12/30/16 12/31/16 01/01/17 05:59 05:59 05:59 Intake Total 795.2 854.4 Output Total 3600 4300 Balance -2804.8 -3445.6 PT 16.4 SEC (12.0-15.0) H 12/29/16 15:53 INR 1.32 (0.83-1.16) H 12/29/16 15:53 ICD10 Worksheet Patient Problems: Problems Problem Status Onset Diabetic foot infection Acute Osteomyelitis of left foot Acute
[2016-12-31] MEDS: INSULIN REGULAR, HUMAN 100 UNIT/1 ML VIAL STANDARD SC SCH ×4 (08:18→21:18)
[2016-12-31] MEDS: ASPIRIN EC 81 MG TAB PO SCH (08:18)
[2016-12-31] MEDS: GABAPENTIN 300 MG CAP PO SCH ×3 (08:18→21:06)
[2016-12-31] MEDS: INSULIN GLARGINE 100 UNITS/ML SYRINGE SC SCH ×2 (08:18→21:17)
--- NOTE | 2016-12-31 09:50 | HOSPPROG ---
Hospitalist Progress Note Assessment/Plan: * left foot osteomyelitis status post transmetatarsal amputation * Management per surgery * Infectious Disease following * On Zosyn, Citrobacter * acute hypoxic respiratory failure * Much better * Due to fluid overload * acute on chronic renal failure * Stable creatinine * Good urine output * Does still have dialysis catheter in but never used * Nephrology following * acute diastolic CHF exacerbation? * Fluid overload could have been from renal failure * Echo looks okay * acute encephalopathy * Resolved * peripheral vascular disease * type 2 diabetes * Continue insulin * severe sepsis * Resolved * Did require pressors * DVT prophylaxis * Heparin Subjective: Feeling better. No shortness of breath. Pain well controlled Objective: Vital Signs Temp Pulse Resp BP Pulse Ox 36.9 C 87 20 116/63 92 12/31/16 08:00 12/31/16 08:00 12/31/16 08:00 12/31/16 08:00 12/31/16 08:00 Microbiology 12/28/16 07:55 Gram Stain - Final Foot - Bone Laboratory Results 12/31/16 05:40 12/31/16 05:40 12/30/16 12/31/16 01/01/17 05:59 05:59 05:59 Intake Total 795.2 854.4 Output Total 3600 4300 Balance -2804.8 -3445.6 PT 16.4 SEC (12.0-15.0) H 12/29/16 15:53 INR 1.32 (0.83-1.16) H 12/29/16 15:53 Tele personally reviewed interpreted normal sinus rhythm - Physical Exam Constitutional: no apparent distress, appears nourished, not in pain Eyes: anicteric sclera, EOMI Ears, Nose, Mouth, Throat: moist mucous membranes, hearing normal, ears appear normal Cardiovascular: regular rate and rhythym, no murmur, rub, or gallop Respiratory: no respiratory distress, no rales or rhonchi, clear to auscultation Gastrointestinal: normoactive bowel sounds, soft, non-tender abdomen, no palpable masses Skin: warm Musculoskeletal: other (Left transmetatarsal amputation with wound VAC) Neurologic: AAOx3 Psychiatric: interacting appropriately, not anxious, not encephalopathic, thought process linear ICD10 Worksheet Patient Problems: Problems Problem Status Onset Diabetic foot infection Acute Osteomyelitis of left foot Acute
--- NOTE | 2016-12-31 10:22 | SOAPPROG ---
SOAP Progress Note Assessment/Plan: Assessment/Plan: ALYSON: likely had ATN in setting of hypotension, now seems to be improved, Cr peaked at 3.7 yesterday and is 3.4 today, good UOP, lytes ok. - No need for HD at this time. - Will continue to monitor for renal recovery. Proteinuria: pt had a spot urine protein of 5g last month, basic serologies negative, baseline Cr 1.3. Will need nephrology f/u after discharge. Access: would leave catheter for now, if continues to improve then will be able to remove in next 1-2 days. Subjective: No acute events overnight. Pt states that he is feeling well, no pain, breathing comfortably. He had 4300ml UOP in past 24 hrs. Objective: Vital Signs Temp Pulse Resp BP Pulse Ox 36.9 C 87 20 116/63 92 12/31/16 08:00 12/31/16 08:00 12/31/16 08:00 12/31/16 08:00 12/31/16 08:00 Microbiology 12/28/16 07:55 Gram Stain - Final Foot - Bone Laboratory Results 12/31/16 05:40 12/31/16 05:40 12/30/16 12/31/16 01/01/17 05:59 05:59 05:59 Intake Total 795.2 854.4 Output Total 3600 4300 Balance -2804.8 -3445.6 PT 16.4 SEC (12.0-15.0) H 12/29/16 15:53 INR 1.32 (0.83-1.16) H 12/29/16 15:53 General: alert and oriented, no acute distress Eyes; EOMI, PERRL OP Clear CV: RRR Resp: CTAB, nonlabored respirations on NC Abd; SOft, NT Ext: no edema BLE, s/p L TMA with wound vac in place Neuro; CN II-XII grossly intact, no asterixis Psych: cooperative, appropriate mood and affect Access; R IJ temp cath ICD10 Worksheet Patient Problems: Problems Problem Status Onset Diabetic foot infection Acute Osteomyelitis of left foot Acute
--- NOTE | 2016-12-31 14:37 | PCMIDPN ---
Assessment/Plan: 1. Left foot osteomyelitis status post transmetatarsal amputation: Cultures are growing Citrobacter and finegoldia. will change antibiotics to ertapenem given no evidence of Pseudomonas or Enterococcus. Duration of antibiotics unclear. Will need to await pathology results prior to discontinuation. No evidence of hero-incisional cellulitis. 2. Acute kidney injury: Creatinine improving. Will dose adjust ertapenem accordingly. 12/31/16 14:35 Subjective: Patient is in good spirits. No complaints. No diarrhea. Creatinine improving. Objective: Zosyn 2.25 g IV q.6 hours day 4. Afebrile Vital Signs Temp Pulse Resp BP Pulse Ox 36.9 C 87 20 116/63 92 12/31/16 08:00 12/31/16 08:00 12/31/16 08:00 12/31/16 08:00 12/31/16 08:00 Microbiology 12/28/16 07:55 Gram Stain - Final Foot - Bone Laboratory Results 12/31/16 05:40 12/31/16 05:40 12/30/16 12/31/16 01/01/17 05:59 05:59 05:59 Intake Total 795.2 854.4 500 Output Total 3600 4300 850 Balance -2804.8 -3445.6 -350 ESR 98 MM/HR (0-20) H 12/27/16 07:40 C-Reactive Protein 35.6 mg/L (<10.0) H 12/27/16 07:40 foot cultures are growing 1+ Citrobacter and finegoldia - Physical Exam General Appearance: alert, no apparent distress EENT: pharynx normal, No thrush Respiratory: lungs clear Cardiac/Chest: regular rate, rhythm Extremities: other ( left lower extremity with evident TMA; wound VAC in place. Some pinkish erythema around the VAC margin, but appropriate postoperative finding.) Abdomen: non-tender, soft Skin: No rash ICD10 Worksheet Patient Problems: Problems Problem Status Onset Diabetic foot infection Acute Osteomyelitis of left foot Acute
[2016-12-31] MEDS: ERTAPENEM 0.5 GM in NS 50 ML IV SCH (16:08)
[2016-12-31] MEDS ORDERED: MAGNESIUM HYDROXIDE 30 ML UDCUP PO PRN (18:13)
[2016-12-31] MEDS ORDERED: BISACODYL 10 MG SUPP PR PRN (18:13)
[2016-12-31] MEDS: CYCLOBENZAPRINE 10 MG TAB PO SCH (21:05)
[2016-12-31] MEDS: SENNOSIDES/DOCUSATE SODIUM TAB PO SCH (21:07)
[2017-01-01] MEDS: HYDROCODONE/APAP 5/325 TAB PO PRN ×2 (01:50→21:21)
[2017-01-01 05:04] LABS: % IMMATURE GRANULYOCYTES 0.6 % (0.0-1.1); ABSOLUTE IMMATURE GRANULOCYTES 0.07 10^3/uL (0.00-0.10); ADD DIFF? NO; ADD MORPH? NO; ADD SCAN? NO; ATYPICAL LYMPHOCYTE FLAG 0 (0-99); FRAGMENT RBC FLAG 0 (0-99); HEMATOCRIT 24.4 % (40.0-51.0); HEMOGLOBIN 8.1 g/dL (13.7-17.5); LEFT SHIFT FLG 0 (0-99); LIPEMIA HEMOLYSIS FLAG 80 (0-99); MEAN CELL HEMOGLOBIN CONCENTR. 33.2 g/dL (32.4-36.7); MEAN CELL VOLUME 87.5 fL (81.5-99.8); MEAN PLATELET VOLUME 9.8 fL (8.7-11.7); PLATELET CLUMPS FLAG 30 (0-99); PLATELET COUNT 316 10^3/uL (150-400); RED BLOOD CELL COUNT 2.79 10^6/uL (4.40-6.38); RED CELL DISTRIBUTION WIDTH 12.6 % (11.5-15.2)
[2017-01-01 05:15] LABS: ANION GAP 7 mEq/L (8-16); CARBON DIOXIDE 25 mEq/l (22-31); CHLORIDE 103 mEq/L (97-110); CREATININE 3.6 mg/dL (0.7-1.3); GLOMERULAR FILTRATION RATE 18; GLUCOSE 68 mg/dL (70-100); POTASSIUM 4.5 mEq/L (3.5-5.2); SODIUM 135 mEq/L (134-144)
[2017-01-01] MEDS: HEPARIN 5,000 UNIT/0.5 ML SYR SC SCH ×3 (05:40→21:17)
[2017-01-01] MEDS: INSULIN REGULAR, HUMAN 100 UNIT/1 ML VIAL STANDARD SC SCH ×4 (08:04→21:17)
[2017-01-01] MEDS: ASPIRIN EC 81 MG TAB PO SCH (09:33)
[2017-01-01] MEDS: SENNOSIDES/DOCUSATE SODIUM TAB PO SCH ×2 (09:33→21:17)
[2017-01-01] MEDS: GABAPENTIN 300 MG CAP PO SCH ×3 (09:33→21:17)
[2017-01-01] MEDS: POLYETHYLENE GLYCOL 3350 17 GM PKT PO PRN (09:36)
[2017-01-01] MEDS: INSULIN GLARGINE 100 UNITS/ML SYRINGE SC SCH (09:38)
--- NOTE | 2017-01-01 10:23 | PCMIDPN ---
Assessment/Plan: 1. Left foot osteomyelitis status post transmetatarsal amputation: Cultures are growing Citrobacter and finegoldia, covered by ertapenem. Duration of antibiotics are not clear to me at this point in time. Would continue until pathology returns. 2. Acute kidney injury: Nephrology following along. [place] secondary to ischemic ATN. Subjective: In good spirits. No complaints. No diarrhea. Objective: Ertapenem 500 mg IV daily day 2 (antibiotics day 5) Afebrile Vital Signs Temp Pulse Resp BP Pulse Ox 36.7 C 73 16 154/81 H 92 01/01/17 07:59 01/01/17 07:59 01/01/17 07:59 01/01/17 07:59 01/01/17 07:59 Microbiology 12/28/16 07:55 Gram Stain - Final Foot - Bone Laboratory Results 01/01/17 04:55 01/01/17 04:55 12/31/16 01/01/17 01/02/17 05:59 05:59 05:59 Intake Total 854.4 1700 120 Output Total 4300 1350 200 Balance -3445.6 350 -80 ESR 98 MM/HR (0-20) H 12/27/16 07:40 C-Reactive Protein 35.6 mg/L (<10.0) H 12/27/16 07:40 No new microbiology - Physical Exam General Appearance: alert, no apparent distress Extremities: other (I did not take off his left boot today, as I visualized the wound nicely yesterday and things look fine.) ICD10 Worksheet Patient Problems: Problems Problem Status Onset Diabetic foot infection Acute Osteomyelitis of left foot Acute
--- NOTE | 2017-01-01 10:31 | SOAPPROG ---
SOAP Progress Note Assessment/Plan: Assessment/Plan: ALYSON: likely had ATN in setting of hypotension, now seems to be improved, Cr peaked at 3.7 and started to improve to 3.4, but back to 3.6 today. Baseline appears to be 1.3. Noted that he has had 9.25L UOP in the past three days. Lytes ok. - No need for HD at this time. - Will recheck UA, urine lytes, urine protein. - Will give a small fluid bolus today as he has lots a lot of fluid through his UOP. - Will continue to monitor for renal recovery. Proteinuria: pt had a spot urine protein of 5g last month, basic serologies negative, baseline Cr 1.3. Will need nephrology f/u after discharge. Access: would leave catheter for now, if continues to improve then will be able to remove in next 1-2 days. Subjective: No acute events overnight. Pt feeling well, no breathing problems on 2L NC, no swelling in legs, having UOP but down to 1350ml in past 24 hours, had 7900ml out the two days prior. He has no complaints this am. Objective: Vital Signs Temp Pulse Resp BP Pulse Ox 36.7 C 73 16 154/81 H 92 01/01/17 07:59 01/01/17 07:59 01/01/17 07:59 01/01/17 07:59 01/01/17 07:59 Microbiology 12/28/16 07:55 Gram Stain - Final Foot - Bone Laboratory Results 01/01/17 04:55 01/01/17 04:55 12/31/16 01/01/17 01/02/17 05:59 05:59 05:59 Intake Total 854.4 1700 120 Output Total 4300 1350 200 Balance -3445.6 350 -80 PT 16.4 SEC (12.0-15.0) H 12/29/16 15:53 INR 1.32 (0.83-1.16) H 12/29/16 15:53 General: alert and oriented, no acute distress Eyes; EOMI, PERRL OP: Clear CV: RRR Resp: nonlabored respirations on 2L NC Abd: SOft, NT Ext: no edema Neuro; CN II-XII grossly intact, no asterixis Psych: cooperative, approrpiate mood and affect Access: R IJ temp cath ICD10 Worksheet Patient Problems: Problems Problem Status Onset Diabetic foot infection Acute Osteomyelitis of left foot Acute
--- NOTE | 2017-01-01 10:51 | SOAPPROG ---
SOAP Progress Note Assessment/Plan: Assessment: POD # 4 s/p L transmetatarsal amputation Cr stable, keeping dialysis catheter in place until Cr starts trending down. discontinue per nephrology Continue incisional wound vac at 75 mm Hg. Can dc wound vac on 01/03 or at time of discharge (whichever is first) Abx per ID, sensitive to Zosyn, still awaiting path to see if negative margins for osteo. If positive, Benoit will need a BKA Ambulate with cam boot S: Feeling well. No pain O: No evidence of infection by catheter Wound vac to suction Plan: 12/29/16 08:27 12/30/16 13:00 12/31/16 07:54 12/31/16 13:41 01/01/17 10:51 Objective: Vital Signs Temp Pulse Resp BP Pulse Ox 36.7 C 73 16 154/81 H 92 01/01/17 07:59 01/01/17 07:59 01/01/17 07:59 01/01/17 07:59 01/01/17 07:59 Microbiology 12/28/16 07:55 Gram Stain - Final Foot - Bone Laboratory Results 01/01/17 04:55 01/01/17 04:55 12/31/16 01/01/17 01/02/17 05:59 05:59 05:59 Intake Total 854.4 1700 120 Output Total 4300 1350 200 Balance -3445.6 350 -80 PT 16.4 SEC (12.0-15.0) H 12/29/16 15:53 INR 1.32 (0.83-1.16) H 12/29/16 15:53 ICD10 Worksheet Patient Problems: Problems Problem Status Onset Diabetic foot infection Acute Osteomyelitis of left foot Acute
[2017-01-01 12:34] LABS: COLOR YELLOW; LEUKOCYTE ESTERASE,URINE NEGATIVE (NEGATIVE); NITRITE,URINE NEGATIVE (NEGATIVE)
[2017-01-01 12:37] LABS: RANDOM URINE PROTEIN 132 mg/dL (0-11)
[2017-01-01 12:41] LABS: BACTERIA TRACE /hpf (NONE SEEN); MUCUS TRACE /lpf (NONE-1+)
--- NOTE | 2017-01-01 13:15 | HOSPPROG ---
Hospitalist Progress Note Assessment/Plan: * left foot osteomyelitis status post transmetatarsal amputation * awaiting final path to look at margins * Infectious Disease following * On Zosyn, Citrobacter * acute hypoxic respiratory failure * Much better * Due to fluid overload * acute on chronic renal failure * creatinine little bit worse * Good urine output * Does still have dialysis catheter in but never used * Nephrology following * acute diastolic CHF exacerbation? * Fluid overload could have been from renal failure * Echo looks okay * acute encephalopathy * Resolved * peripheral vascular disease * type 2 diabetes * Continue insulin * severe sepsis * Resolved * Did require pressors * DVT prophylaxis * Heparin Subjective: No new complaints Objective: Vital Signs Temp Pulse Resp BP Pulse Ox 36.7 C 73 16 154/81 H 92 01/01/17 07:59 01/01/17 07:59 01/01/17 07:59 01/01/17 07:59 01/01/17 07:59 Microbiology 12/28/16 07:55 Gram Stain - Final Foot - Bone Laboratory Results 01/01/17 04:55 01/01/17 04:55 12/31/16 01/01/17 01/02/17 05:59 05:59 05:59 Intake Total 854.4 1700 120 Output Total 4300 1350 200 Balance -3445.6 350 -80 PT 16.4 SEC (12.0-15.0) H 12/29/16 15:53 INR 1.32 (0.83-1.16) H 12/29/16 15:53 - Physical Exam Constitutional: no apparent distress, appears nourished, not in pain Eyes: anicteric sclera, EOMI Ears, Nose, Mouth, Throat: moist mucous membranes, hearing normal Cardiovascular: regular rate and rhythym, no murmur, rub, or gallop Respiratory: no respiratory distress, no rales or rhonchi, clear to auscultation Skin: warm Musculoskeletal: other ( wound VAC in place left foot) Neurologic: AAOx3 Psychiatric: interacting appropriately, not anxious, not encephalopathic, thought process linear ICD10 Worksheet Patient Problems: Problems Problem Status Onset Diabetic foot infection Acute Osteomyelitis of left foot Acute
[2017-01-01 13:43] LABS: EOSMR EOSINOPHILS NO EOS SEEN (NO EOS SEEN); EOSMR EPITHELIAL CELLS NO EPITH CELLS SEEN
[2017-01-01 13:44] LABS: EOSMR PMNS FEW PMN CELLS; EOSMR RBCS MODERATE RBCS
[2017-01-01] MEDS: NS 1,000 ML IV SCH ×2 (15:22→16:14)
[2017-01-01] MEDS ORDERED: INSULIN GLARGINE 100 UNITS/ML SYRINGE SC ONE (16:00)
[2017-01-01] MEDS: ALTEPLASE 2 MG VIAL IVP PRN ×2 (16:23→17:23)
[2017-01-01] MEDS: ERTAPENEM 0.5 GM in NS 50 ML IV SCH (17:15)
[2017-01-01] MEDS: CYCLOBENZAPRINE 10 MG TAB PO SCH (21:17)
[2017-01-02] MEDS: HYDROCODONE/APAP 5/325 TAB PO PRN (04:10)
[2017-01-02] MEDS: HEPARIN 5,000 UNIT/0.5 ML SYR SC SCH ×3 (05:16→22:18)
[2017-01-02] MEDS: ASPIRIN EC 81 MG TAB PO SCH (08:58)
[2017-01-02] MEDS: GABAPENTIN 300 MG CAP PO SCH ×3 (08:58→22:18)
[2017-01-02] MEDS: POLYETHYLENE GLYCOL 3350 17 GM PKT PO PRN (08:58)
[2017-01-02] MEDS: SENNOSIDES/DOCUSATE SODIUM TAB PO SCH ×2 (08:58→22:18)
[2017-01-02] MEDS: INSULIN REGULAR, HUMAN 100 UNIT/1 ML VIAL STANDARD SC SCH ×4 (08:59→22:18)
[2017-01-02] MEDS ORDERED: INSULIN GLARGINE 100 UNITS/ML SYRINGE SC SCH (09:00)
[2017-01-02 09:25] LABS: % IMMATURE GRANULYOCYTES 0.5 % (0.0-1.1); ABSOLUTE IMMATURE GRANULOCYTES 0.04 10^3/uL (0.00-0.10); ADD DIFF? NO; ADD MORPH? NO; ADD SCAN? NO; ATYPICAL LYMPHOCYTE FLAG 10 (0-99); FRAGMENT RBC FLAG 0 (0-99); HEMATOCRIT 25.9 % (40.0-51.0); HEMOGLOBIN 8.6 g/dL (13.7-17.5); LEFT SHIFT FLG 0 (0-99); LIPEMIA HEMOLYSIS FLAG 80 (0-99); MEAN CELL HEMOGLOBIN CONCENTR. 33.2 g/dL (32.4-36.7); MEAN CELL VOLUME 87.2 fL (81.5-99.8); MEAN PLATELET VOLUME 9.4 fL (8.7-11.7); PLATELET CLUMPS FLAG 0 (0-99); PLATELET COUNT 336 10^3/uL (150-400); RED BLOOD CELL COUNT 2.97 10^6/uL (4.40-6.38); RED CELL DISTRIBUTION WIDTH 12.7 % (11.5-15.2)
[2017-01-02 09:42] LABS: ALANINE AMINOTRANSFERASE 35 IU/L (21-72); ALBUMIN 2.5 g/dL (3.5-5.0); ALKALINE PHOSPHATASE 254 IU/L (38-126); ANION GAP 7 mEq/L (8-16); ASPARTATE AMINOTRANSFERASE 24 IU/L (17-59); BILIRUBIN,TOTAL 0.6 mg/dL (0.1-1.4); CALCIUM 8.1 mg/dL (8.5-10.4); CARBON DIOXIDE 26 mEq/l (22-31); CHLORIDE 102 mEq/L (97-110); CREATININE 3.2 mg/dL (0.7-1.3); GLOMERULAR FILTRATION RATE 20; GLUCOSE 91 mg/dL (70-100); POTASSIUM 4.6 mEq/L (3.5-5.2); SODIUM 135 mEq/L (134-144); TOTAL PROTEIN 5.7 g/dL (6.3-8.2)
--- NOTE | 2017-01-02 13:45 | HOSPPROG ---
Hospitalist Progress Note Assessment/Plan: * left foot osteomyelitis status post transmetatarsal amputation * awaiting final path to look at margins * Infectious Disease following * On Zosyn, Citrobacter * acute hypoxic respiratory failure * Much better * Due to fluid overload * acute on chronic renal failure * creatinine little bit better * Good urine output * Does still have dialysis catheter in but never used * Nephrology following * acute diastolic CHF exacerbation? * Fluid overload could have been from renal failure * Echo looks okay * acute encephalopathy * Resolved * peripheral vascular disease * type 2 diabetes * Continue insulin * severe sepsis * Resolved * Did require pressors * DVT prophylaxis * Heparin Subjective: No new complaints Objective: Vital Signs Temp Pulse Resp BP Pulse Ox 36.8 C 72 14 133/72 H 97 01/02/17 07:11 01/02/17 07:11 01/02/17 07:11 01/02/17 07:11 01/02/17 07:11 Laboratory Results 01/02/17 09:15 01/02/17 09:15 01/01/17 01/02/17 01/03/17 05:59 05:59 05:59 Intake Total 1700 2570 Output Total 1350 970 Balance 350 1600 PT 16.4 SEC (12.0-15.0) H 12/29/16 15:53 INR 1.32 (0.83-1.16) H 12/29/16 15:53 - Physical Exam Constitutional: no apparent distress, appears nourished, not in pain Eyes: anicteric sclera, EOMI Ears, Nose, Mouth, Throat: moist mucous membranes, hearing normal Cardiovascular: regular rate and rhythym, no murmur, rub, or gallop Respiratory: no respiratory distress, no rales or rhonchi, clear to auscultation Gastrointestinal: normoactive bowel sounds, soft, non-tender abdomen Skin: warm Neurologic: AAOx3 Psychiatric: interacting appropriately, not anxious, not encephalopathic, thought process linear ICD10 Worksheet Patient Problems: Problems Problem Status Onset Diabetic foot infection Acute Osteomyelitis of left foot Acute
[2017-01-02] MEDS: LACTULOSE 20 GM/30 ML UDCUP PO PRN (15:54)
[2017-01-02] MEDS: ERTAPENEM 0.5 GM in NS 50 ML IV SCH (17:04)
--- NOTE | 2017-01-02 17:05 | SOAPPROG ---
SOAP Progress Note Assessment/Plan: Assessment: POD # 5 s/p L transmetatarsal amputation Cr stable, keeping dialysis catheter in place until Cr starts trending down. down today. discontinue per nephrology Continue incisional wound vac at 75 mm Hg. Can dc wound vac on 01/03 or at time of discharge (whichever is first) Abx per ID, sensitive to Zosyn, still awaiting path to see if negative margins for osteo. If positive, Benoit will need a BKA Consiptation - consider go lytely. I asked for this to be discussed with hospitalists due to cr - Ambulate with nicki lebron S: crying due to abdominal cramps. Soft stool in rectal vault O: No evidence of infection by catheter Wound vac to suction Plan: 12/29/16 08:27 12/30/16 13:00 12/31/16 07:54 12/31/16 13:41 01/01/17 10:51 01/02/17 17:03 Objective: Vital Signs Temp Pulse Resp BP Pulse Ox 36.8 C 91 16 159/84 H 91 L 01/02/17 15:29 01/02/17 15:29 01/02/17 15:29 01/02/17 15:29 01/02/17 15:29 Microbiology 12/28/16 07:55 Gram Stain - Final Foot - Bone Laboratory Results 01/02/17 09:15 01/02/17 09:15 01/01/17 01/02/17 01/03/17 05:59 05:59 05:59 Intake Total 1700 2570 Output Total 1350 970 Balance 350 1600 PT 16.4 SEC (12.0-15.0) H 12/29/16 15:53 INR 1.32 (0.83-1.16) H 12/29/16 15:53 ICD10 Worksheet Patient Problems: Problems Problem Status Onset Diabetic foot infection Acute Osteomyelitis of left foot Acute
--- NOTE | 2017-01-02 17:23 | SOAPPROG ---
SOAP Progress Note Assessment/Plan: Assessment/Plan: ALYSON: likely had ATN in setting of hypotension, now seems to be improved, Cr peaked at 3.7 and started to improve to 3.4, but back to 3.6 yesterday. Baseline appears to be 1.3. After getting a little fluid back, Cr down to 3.2 today, lytes ok. - No need for HD at this time. - Will continue to monitor for renal recovery. - Will leave dialysis catheter in today, may be able to remove tomorrow if he has continued improvement. Proteinuria: pt had a spot urine protein of 5g last month, basic serologies negative, baseline Cr 1.3. Urine PCR with 3.7g proteinuria on my check yesterday. Will need nephrology f/u after discharge. Access: would leave catheter for now, if continues to improve then will be able to remove in next 1-2 days. Subjective: No acute events overnight. Pt notes that he is having constipation that is very bothersome to him. He is breathing comfortably. Had 970ml UOP yesterday. Objective: Vital Signs Temp Pulse Resp BP Pulse Ox 36.8 C 91 16 159/84 H 91 L 01/02/17 15:29 01/02/17 15:29 01/02/17 15:29 01/02/17 15:29 01/02/17 15:29 Microbiology 12/28/16 07:55 Gram Stain - Final Foot - Bone Laboratory Results 01/02/17 09:15 01/02/17 09:15 01/01/17 01/02/17 01/03/17 05:59 05:59 05:59 Intake Total 1700 2570 Output Total 1350 970 Balance 350 1600 PT 16.4 SEC (12.0-15.0) H 12/29/16 15:53 INR 1.32 (0.83-1.16) H 12/29/16 15:53 General: alert and oriented, no acute distress Eyes; EOMI, PERRL OP: CLear CV: RRR Resp: nonlabored respirations on NC Abd: Soft, slightly distended, mildly TTP with no guarding or rebound or rigidity Ext: no edema Psych: cooperative, appropriate mood and affect Neuro: CN II-XII grossly intact, no asterixis Access; R IJ temp cath ICD10 Worksheet Patient Problems: Problems Problem Status Onset Diabetic foot infection Acute Osteomyelitis of left foot Acute
[2017-01-02] MEDS: CYCLOBENZAPRINE 10 MG TAB PO SCH (22:18)
[2017-01-03] MEDS: HEPARIN 5,000 UNIT/0.5 ML SYR SC SCH ×3 (05:13→21:31)
[2017-01-03 05:45] LABS: ANION GAP 6 mEq/L (8-16); CARBON DIOXIDE 24 mEq/l (22-31); CHLORIDE 103 mEq/L (97-110); CREATININE 2.8 mg/dL (0.7-1.3); GLOMERULAR FILTRATION RATE 24; GLUCOSE 88 mg/dL (70-100); POTASSIUM 4.5 mEq/L (3.5-5.2); SODIUM 133 mEq/L (134-144)
--- NOTE | 2017-01-03 08:35 | SOAPPROG ---
SOAP Progress Note Assessment/Plan: Assessment: POD #6 s/p L transmetatarsal amputation Cr stable Removed wound vac. Dry dressing prn. May shower with wound protected DC neck catheter if ok with nephrology Constipation improved Ambulate with cam boot Dispo:home when okay by hospitalists. RTC 1 week S: abdomen feels much better O: No evidence of infection by catheter incision cdi, some movement at ankle Objective: Vital Signs Temp Pulse Resp BP Pulse Ox 36.6 C 79 12 152/90 H 92 01/03/17 07:02 01/03/17 07:02 01/03/17 07:02 01/03/17 07:02 01/03/17 07:02 Microbiology 12/29/16 01:30 Blood Culture - Final Blood 12/29/16 01:30 Blood Culture - Final Blood 12/28/16 07:55 Gram Stain - Final Foot - Bone Laboratory Results 01/02/17 09:15 01/03/17 05:20 01/02/17 01/03/17 01/04/17 05:59 05:59 05:59 Intake Total 2570 1150 Output Total 970 550 1 Balance 1600 600 -1 PT 16.4 SEC (12.0-15.0) H 12/29/16 15:53 INR 1.32 (0.83-1.16) H 12/29/16 15:53 ICD10 Worksheet Patient Problems: Problems Problem Status Onset Diabetic foot infection Acute Osteomyelitis of left foot Acute
[2017-01-03] MEDS: GABAPENTIN 300 MG CAP PO SCH ×3 (09:40→21:31)
[2017-01-03] MEDS: ASPIRIN EC 81 MG TAB PO SCH (09:40)
[2017-01-03] MEDS: INSULIN REGULAR, HUMAN 100 UNIT/1 ML VIAL STANDARD SC SCH ×4 (10:01→21:32)
[2017-01-03] MEDS: SENNOSIDES/DOCUSATE SODIUM TAB PO SCH ×2 (10:01→20:24)
--- NOTE | 2017-01-03 10:28 | PCMIDPN ---
Assessment/Plan: Assessment/Plan: 1. Left foot osteomyelitis-s/p TMA -Cx with citrobacter and finegoldia -currently on Invanz therapy -awaiting path to determine length of atbx therapy - 2. Loose stools -given stools softeners yesterday -monitor closely for ongoing diarrhea vijay in light of recent atbx history. 3. Renal insufficiency: - improving slowly. on Renal dosing of invanz. Meds invanz 500mg daily- 12/31/16 Subjective: Afebrile. c/o some abd pain today and several bouts of watery stools since last night. pt was given several stool softeners yesterday and had to be digitally disimpacted. denies nausea. hasn't eaten this morning yet. denies cough, sob. foot is ok. Objective: Vital Signs Temp Pulse Resp BP Pulse Ox 36.6 C 79 12 152/90 H 92 01/03/17 07:02 01/03/17 07:02 01/03/17 07:02 01/03/17 07:02 01/03/17 07:02 Microbiology 12/29/16 01:30 Blood Culture - Final Blood 12/29/16 01:30 Blood Culture - Final Blood 12/28/16 07:55 Gram Stain - Final Foot - Bone Laboratory Results 01/02/17 09:15 01/03/17 05:20 01/02/17 01/03/17 01/04/17 05:59 05:59 05:59 Intake Total 2570 1150 Output Total 970 550 1 Balance 1600 600 -1 ESR 98 MM/HR (0-20) H 12/27/16 07:40 C-Reactive Protein 35.6 mg/L (<10.0) H 12/27/16 07:40 - Physical Exam General Appearance: alert, no apparent distress Respiratory: lungs clear Cardiac/Chest: regular rate, rhythm Extremities: No swelling Abdomen: normal bowel sounds, soft, tender (to palpate in left lower abdomen), No distended Skin: other (left foot: dressing in place), No erythema ICD10 Worksheet Patient Problems: Problems Problem Status Onset Diabetic foot infection Acute Osteomyelitis of left foot Acute
--- NOTE | 2017-01-03 12:35 | SOAPPROG ---
SOAP Progress Note Assessment/Plan: Assessment: 1. ALYSON due to ATN Steady improvement. Cr peaked at 3.7. Line dc'd without complication. Pt advised to remain resting in bed for 1 hour. 2. Osteomyelitis ID note reviewed. 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 4. HTN Begin CCB now, but ultimately needs ACEI if K tolerates 5. Mild hyperkalemia Increased K,, follow Plan: 01/03/17 12:30 01/03/17 12:33 Subjective: Doing pretty well Objective: Vital Signs Temp Pulse Resp BP Pulse Ox 36.6 C 79 12 152/90 H 94 01/03/17 07:02 01/03/17 07:02 01/03/17 07:02 01/03/17 07:02 01/03/17 10:36 Microbiology 12/29/16 01:30 Blood Culture - Final Blood 12/29/16 01:30 Blood Culture - Final Blood 12/28/16 07:55 Gram Stain - Final Foot - Bone Laboratory Results 01/02/17 09:15 01/03/17 05:20 01/02/17 01/03/17 01/04/17 05:59 05:59 05:59 Intake Total 2570 1150 Output Total 970 550 1 Balance 1600 600 -1 PT 16.4 SEC (12.0-15.0) H 12/29/16 15:53 INR 1.32 (0.83-1.16) H 12/29/16 15:53 Physical Exam - Physical Exam General Appearance: no apparent distress Respiratory: lungs clear Cardiac/Chest: regular rate, rhythm Extremities: other (foot with dressing) ICD10 Worksheet Patient Problems: Problems Problem Status Onset Diabetic foot infection Acute Osteomyelitis of left foot Acute
--- NOTE | 2017-01-03 14:37 | HOSPPROG ---
Hospitalist Progress Note Assessment/Plan: * left foot osteomyelitis status post transmetatarsal amputation * awaiting final path to look at margins * Infectious Disease following * On Zosyn, Citrobacter * acute hypoxic respiratory failure * Much better * Due to fluid overload * acute on chronic renal failure * creatinine improving * Good urine output * Nephrology following * acute diastolic CHF exacerbation? * Fluid overload could have been from renal failure * Echo looks okay * acute encephalopathy * Resolved * peripheral vascular disease * type 2 diabetes * Continue insulin * severe sepsis * Resolved * Did require pressors * DVT prophylaxis * Heparin Subjective: Had some diarrhea after stool softeners. Some mild abdominal pain but seems to be getting better Objective: Vital Signs Temp Pulse Resp BP Pulse Ox 36.6 C 79 12 152/90 H 94 01/03/17 07:02 01/03/17 07:02 01/03/17 07:02 01/03/17 07:02 01/03/17 10:36 Microbiology 12/28/16 07:55 Gram Stain - Final Foot - Bone 12/29/16 01:30 Blood Culture - Final Blood 12/29/16 01:30 Blood Culture - Final Blood Laboratory Results 01/02/17 09:15 01/03/17 05:20 01/02/17 01/03/17 01/04/17 05:59 05:59 05:59 Intake Total 2570 1150 Output Total 970 550 1 Balance 1600 600 -1 PT 16.4 SEC (12.0-15.0) H 12/29/16 15:53 INR 1.32 (0.83-1.16) H 12/29/16 15:53 - Physical Exam Constitutional: no apparent distress, appears nourished, not in pain Eyes: anicteric sclera, EOMI Ears, Nose, Mouth, Throat: moist mucous membranes, hearing normal Cardiovascular: regular rate and rhythym Respiratory: no respiratory distress Gastrointestinal: normoactive bowel sounds, soft, non-tender abdomen, no palpable masses Skin: warm Neurologic: AAOx3 Psychiatric: interacting appropriately, not anxious, not encephalopathic, thought process linear ICD10 Worksheet Patient Problems: Problems Problem Status Onset Diabetic foot infection Acute Osteomyelitis of left foot Acute
[2017-01-03] MEDS: ERTAPENEM 0.5 GM in NS 50 ML IV SCH (17:13)
[2017-01-03] MEDS: HYDROCODONE/APAP 5/325 TAB PO PRN (18:34)
[2017-01-03] MEDS: CYCLOBENZAPRINE 10 MG TAB PO SCH (20:23)
[2017-01-04] MEDS: HYDROCODONE/APAP 5/325 TAB PO PRN ×2 (04:43→21:16)
[2017-01-04] MEDS: HEPARIN 5,000 UNIT/0.5 ML SYR SC SCH ×3 (04:50→21:15)
[2017-01-04 06:48] LABS: ANION GAP 8 mEq/L (8-16); CALCIUM 8.1 mg/dL (8.5-10.4); CARBON DIOXIDE 25 mEq/l (22-31); CHLORIDE 102 mEq/L (97-110); CREATININE 2.5 mg/dL (0.7-1.3); GLOMERULAR FILTRATION RATE 27; GLUCOSE 190 mg/dL (70-100); POTASSIUM 4.8 mEq/L (3.5-5.2); SODIUM 135 mEq/L (134-144)
[2017-01-04] MEDS: GABAPENTIN 300 MG CAP PO SCH ×3 (09:17→21:15)
[2017-01-04] MEDS: ASPIRIN EC 81 MG TAB PO SCH (09:17)
[2017-01-04] MEDS: SENNOSIDES/DOCUSATE SODIUM TAB PO SCH ×2 (09:17→21:16)
[2017-01-04] MEDS: INSULIN REGULAR, HUMAN 100 UNIT/1 ML VIAL STANDARD SC SCH ×4 (09:20→21:15)
--- NOTE | 2017-01-04 09:58 | SOAPPROG ---
SOAP Progress Note Assessment/Plan: Assessment: 1. ALYSON. Ischemic ATN due to severe hypotension. HD catheter out. Creat improving daily, good uop. 2. CKD. Had 5-10g proteinuria on spot urine last month. B/l creat 1.3. Basic seros neg. F/u in neph clinic after d/c. Left card. 3. Osteomyelitis. S/p L TMA. Continue invanz. Duration per ID. Plan: 12/30/16 08:57 12/30/16 09:04 12/30/16 09:05 01/04/17 09:55 01/04/17 09:56 01/04/17 09:57 Subjective: Progressing slowly with PT per RN. Denies other complaints. Objective: Vital Signs Temp Pulse Resp BP Pulse Ox 36.6 C 72 16 134/75 H 95 01/04/17 08:00 01/04/17 08:00 01/04/17 08:00 01/04/17 09:16 01/04/17 08:00 Microbiology 12/28/16 07:55 Gram Stain - Final Foot - Bone 12/29/16 01:30 Blood Culture - Final Blood 12/29/16 01:30 Blood Culture - Final Blood Laboratory Results 01/02/17 09:15 01/04/17 04:50 01/03/17 01/04/17 01/05/17 05:59 05:59 05:59 Intake Total 1150 775 Output Total 550 1451 Balance 600 -676 PT 16.4 SEC (12.0-15.0) H 12/29/16 15:53 INR 1.32 (0.83-1.16) H 12/29/16 15:53 Comfortable, in bed, on NC O2 RRR, II/ ZAC CTAB Abdom soft, nt No edema L TMA ICD10 Worksheet Patient Problems: Problems Problem Status Onset Diabetic foot infection Acute Osteomyelitis of left foot Acute
--- NOTE | 2017-01-04 16:12 | HOSPPROG ---
Hospitalist Progress Note Assessment/Plan: * left foot osteomyelitis status post transmetatarsal amputation * awaiting final path to look at margins * Infectious Disease following * On Zosyn, Citrobacter * acute hypoxic respiratory failure * resolved * Due to fluid overload * acute on chronic renal failure * creatinine improving * Good urine output * Nephrology following * acute diastolic CHF exacerbation? * Fluid overload could have been from renal failure * Echo looks okay * acute encephalopathy * Resolved * peripheral vascular disease * type 2 diabetes * Continue insulin * severe sepsis * Resolved * Did require pressors * DVT prophylaxis * Heparin Subjective: no new complaints. No abdominal pain or diarrhea Objective: Vital Signs Temp Pulse Resp BP Pulse Ox 36.9 C 83 18 149/73 H 90 L 01/04/17 15:37 01/04/17 15:37 01/04/17 15:37 01/04/17 15:37 01/04/17 15:37 Microbiology 12/28/16 07:55 Gram Stain - Final Foot - Bone Anaerobic Culture - Final Citrobacter Koseri Finegoldia [facility] Laboratory Results 01/02/17 09:15 01/04/17 04:50 01/03/17 01/04/17 01/05/17 05:59 05:59 05:59 Intake Total 1150 775 450 Output Total 550 1451 Balance 600 -676 450 PT 16.4 SEC (12.0-15.0) H 12/29/16 15:53 INR 1.32 (0.83-1.16) H 12/29/16 15:53 - Physical Exam Constitutional: no apparent distress, appears nourished, not in pain Eyes: anicteric sclera, EOMI Ears, Nose, Mouth, Throat: moist mucous membranes, hearing normal Cardiovascular: regular rate and rhythym Respiratory: no respiratory distress Gastrointestinal: normoactive bowel sounds, soft, non-tender abdomen, no palpable masses Neurologic: AAOx3 ICD10 Worksheet Patient Problems: Problems Problem Status Onset Diabetic foot infection Acute Osteomyelitis of left foot Acute
--- NOTE | 2017-01-04 16:15 | PCMIDPN ---
Assessment/Plan: Assessment/Plan: * Left foot osteomyelitis status post TMA: Cultures with growth of Citrobacter and Finegoldia. Bone pathology is currently pending to assess status of margins. Continue Invanz pending pathology report. If margins are negative for osteomyelitis, will discontinue antibiotics as amputation should be curative. * Diarrhea: Improved today. Continue to observe. 01/04/17 16:13 Subjective: No further diarrhea since yesterday. No significant foot pain. Objective: Vital Signs Temp Pulse Resp BP Pulse Ox 36.9 C 83 18 149/73 H 90 L 01/04/17 15:37 01/04/17 15:37 01/04/17 15:37 01/04/17 15:37 01/04/17 15:37 Microbiology 12/28/16 07:55 Gram Stain - Final Foot - Bone Anaerobic Culture - Final Citrobacter Koseri Finegoldia [facility] Laboratory Results 01/02/17 09:15 01/04/17 04:50 01/03/17 01/04/17 01/05/17 05:59 05:59 05:59 Intake Total 1150 775 450 Output Total 550 1451 Balance 600 -676 450 ESR 98 MM/HR (0-20) H 12/27/16 07:40 C-Reactive Protein 35.6 mg/L (<10.0) H 12/27/16 07:40 Ertapenem # 5 - Physical Exam General Appearance: alert, no apparent distress EENT: No scleral icterus, No thrush Respiratory: lungs clear, No respiratory distress Cardiac/Chest: regular rate, rhythm Extremities: inflammation (Left foot incision intact without drainage; small area of erythema consistent with hyperemia medially) Abdomen: non-tender, No distended ICD10 Worksheet Patient Problems: Problems Problem Status Onset Diabetic foot infection Acute Osteomyelitis of left foot Acute
[2017-01-04] MEDS: ERTAPENEM 1 GM in NS 100 ML IV SCH (16:36)
--- NOTE | 2017-01-04 19:22 | SOAPPROG ---
SOAP Progress Note Assessment/Plan: Assessment: 51yo M POD #7 s/p L transmetatarsal amputation Final bone margin path pending Cr improved Change LLE dressing PRN - 4x4, kerlix May shower with wound protected Ambulate with cam boot PT/OT Dispo: path pending. d/c per hospitalists. discussed c Dr. Maurer S: constipation resolved. Pain controlled. O: laying in bed, comfortable, NAD No increased WOB No peripheral edema Incision CDI, dressing reapplied Objective: Vital Signs Temp Pulse Resp BP Pulse Ox 36.9 C 83 18 149/73 H 90 L 01/04/17 15:37 01/04/17 15:37 01/04/17 15:37 01/04/17 15:37 01/04/17 15:37 Microbiology 12/28/16 07:55 Gram Stain - Final Foot - Bone Anaerobic Culture - Final Citrobacter Koseri Finegoldia [facility] Laboratory Results 01/02/17 09:15 01/04/17 04:50 01/03/17 01/04/17 01/05/17 05:59 05:59 05:59 Intake Total 1150 775 450 Output Total 550 1451 Balance 600 -676 450 PT 16.4 SEC (12.0-15.0) H 12/29/16 15:53 INR 1.32 (0.83-1.16) H 12/29/16 15:53 ICD10 Worksheet Patient Problems: Problems Problem Status Onset Diabetic foot infection Acute Osteomyelitis of left foot Acute
[2017-01-04] MEDS: CYCLOBENZAPRINE 10 MG TAB PO SCH (21:14)
[2017-01-05] MEDS: HEPARIN 5,000 UNIT/0.5 ML SYR SC SCH ×3 (05:17→21:37)
[2017-01-05 06:52] LABS: ANION GAP 6 mEq/L (8-16); CALCIUM 8.2 mg/dL (8.5-10.4); CARBON DIOXIDE 25 mEq/l (22-31); CHLORIDE 106 mEq/L (97-110); CREATININE 2.2 mg/dL (0.7-1.3); GLOMERULAR FILTRATION RATE 32; GLUCOSE 143 mg/dL (70-100); POTASSIUM 5.1 mEq/L (3.5-5.2); SODIUM 137 mEq/L (134-144)
[2017-01-05] MEDS: HYDROCODONE/APAP 5/325 TAB PO PRN ×2 (10:11→21:36)
[2017-01-05] MEDS: INSULIN REGULAR, HUMAN 100 UNIT/1 ML VIAL STANDARD SC SCH ×4 (10:12→21:37)
[2017-01-05] MEDS: ASPIRIN EC 81 MG TAB PO SCH (10:12)
[2017-01-05] MEDS: SENNOSIDES/DOCUSATE SODIUM TAB PO SCH ×2 (10:12→21:36)
[2017-01-05] MEDS: GABAPENTIN 300 MG CAP PO SCH ×3 (10:12→21:36)
--- NOTE | 2017-01-05 11:15 | SOAPPROG ---
SOAP Progress Note Assessment/Plan: Assessment/Plan: ALYSON: likely had ATN in setting of hypotension, now seems to be improved, Cr peaked at 3.7 and started to improve to 3.4, but back to 3.6 yesterday. Baseline appears to be 1.3. After getting a little fluid back, Cr down to 2.2 today, lytes ok. - No need for HD, catheter has been pulled out. - Will continue to monitor for renal recovery. Proteinuria: pt had a spot urine protein of 5g last month, basic serologies negative, baseline Cr 1.3. Urine PCR with 3.7g proteinuria on my check on Monday. Will need nephrology f/u after discharge. HTN: will increase amlodipine to 5mg po daily. Subjective: No acute events overnight. Pt with no complaints this am, breathing comfortably , still with good UOP. Objective: Vital Signs Temp Pulse Resp BP Pulse Ox 36.7 C 69 18 144/64 H 97 01/05/17 07:50 01/05/17 07:50 01/05/17 07:50 01/05/17 07:50 01/05/17 07:50 Microbiology 12/28/16 07:55 Gram Stain - Final Foot - Bone Anaerobic Culture - Final Citrobacter Koseri Finegoldia [facility] Laboratory Results 01/02/17 09:15 01/05/17 05:30 01/04/17 01/05/17 01/06/17 05:59 05:59 05:59 Intake Total 775 750 Output Total 1451 750 Balance -676 0 PT 16.4 SEC (12.0-15.0) H 12/29/16 15:53 INR 1.32 (0.83-1.16) H 12/29/16 15:53 General: alert and oriented, no acute distress Eyes; EOMI, PERRL OP: Clear CV: RRR Resp: nonlabored respirations on NC, CTAB Abd: Soft, NT/ND Ext: no edema BLE Neuro; CN II-XII grossly intact, no asterixis Psych: cooperative, appropriate mood and affect Access: none ICD10 Worksheet Patient Problems: Problems Problem Status Onset Diabetic foot infection Acute Osteomyelitis of left foot Acute
[2017-01-05] MEDS: ERTAPENEM 1 GM in NS 100 ML IV SCH (16:35)
--- NOTE | 2017-01-05 17:09 | SOAPPROG ---
SOAP Progress Note Assessment/Plan: Assessment: s/p L transmetatarsal amputation Cr stable Ambulate with cam boot Dispo:home when okay by hospitalists. RTC 1 week S: feeling well 01/05/17 17:08 Objective: Vital Signs Temp Pulse Resp BP Pulse Ox 36.6 C 79 18 129/75 H 96 01/05/17 16:00 01/05/17 16:00 01/05/17 16:00 01/05/17 16:00 01/05/17 16:00 Microbiology 12/28/16 07:55 Gram Stain - Final Foot - Bone Anaerobic Culture - Final Citrobacter Koseri Finegoldia [facility] Laboratory Results 01/02/17 09:15 01/05/17 05:30 01/04/17 01/05/17 01/06/17 05:59 05:59 05:59 Intake Total 775 750 Output Total 1451 750 Balance -676 0 PT 16.4 SEC (12.0-15.0) H 12/29/16 15:53 INR 1.32 (0.83-1.16) H 12/29/16 15:53 ICD10 Worksheet Patient Problems: Problems Problem Status Onset Diabetic foot infection Acute Osteomyelitis of left foot Acute
--- NOTE | 2017-01-05 17:43 | PCMIDPN ---
Assessment/Plan: Assessment/Plan: * Left foot osteomyelitis status post TMA: Cultures with growth of Citrobacter and Finegoldia. Continue to await bone pathology report regarding margins. Plan discharge home tomorrow after dose of ertapenem; think this can be done if pathology is still pending with outpatient follow-up of results in event positive at which point in time antibiotic therapy could be continued. * Diarrhea: Resolved. Continue to observe. 01/05/17 17:40 Subjective: Patient without complaints. No diarrhea. No left lower extremity pain. Objective: Vital Signs Temp Pulse Resp BP Pulse Ox 36.6 C 79 18 129/75 H 96 01/05/17 16:00 01/05/17 16:00 01/05/17 16:00 01/05/17 16:00 01/05/17 16:00 Microbiology 12/28/16 07:55 Gram Stain - Final Foot - Bone Anaerobic Culture - Final Citrobacter Koseri Finegoldia Magna Laboratory Results 01/02/17 09:15 01/05/17 05:30 01/04/17 01/05/17 01/06/17 05:59 05:59 05:59 Intake Total 775 750 Output Total 1451 750 Balance -676 0 ESR 98 MM/HR (0-20) H 12/27/16 07:40 C-Reactive Protein 35.6 mg/L (<10.0) H 12/27/16 07:40 Ertapenem # 6 Bone pathology pending - Physical Exam General Appearance: alert, no apparent distress EENT: No scleral icterus Extremities: other (Left TMA site healing well without without drainage; minimal erythema medially) Abdomen: non-tender, No distended ICD10 Worksheet Patient Problems: Problems Problem Status Onset Diabetic foot infection Acute Osteomyelitis of left foot Acute
--- NOTE | 2017-01-05 18:14 | HOSPPROG ---
Hospitalist Progress Note Assessment/Plan: assessment: 51-year-old male presents for left transmetatarsal amputation complicated by severe sepsis, acute hypoxic respiratory failure, suspected diastolic congestive heart failure exacerbation Plan: 1. Severe sepsis. Resolved 2. Osteomyelitis. Patient with left foot osteomyelitis requiring left transmetatarsal amputation by Dr. Maurer - awaiting path from margins and continuing invanz in interim - d/w Dr. Villarreal, recs if path not returned tomorrow, will dc off Abx and patient can be contacted if path comes back positive 3. Acute hypoxic respiratory failure. Resolved - NOT related to patient's surgery 4. Suspected acute diastolic CHF exacerbation. Cont monitor volume 5. Metabolic acidosis. Acute, 2/2 lactic acid in setting of above 6. ALYSON. Improving, monitor lytes 7. Acute encephalopathy. Resolved 8. PVD. Chronic, resulting in osteo wound 9. DM2 w/ hyperglycemia. Placed on ISS Hospital Medicine will continue to consult in this patient's care Subjective: patient reports he is having BMs Objective: Vital Signs Temp Pulse Resp BP Pulse Ox 36.6 C 79 18 129/75 H 96 01/05/17 16:00 01/05/17 16:00 01/05/17 16:00 01/05/17 16:00 01/05/17 16:00 Microbiology 12/28/16 07:55 Gram Stain - Final Foot - Bone Anaerobic Culture - Final Citrobacter Koseri Finegoldia Magna Laboratory Results 01/02/17 09:15 01/05/17 05:30 01/04/17 01/05/17 01/06/17 05:59 05:59 05:59 Intake Total 775 750 Output Total 1451 750 Balance -676 0 PT 16.4 SEC (12.0-15.0) H 12/29/16 15:53 INR 1.32 (0.83-1.16) H 12/29/16 15:53 - Pending Discharge Pending Discharge Within 24 Hours: Yes Pending Discharge Date: 01/06/17 Pending Discharge Time: 11:00 - Physical Exam Constitutional: no apparent distress, appears nourished, not in pain Cardiovascular: No systolic murmur, No irregularly irregular, No tachycardia, No edema Respiratory: no respiratory distress, no rales or rhonchi, clear to auscultation Gastrointestinal: normoactive bowel sounds, soft, non-tender abdomen, no palpable masses Musculoskeletal: other (LLE TMA) Neurologic: AAOx3, sensation intact bilaterally, No weakness (motor 5/5 bilat) Psychiatric: interacting appropriately, not anxious, not encephalopathic, thought process linear ICD10 Worksheet Patient Problems: Problems Problem Status Onset Diabetic foot infection Acute Osteomyelitis of left foot Acute
[2017-01-05] MEDS: CYCLOBENZAPRINE 10 MG TAB PO SCH (21:36)
[2017-01-06] MEDS: HEPARIN 5,000 UNIT/0.5 ML SYR SC SCH ×2 (05:09→13:02)
[2017-01-06 05:21] LABS: % IMMATURE GRANULYOCYTES 1.6 % (0.0-1.1); ABSOLUTE IMMATURE GRANULOCYTES 0.13 10^3/uL (0.00-0.10); ADD DIFF? NO; ADD MORPH? NO; ADD SCAN? NO; ATYPICAL LYMPHOCYTE FLAG 40 (0-99); FRAGMENT RBC FLAG 0 (0-99); HEMATOCRIT 25.2 % (40.0-51.0); HEMOGLOBIN 8.1 g/dL (13.7-17.5); LEFT SHIFT FLG 10 (0-99); LIPEMIA HEMOLYSIS FLAG 80 (0-99); MEAN CELL HEMOGLOBIN 28.6 pg (27.9-34.1); MEAN CELL HEMOGLOBIN CONCENTR. 32.1 g/dL (32.4-36.7); MEAN PLATELET VOLUME 9.4 fL (8.7-11.7); PLATELET CLUMPS FLAG 0 (0-99); PLATELET COUNT 485 10^3/uL (150-400); RED BLOOD CELL COUNT 2.83 10^6/uL (4.40-6.38); RED CELL DISTRIBUTION WIDTH 12.7 % (11.5-15.2)
[2017-01-06 05:34] LABS: ANION GAP 6 mEq/L (8-16); CALCIUM 8.1 mg/dL (8.5-10.4); CARBON DIOXIDE 26 mEq/l (22-31); CHLORIDE 105 mEq/L (97-110); GLOMERULAR FILTRATION RATE 35; GLUCOSE 161 mg/dL (70-100); POTASSIUM 5.2 mEq/L (3.5-5.2); SODIUM 137 mEq/L (134-144)
[2017-01-06 07:43] VITALS: RESP 16
[2017-01-06] MEDS: INSULIN REGULAR, HUMAN 100 UNIT/1 ML VIAL STANDARD SC SCH ×3 (08:09→17:23)
[2017-01-06] MEDS: SENNOSIDES/DOCUSATE SODIUM TAB PO SCH (08:14)
[2017-01-06] MEDS: ASPIRIN EC 81 MG TAB PO SCH (08:15)
[2017-01-06] MEDS: GABAPENTIN 300 MG CAP PO SCH ×2 (08:15→17:24)
--- NOTE | 2017-01-06 08:23 | SOAPPROG ---
SOAP Progress Note Assessment/Plan: Assessment: 51yo M s/p L transmetatarsal amputation Final bone margin path pending Cr improved Change LLE dressing PRN May shower with wound protected Ambulate with cam boot PT/OT Dispo: path pending. d/c per hospitalists. he will f/u in 1 week in our office for suture removal. seen c Dr. mike S: Pain controlled. O: laying in bed, comfortable, NAD No increased WOB No peripheral edema Incision CDI, dressing reapplied 01/06/17 08:23 Objective: Vital Signs Temp Pulse Resp BP Pulse Ox 36.6 C 71 16 158/81 H 95 01/06/17 07:42 01/06/17 07:42 01/06/17 07:42 01/06/17 07:42 01/06/17 07:42 Laboratory Results 01/06/17 05:05 01/06/17 05:05 01/05/17 01/06/17 01/07/17 05:59 05:59 05:59 Intake Total 750 Output Total 750 1700 Balance 0 -1700 PT 16.4 SEC (12.0-15.0) H 12/29/16 15:53 INR 1.32 (0.83-1.16) H 12/29/16 15:53 ICD10 Worksheet Patient Problems: Problems Problem Status Onset Diabetic foot infection Acute Osteomyelitis of left foot Acute
[2017-01-06] MEDS ORDERED: amLODIPine BESYLATE 5 MG TAB PO SCH (09:00)
--- NOTE | 2017-01-06 09:49 | PCMIDPN ---
Assessment/Plan: #Left osteomyelitis at the distal metatarsals 1 and 4 s/p transmet . Pathology shows clear margin. #9days antibiotics post op. No cellulitis on exam. Course complicated by ARF on CRI, now improved. --Discharge home off antibiotic therapy and remove PICC line --follow-up with Dr. Halie Maurer, no ID follow-up needed # Renal insufficiency: CrCl 51 Meds ertapenem 1gm IV daily Subjective: patient feeling well wants to go home Objective: Vital Signs Temp Pulse Resp BP Pulse Ox 36.6 C 71 16 158/81 H 95 01/06/17 07:42 01/06/17 07:42 01/06/17 07:42 01/06/17 07:42 01/06/17 07:42 Laboratory Results 01/06/17 05:05 01/06/17 05:05 01/05/17 01/06/17 01/07/17 05:59 05:59 05:59 Intake Total 750 Output Total 750 1700 Balance 0 -1700 ESR 98 MM/HR (0-20) H 12/27/16 07:40 C-Reactive Protein 35.6 mg/L (<10.0) H 12/27/16 07:40 - Physical Exam General Appearance: alert, no apparent distress Respiratory: No accessory muscle use Extremities: other (Left trans met amp without erythema or purulence. Incision line is intact) Skin: No rash Neuro/Psych: alert, normal mood/affect, oriented x 3 - Line/s LUE PICC Lines: No drainage, No erythema ICD10 Worksheet Patient Problems: Problems Problem Status Onset Diabetic foot infection Acute Osteomyelitis of left foot Acute
[2017-01-06] MEDS: HYDROCODONE/APAP 5/325 TAB PO PRN (13:02)
--- NOTE | 2017-01-06 13:03 | SOAPPROG ---
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 -patient will need outpatient followup -he is uninsured and undocumented -I have asked him to contact our administrative office to obtain a form for financial waiver -he should qualify for [facility], but needs to complete this form to do so -he gets his care at [facility] 01/06/17 13:01 Subjective: stable overnite Objective: Vital Signs Temp Pulse Resp BP Pulse Ox 36.6 C 71 16 158/81 H 87 L 01/06/17 07:42 01/06/17 07:42 01/06/17 07:42 01/06/17 07:42 01/06/17 10:03 Laboratory Results 01/06/17 05:05 01/06/17 05:05 01/05/17 01/06/17 01/07/17 05:59 05:59 05:59 Intake Total 750 Output Total 750 1700 Balance 0 -1700 PT 16.4 SEC (12.0-15.0) H 12/29/16 15:53 INR 1.32 (0.83-1.16) H 12/29/16 15:53 Physical Exam - Physical Exam General Appearance: WD/WN, alert, no apparent distress EENT: normal ENT inspection Neck: normal inspection Respiratory: lungs clear, normal breath sounds, No respiratory distress Cardiac/Chest: regular rate, rhythm, No systolic murmur Abdomen: normal bowel sounds Extremities: other (L TMA), No swelling ICD10 Worksheet Patient Problems: Problems Problem Status Onset Diabetic foot infection Acute Osteomyelitis of left foot Acute
[2017-01-06] MEDS: POLYETHYLENE GLYCOL 3350 17 GM PKT PO PRN (13:10)
[2017-01-06] MEDS: LACTULOSE 20 GM/30 ML UDCUP PO PRN ×2 (13:10→16:19)
[2017-01-06] MEDS ORDERED: GOLYTELY 4000 ML BTL PO ONE (16:10)
--- NOTE | 2017-01-06 16:31 | PDDCSUM ---
Discharge Summary Discharge Summary: DISCHARGE SUMMARY FOLLOW-UP ITEMS: Suture removal next week DATE OF ADMISSION: 12/27/2016 DATE OF DISCHARGE: [birth year]06/1971 DISCHARGE DIAGNOSES: 1. Severe sepsis present on admission 2. Osteomyelitis left foot 3. Acute hypoxic respiratory failure 4. Suspected acute diastolic CHF exacerbation 5. Acute metabolic acidosis 6. Acute kidney injury 7. Acute encephalopathy 8. Chronic peripheral vascular disease 9. Diabetes mellitus type 2 with hyperglycemia 10. Constipation 11. Acute blood loss anemia 12. Suspected atelectasis CONSULTATIONS: General surgery by Dr. Maurer Nephrology Pulmonary Critical Care PROCEDURES / IMAGIN12/28/2016 left foot TMA CHIEF COMPLAINT: Left foot pain SUBJECTIVE: Patient is feeling well at time of discharge, he is drinking GoLYTELY to move his bowels PHYSICAL EXAM ON DISCHARGE: Systolic blood pressure 100, heart rate 70, afebrile overnight, breathing well on room air, bowel sounds are present, abdomen is soft mildly distended, nontender LABS ON DISCHARGE: Creatinine 2, BUN 42, potassium 5.2, white blood count 8100, hemoglobin 8.1 HOSPITAL COURSE BY PROBLEM: 1. Severe sepsis. Evidenced by tachycardia, tachypnea, leukocytosis, fever, clear source of infection notably osteomyelitis with end-organ failure notably lactic acidosis, acute kidney injury, respiratory failure, resulting in autonomic dysregulation in the setting of infection. The patient did receive Levophed for hypotension and was admitted to the intensive care unit. He received IV fluids and empiric IV antibiotics. His white blood cell count has trended into the normal range is afebrile time of discharge. He received antibiotics until the pathology results demonstrated that the margins of his osteomyelitis were negative. He does not require antibiotics at time of discharge home. 2. Osteomyelitis. Patient with left foot osteomyelitis requiring left TMA by Dr. Maurer. Culture demonstrated Citrobacter and he was on Zosyn. He was subsequently adjusted to ertapenem. His hospitalization was extended secondary to pending pathology results to demonstrate that the margins were clear and the patient would no longer require antibiotics moving forward. Once the pathology results were available on 01/06, the margins demonstrated no evidence of osteo and it was safe to discharge him home not on antibiotics. The patient will follow up with Dr. Maurer next and has an appointment scheduled. 3. Acute hypoxic respiratory failure. Evidenced by a PaO2 of 37 with tachypnea , labored breathing, shortness of breath, requiring BiPAP therapy and transfer to the intensive care unit, most likely secondary to acute volume overload in suspected diastolic congestive heart failure exacerbation. The patient was weaned from BiPAP to nasal cannula. It should be noted that patient's respiratory failure was not related to his surgery but was instead related to congestive heart failure exacerbation. 4. Suspected acute diastolic congestive heart failure exacerbation. Evidenced by diffuse bilateral pulmonary infiltrates on chest x-ray in the setting of volume overload with acute kidney injury and fluid retention. The patient's respiratory status significantly improved with osmotic diuresis and an echocardiogram demonstrates diastolic dysfunction. The patient is not volume overloaded at time of discharge. 5. Suspected atelectasis. Is suspected that the patient has some compression atelectasis resulting in prolonged requirement of supplemental oxygen as well as incentive spirometer. Patient has some mild exertional hypoxia time discharge and we recommend the patient go home with an incentive spirometer and increase his mobility as tolerated. He does not currently have an indication for supplemental oxygen at time of discharge as his resting SpO2 is greater than 90%. 6. Acute metabolic acidosis. Secondary to lactic acid in the setting of above, cleared. 7. Acute kidney injury. Secondary to renal hypoperfusion in the setting of severe sepsis, hemodialysis catheter was placed the patient began os medically diuresing and has been urinating well at time of discharge. Patient was seen by Nephrology and he will not require dialysis moving forward. His creatinine is elevated at time of discharge and he may have chronic kidney disease moving forward. The patient should have repeat labs performed when he sees Dr. Maurer and these [facility] as well as Dr. Maurer. [facility] will attempt to get him follow-up. 8. Chronic peripheral vascular disease. This has resulted in patient's osteomyelitis and wound, he will require ongoing management at [facility]. 9. Diabetes mellitus type 2 with hyperglycemia. Patient's metformin and sulfonylurea were both discontinued secondary to his acute kidney injury. He will continue on a lower dose of Lantus as well as ongoing short-acting insulin and then the [facility] can reconsider oral glycemic agents at a later date. 10. Constipation. Patient had constipation secondary to immobility and he received GoLYTELY prep prior to discharge. If the patient does not move his bowels prior to this discharge, he will go home with the GoLYTELY prep and he will move his bowels intermittently. 11. Acute blood-loss anemia. Evidenced by hemoglobin decline into the low 8 range following surgery, stabilized, does not require transfusion prior to discharge. He will have a repeat CBC performed next week prior to his surgery appointment. DISCHARGE MEDICATIONS: Please see official discharge medication reconciliation sheet in chart , continue all home medications with the exception of metformin, lisinopril, glipizide, provide 40 tabs of tramadol as well as Senokot S while he is on opiate pain medication. DISCHARGE INSTRUCTIONS: Please follow up in the surgery clinic next week and have labs drawn prior to her appointment. TIME SPENT: Greater than 30 minutes were spent on direct patient care, as well as discharge planning and preparation.
[2017-01-06 16:36] VITALS: BP 125/78; PULSE 65; TEMP 97.9; O2SAT 95
[2017-01-06] MEDS: ERTAPENEM 1 GM in NS 100 ML IV SCH (17:44)
== END 2017-01-06 19:01 | disposition home or self-care (01) | DRG 853 ==
LOC: F3E 12:33 → F2N 12-29 08:16 → F3N 12-31 15:24
PROVIDERS: ADMIT Internal Medicine; ATTEND Internal Medicine
PROC: 0Y6N0Z0 Detachment at Left Foot, Complete, Open Approach (ICD-10-PCS; principal; 2016-12-28 07:15)
PROC: 02HV33Z Insertion of Infusion Device into Superior Vena Cava, Percutaneous Approach (ICD-10-PCS; 2016-12-29)
PROC: 02H633Z Insertion of Infusion Device into Right Atrium, Percutaneous Approach (ICD-10-PCS; 2016-12-29)
DX: A41.9 Sepsis, unspecified organism (principal); J96.01 Acute respiratory failure with hypoxia; I50.31 Acute diastolic (congestive) heart failure; G93.49 Other encephalopathy; E11.69 Type 2 diabetes mellitus with other specified complication; M86.172 Other acute osteomyelitis, left ankle and foot; E87.2 Acidosis; N17.9 Acute kidney failure, unspecified; D62 Acute posthemorrhagic anemia; J98.11 Atelectasis; E11.65 Type 2 diabetes mellitus with hyperglycemia; E11.51 Type 2 diabetes mellitus with diabetic peripheral angiopathy without gangrene; K59.00 Constipation, unspecified; R65.20 Severe sepsis without septic shock; Z79.84 Long term (current) use of oral hypoglycemic drugs; Z83.3 Family history of diabetes mellitus
CPT/HCPCS: 82947-QW; 96374; 97116-GP; 97162-GP; 97166-GO; 97530-GO; 97530-GP; 97535-GO; C1751; J1335; J1815; J1940; J2250; J2370; J2405; J2543; J2704; J2765; J2997; J3010; J3370

== ENCOUNTER 2018-01-08 16:13 | Emergency (ER) | payer MEDICAID, OTHER ==
--- NOTE | 2018-01-08 16:43 | EDPHY ---
General - Diagnostics Imaging: Discussed imaging studies w/ call taker Radiologist, I viewed and interpreted images myself - History History Review: I reviewed the patient's medical records Smoking Status: Never smoked Time Seen by Provider: 01/08/18 16:36 Narrative: CHIEF COMPLAINT: Right 2nd toe and foot pain HISTORY OF PRESENT ILLNESS: Patient presents with complaints of pain, redness and "my toe is black." He states that the right 2nd toe has looked abnormal for 2-3 months. It has been increasingly painful and "it smells really bad" over the past 2-3 days. No fever. No chills but the pain is severe when ambulating. Moderate at rest. No numbness. He has baseline decreased sensation of the foot that is unchanged. No fever. No other associated complaints or modifying factors. REVIEW OF SYSTEMS: Ten systems reviewed and are negative unless otherwise noted in the HPI PCP: [facility] SPECIALISTS: Dr. Halie Maurer PAST MEDICAL HISTORY: Diabetes, peripheral vascular disease, osteomyelitis, chronic kidney disease, hypertension, osteomyelitis, congestive heart failure PAST SURGICAL HISTORY: Left transmetatarsal amputation, SOCIAL HISTORY: Nonsmoker FAMILY HISTORY: Lives and works here dependently. Noncontributory EXAMINATION General Appearance: Alert, no distress Head: normocephalic, atraumatic Eyes: Pupils equal and round, no conjunctival pallor or injection ENT, Mouth: Mucous membranes moist Neck: Normal inspection, supple, non-tender Respiratory: Lungs are clear to auscultation Cardiovascular: Tachycardic rate. Regular rhythm. No murmur. palpable DP and PT pulses on the right foot and ankle Gastrointestinal: Abdomen is soft and nontender Neurological: A&O, nonfocal, antalgic gait without ataxia. Skin: Warm and dry, no rash. There is necrosis of the right 2nd toe circumferentially near the base of the proximal phalanx. There is adjacent sloughing erythema of the 3rd toe medially. There is no cellulitis, crepitus, gangrene necrosis of the right foot or ankle. Extremities: Significant tenderness of the right foot over the 2nd great toe. He does have full range of motion right ankle without deficit. The left foot is status post transmetatarsal amputation without any significant skin changes. Psychiatric: Mood and affect normal DIFFERENTIAL DIAGNOSES: Including but not limited to osteomyelitis, necrosis, gangrene, diabetic wound, diabetic stasis, peripheral vascular disease, SIRS, severe sepsis MDM: 4:43 p.m. Necrotic right 2nd toe with some adjacent sloughing of the skin of the 3rd toe medially. There is no extensive cellulitis of the lower extremity, ankle or foot. Does exquisite tenderness that area. He is tachycardic but is not yet meet SIRS criteria. Given the patient's history and previous infection, discussed with Dr. Mott. He recommends blood cultures, lactic acid full workup. And this. He is in no acute distress. Patient will likely need admission to the hospital for this 5:05 p.m. Notified by radiologist Dr. Ricks, plain film does reveal likely osteomyelitis of the 2nd toe only. 5:[address] Mott has evaluated the patient and discussed with Dr. Cristina. He will evaluate the patient. Laboratory studies unremarkable thus far. 5:[address] Cristina has evaluated the patient in the emergency department. He has discussed his consultation with Dr. Mott. Plan is for discharge home on Keflex with follow-up in Dr. Maurer's office tomorrow morning. Patient is comfortable this plan. Discharged home stable condition with this plan. SUPERVISION: Patient was evaluated and examined in conjunction with my secondary supervising physician as documented. We have both examined the patient. (Daniel Recio) Medical Decision Making: Independent physician documentation: I evaluated and participated in the management of the patient. I also evaluated the patient independently. My co-signature indicates that I have reviewed this chart and I agree with the findings and plan of care as documented. My personal H&P findings include: The patient presents to the ED for evaluation of a right 2nd gangrenous toe for the past 2-3 months. Patient has a history of peripheral vascular disease. Physical exam: 2nd toe, no significant cellulitis noted to the foot. Normal pulses noted in the right lower extremity. Dr. Cristina did evaluate the patient in the emergency department. He is currently not NPO. He has had a chronic foot infection for 2-3 months. The patient will be discharged to home and advised to follow up with his regular surgeon Dr. Maurer in the office tomorrow. He will be given a prescription for Keflex. (Kash Mott) - Diagnostics Imaging Results: Imaging Impressions Foot X-Ray 01/08/18 16:50 Impression: Osseous erosion at the distal second proximal phalanx at the PIP joint probably representing osteomyelitis. Results called and discussed with Daniel Recio on 01/08/2018, 17:06. - Objective Vital Signs: Initial Vital Signs Temperature (C) 98.1 F 01/08/18 16:18 Heart Rate 104 H 01/08/18 16:18 Respiratory Rate 16 01/08/18 16:18 Blood Pressure 104/83 H 01/08/18 16:18 O2 Sat (%) 96 01/08/18 16:18 O2 Delivery Mode Room Air Allergies/Adverse Reactions: No Known Allergies Allergy (Verified 01/08/18 16:17) Home Medications: Medication Instructions Recorded Aspirin EC [Aspirin EC 81 mg (*)] 81 mg PO DAILY 09/29/16 Gabapentin [Neurontin 300 MG (*)] 300 mg PO TID 12/27/16 Insulin Detemir [Levemir] 8 unit SQ DAILY 12/27/16 Acetaminophen [Tylenol 325mg (*)] 650 mg PO Q4HRS PRN #0 tab 01/06/17 Insulin Glargine [Lantus 100 15 units SC DAILY ml 01/06/17 UNITS/ML (*)] Sennosides/Docusate Sodium 2 tab PO BID #50 tab 01/06/17 [Senokot-S] amLODIPine BESYLATE [Norvasc 5 mg 5 mg PO DAILY #30 tab 01/06/17 (*)] traMADol [Ultram 50 mg (*)] 50 - 100 mg PO Q8HRS PRN #40 tab 01/06/17 Cephalexin [Keflex (*)] 500 mg PO QID #40 cap 01/08/18 Hydrocodone/APAP 5/325 [[place] 1 - 2 tab PO Q4H PRN #7 tab 01/08/18 5/325 (*)] Laboratory Results: Laboratory Results 01/08/18 17:10 01/08/18 17:10 01/08/18 01/08/18 01/08/18 17:10 17:10 17:10 WBC 7.73 10^3/uL 10^3/uL (3.80-9.50) RBC 3.69 10^6/uL L 10^6/uL (4.40-6.38) Hgb 10.0 g/dL L g/dL (13.7-17.5) Hct 31.0 % L % (40.0-51.0) MCV 84.0 fL fL (81.5-99.8) MCH 27.1 pg L pg (27.9-34.1) MCHC 32.3 g/dL L g/dL (32.4-36.7) RDW 14.0 % % (11.5-15.2) Plt Count 358 10^3/uL 10^3/uL (150-400) MPV 9.7 fL fL (8.7-11.7) Neut % (Auto) 62.9 % % (39.3-74.2) Lymph % (Auto) 26.0 % % (15.0-45.0) [place] % (Auto) 8.0 % % (4.5-13.0) Eos % (Auto) 2.3 % % (0.6-7.6) Baso % (Auto) 0.5 % % (0.3-1.7) Nucleat RBC Rel Count 0.0 % % (0.0-0.2) Absolute Neuts (auto) 4.86 10^3/uL 10^3/uL (1.70-6.50) Absolute Lymphs (auto) 2.01 10^3/uL 10^3/uL (1.00-3.00) Absolute Monos (auto) 0.62 10^3/uL 10^3/uL (0.30-0.80) Absolute Eos (auto) 0.18 10^3/uL 10^3/uL (0.03-0.40) Absolute Basos (auto) 0.04 10^3/uL 10^3/uL (0.02-0.10) Absolute Nucleated RBC 0.00 10^3/uL 10^3/uL (0-0.01) Immature Gran % 0.3 % % (0.0-1.1) Immature Gran # 0.02 10^3/uL 10^3/uL (0.00-0.10) ESR 67 MM/HR H MM/HR (0-20) PT 12.9 SEC SEC (12.0-15.0) INR 0.95 (0.83-1.16) APTT 30.6 SEC SEC (23.0-38.0) VBG Lactic Acid Sodium 138 mEq/L mEq/L (135-145) Potassium 4.5 mEq/L mEq/L (3.3-5.0) Chloride 107 mEq/L mEq/L (97-110) Carbon Dioxide 22 mEq/l mEq/l (22-31) Anion Gap 9 mEq/L mEq/L (8-16) BUN 40 mg/dL H mg/dL (7-23) Creatinine 1.5 mg/dL H mg/dL (0.7-1.3) Estimated GFR 49 Glucose 227 mg/dL H mg/dL (70-100) Calcium 8.3 mg/dL L mg/dL (8.5-10.4) Total Bilirubin 0.2 mg/dL mg/dL (0.1-1.4) C-Reactive Protein 14.2 mg/L H mg/L (<10.0) 01/08/18 16:54 WBC RBC Hgb Hct MCV MCH MCHC RDW Plt Count MPV Neut % (Auto) Lymph % (Auto) [place] % (Auto) Eos % (Auto) Baso % (Auto) Nucleat RBC Rel Count Absolute Neuts (auto) Absolute Lymphs (auto) Absolute Monos (auto) Absolute Eos (auto) Absolute Basos (auto) Absolute Nucleated RBC Immature Gran % Immature Gran # ESR PT INR APTT VBG Lactic Acid 1.7 mmol/L mmol/L (0.7-2.1) Sodium Potassium Chloride Carbon Dioxide Anion Gap BUN Creatinine Estimated GFR Glucose Calcium Total Bilirubin C-Reactive Protein Microbiology Results: MICROBIOLOGY 01/08/18 17:10 Toe - Swab Gram Stain - Final Departure - Departure Disposition: Home, Routine, Self-Care Clinical Impression: Necrosis of toe, Peripheral vascular disease in diabetes mellitus Condition: Good Instructions: Diabetic Foot Ulcers (ED) Additional Instructions: 1. Follow up with general surgeon Dr. Maurer tomorrow as instructed 2. Keflex antibiotics as prescribed to completion 3. ED precautions for fever, chills, nausea Referrals: Halie Maurre MD [Primary Care Provider] - As per Instructions Prescriptions: Cephalexin [Keflex (*)] 500 mg PO QID #40 cap Hydrocodone/APAP 5/325 [[place] 5/325 (*)] 1 - 2 tab PO Q4H PRN #7 tab PRN Reason: Pain, Moderate
[2018-01-08 17:31] LABS: PLATELET COUNT 358 10^3/uL (150-400)
[2018-01-08 17:40] LABS: INR 0.95 (0.83-1.16); PROTIME(PATIENT) 12.9 SEC (12.0-15.0)
[2018-01-08 18:14] VITALS: BP 123/73
== END 2018-01-08 18:17 | disposition home or self-care (01) ==
DX: E11.52 Type 2 diabetes mellitus with diabetic peripheral angiopathy with gangrene (principal); I13.0 Hypertensive heart and chronic kidney disease with heart failure and stage 1 through stage 4 chronic kidney disease, or unspecified chronic kidney disease; N18.9 Chronic kidney disease, unspecified; I50.9 Heart failure, unspecified; Z79.4 Long term (current) use of insulin; Z79.82 Long term (current) use of aspirin

== ENCOUNTER 2018-01-11 10:29 | Inpatient (IN) | payer OTHER ==
[2018-01-11] MEDS ORDERED: BUPIVACAINE 0.5% 30 ML SDV ONE (10:40)
[2018-01-11] MEDS ORDERED: LR 1,000 ML IV ONE (10:41)
[2018-01-11] MEDS ORDERED: ceFAZolin 2 GM/DEXTROSE 100 ML IV ONE (10:45)
--- NOTE | 2018-01-11 11:00 | PDHPUP ---
History & Physical Update H&P update statement: This history and physical update is based on an assessment of the patient which was completed after admission or registration (within 24 hours), but prior to the surgery/procedure. H&P update: H&P reviewed & patient examined, no change in patient's condition since H&P completed
[2018-01-11] MEDS ORDERED: LIDOCAINE 1% 2 ML INJ ONE (11:25)
[2018-01-11 11:39] LABS: PLATELET COUNT 362 10^3/uL (150-400)
--- NOTE | 2018-01-11 11:42 | CPEKG ---
Heart Rate: 74 RR Interval: 811 P-R Interval: 164 QRSD Interval: 84 QT Interval: 360 QTC Interval: 400 P [place]: 40 QRS [place]: 15 T Wave [place]: 26 EKG Severity - NORMAL ECG - EKG Impression: SINUS RHYTHM Electronically Signed By: Anabel Roberts 11-Jan-2018 18:11:20
--- NOTE | 2018-01-11 11:54 | PDANEPAE ---
ANE History of Present Illness 52 year old male for toe amputation. ANE Past Medical History - Cardiovascular History Hx Hypertension: Yes Hx Arrhythmias: No Hx Chest Pain: No Hx Coronary Artery / Peripheral Vascular Disease: Yes Hx CHF / Valvular Disease: No Hx Palpitations: No Cardiovascular History Comment: PVD - Pulmonary History Hx Oxygen in Use at Home: No Hx Sleep Apnea: No Sleep Apnea Screening Result - Last Documented: Positive - Neurologic History Hx Cerebrovascular Accident: Yes Hx Seizures: No Hx Dementia: No Neurologic History Comment: hx strokes no residule - Endocrine History Hx Diabetes: Yes Endocrine History Comment: type 11 iddm - Renal History Hx Renal Disorders: Yes Renal History Comment: chronic kidney disease. recently acute kidney disease - Liver History Hx Hepatic Disorders: No - Neurological & Psychiatric Hx Hx Neurological and Psychiatric Disorders: Yes Neurological / Psychiatric History Comment: decreased sensation to feet - Cancer History Hx Cancer: No - Congenital Disorder History Hx Congenital Disorders: No - GI History Hx Gastrointestinal Disorders: No - Other Health History Other Health History: none - Chronic Pain History Chronic Pain: No ANE Review of Systems Review of Systems: - Exercise capacity Exercise capacity: >=4 METS METS (RN): 4 METS ANE Patient History - Allergies Allergies/Adverse Reactions: No Known Allergies Allergy (Verified 01/08/18 16:17) - Home Medications Home medications: home medication list seen and reviewed Home Medications: Aspirin EC [Aspirin EC 81 mg (*)] 81 mg PO DAILY 09/29/16 [Last Taken 1 Day Ago ~01/10/18] Gabapentin [Neurontin 300 MG (*)] 300 mg PO TID 12/27/16 [Last Taken 1 Day Ago ~ 01/10/18] Insulin Detemir [Levemir] 8 unit SQ DAILY 12/27/16 [Last Taken 1 Day Ago ~] - NPO status NPO Status: no food or drink >8 hours NPO Since - Liquids (Date): 01/10/18 NPO Since - Liquids (Time): 22:00 NPO Since - Solids (Date): 01/10/18 NPO Since - Solids (Time): 22:00 - Anes Hx Anes Hx: no prior problems - Smoking Hx Smoking Status: Never smoked Marijuana use: No - Alcohol Use Alcohol Use: None - Family Anes Hx Family Anes Hx: neg - N/A ANE Labs/Vital Signs - Labs Result Diagrams: 01/11/18 11:23 01/11/18 11:23 - Vital Signs Vital Signs: reviewed preoperatively; see RN documention for details Blood Pressure: 182/101 Heart Rate: 87 Respiratory Rate: 16 O2 Sat (%): 97 Height: 165 cm Weight: 79.832 kg ANE Physical Exam - Airway Neck exam: FROM Mallampati Score: Class 2 Mouth exam: normal dental/mouth exam Mouth image: 1 - capped - Pulmonary Pulmonary: no respiratory distress - Cardiovascular Cardiovascular: regular rate and rhythym - ASA Status ASA Status: III ANE Anesthesia Plan Anesthesia Plan: general endotracheal anesthesia, GA w LMA Total IV Anesthesia: No
[2018-01-11] MEDS ORDERED: fentaNYL 100 MCG/2 ML INJ ONE (12:09)
[2018-01-11] MEDS ORDERED: PROPOFOL 200 MG/20 ML VIAL ONE (12:09)
[2018-01-11] MEDS ORDERED: ONDANSETRON 4 MG/2 ML VIAL IVP PRN (12:57)
[2018-01-11] MEDS ORDERED: PHENYLEPHRINE HCL 100 MCG/ML SYR IVP PRN (12:57)
[2018-01-11] MEDS ORDERED: NALOXONE HCL 0.4 MG/ML INJ IVP PRN (12:57)
[2018-01-11] MEDS ORDERED: fentaNYL 100 MCG/2 ML INJ IVP PRN (12:57)
[2018-01-11] MEDS ORDERED: LIDOCAINE 2% 100 MG/5 ML SYR ONE (13:00)
[2018-01-11] MEDS ORDERED: ONDANSETRON 4 MG/2 ML VIAL ONE ×2 (13:00→13:53)
--- NOTE | 2018-01-11 13:11 | POSTOPPROG ---
Post Op Note Date of Operation: 01/11/18 Surgeon: Halie Maurer Anesthesiologist: romy Anesthesia: GET(General Endotracheal) Pre-op Diagnosis: osteomylitis R 2nd toe Post-op Diagnosis: same Indication: 52 yo with osteomylitis 2nd toe Procedure: amputation R 2nd toe Findings: gangrene Inf/Abcess present in the surg proc area at time of surgery?: Yes Depth: Deep Incisional (Fascial) EBL: Minimal Specimen(s): path and micro
[2018-01-11] MEDS ORDERED: HYDROCODONE/APAP 5/325 TAB PO PRN (13:12)
[2018-01-11] MEDS ORDERED: ACETAMINOPHEN 325 MG TAB PO PRN (13:13)
[2018-01-11] MEDS ORDERED: IBUPROFEN 600 MG TAB PO PRN (13:14)
--- NOTE | 2018-01-11 14:43 | POSTANESTH ---
Post Anesthetic Evaluation Cardiovascular Status: Normal, Stable, Similar to Pre-Op Cond Respiratory Status: Normal, Stable, Similar to Pre-op Cond. Level of Consciousness/Mental Status: Can Participate in Eval, Alert and Oriented Pain Control: Adequate, Prn Tx Ordered Nausea/Vomiting Control: Adequate, Prn Tx Ordered Complications Possibly Related to Anesthesia: None Noted
[2018-01-11] MEDS ORDERED: INSULIN LISPRO 100 UNIT/ML SC ONE (14:48)
[2018-01-11] MEDS: traMADol 50 MG TAB PO PRN (18:16)
[2018-01-11] MEDS ORDERED: D50W 25 GM/50 ML VIAL IVP PRN (18:46)
[2018-01-11] MEDS ORDERED: MAGNESIUM HYDROXIDE 30 ML UDCUP PO PRN (19:13)
[2018-01-11] MEDS ORDERED: BISACODYL 10 MG SUPP PR PRN (19:13)
--- NOTE | 2018-01-11 19:38 | GOP ---
[f rep st] OPERATIVE REPORT DATE OF OPERATION: 01/11/2018 SURGEON: Halie Maurer MD ANESTHESIA: General. ANESTHESIOLOGIST: Jose Martin Luther MD PREOPERATIVE DIAGNOSIS: Right 2nd toe osteomyelitis. POSTOPERATIVE DIAGNOSIS: Right 2nd toe osteomyelitis. PROCEDURE PERFORMED: Amputation right 2nd toe and metatarsal head. FINDINGS: necrotic toe SPECIMENS: Toe for Pathology and Microbiology. ESTIMATED BLOOD LOSS: 5 cc. INDICATIONS: Benoit Moran is a 52-year-old man with diabetes who developed necrosis of his 2nd toe. It was initially dry gangrene and did not need to be actively treated. However, he then became cellulitic with it more painful. He has responded to antibiotics. However, due to the active osteomyelitis with the wet gangrene, amputation was indicated. DESCRIPTION OF PROCEDURE: Patient was brought into the operating room, placed supine on the table. General anesthesia was administered. His foot was prepped and draped in the usual sterile fashion. I infiltrated the area with 10 cc of 0.5% Marcaine prior to making incision. I made an ellipse around the 2nd toe. I dissected down over the anterior portion of his foot. I amputated the distal phalanx and sent this to Pathology. I then took the middle phalanx and sent this for Microbiology and then took a small portion of the metatarsal head with a saw, inked this proximal, and sent this to Pathology. Irrigation was performed. The bone was softened with a rasp. The deep layer closed with 2 -0 Vicryl, skin closed with 2-0 nylon. Sterile dressing was applied. He was awakened in the operating room, extubated, transferred to PACU in stable condition. He had palpable pulses. /[id number]/MODL MTDD
[2018-01-11] MEDS ORDERED: hydrALAZINE 10 MG TAB PO PRN (19:47)
--- NOTE | 2018-01-11 20:13 | GCON ---
[f rep st] CONSULTATION DATE OF CONSULTATION: 01/11/2018 REFERRING PHYSICIAN: MD Erasto REASON FOR CONSULTATION: Diabetes/hypertension management. My history and exam were completed with an in-person community assistant. HPI: A 52-year-old Vincentian-speaking male with a history of uncontrolled diabetes, foot osteomyelitis with prior amputation. Over the past 3 days, he has had generalized right foot swelling, pain and bleeding from the bottom of his right 2nd toe. He was sent to the ED from [facility] yesterday, in which x-rays showed an osseous erosion at the distal 2nd proximal phalanx at the PIP joint. Dr. Maurer performed a right 2nd toe amputation today. Denies fevers, chills, or sweats. Pain after surgery is a 5/10, dull ache. c/ o dysuria for the past 3 days. No flank pain. Reports sugars at home in the 120s to 130s. He takes an unusual regimen of both Levemir and Lantus, Levemir 20 units in the morning, 8 q.h.s., Lantus 6 units with dinner REVIEW OF SYSTEMS: A completed 10-point review of systems negative except as noted in HPI. PAST MEDICAL HISTORY: Type 2 diabetes, A1c 9.6%, 11/22; hypertension; prior left foot osteomyelitis with serratia/enterococcus; CKD. PAST SURGICAL HISTORY: 1. Left great toe amputation, September 2016. 2. 4th left toe amputation, 11/21. 3. Left transmetatarsal metatarsal amputation, 12/21. SOCIAL HISTORY: Lives in [place] with his nephew. Not currently working. 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 Denies alcohol, tobacco, or illicits. FAMILY HISTORY: Mother with diabetes and hypertension. HOME MEDICATIONS: Tramadol 50-100 mg q.8 hours p.r.n.; Norvasc 5 mg daily; senna b.i.d.; Lantus 6 units with dinner; Levemir 20 in the morning, 8 at night ; Neurontin 300 mg t.i.d.; Keflex 500 mg q.i.d.; aspirin 81 mg daily; Tylenol as needed. ALLERGIES: None. PHYSICAL EXAM: VITAL SIGNS: Temperature 36.6, blood pressure is 160/81. Heart rate is in the 70s, respiratory rate 16, 96% on room air. GENERAL: Overweight male in no acute distress. HEENT: ARIK. EOMI. Oropharynx clear. CV: Regular rate and rhythm. No murmurs, gallops, or rubs. LUNGS: Clear bilaterally. ABDOMEN: Soft, nontender, nondistended. Positive bowel sounds. : Left suprapubic tenderness to palpation. No CVA tenderness. MUSCULOSKELETAL: 5/5 upper and lower extremity strength. Right 2nd toe amputation site dressed, clean, dry, and intact. PSYCH: Alert and oriented x3. LABS: WBC is 8.6, hemoglobin 10, hematocrit 32, platelets 362. Sodium 137, potassium 4.9, chloride 110, carbon dioxide 21, BUN 35, creatinine is 1.3 ( baseline is 1.3-1.5), glucose is 274, calcium 8.7, total bilirubin 0.3, alkaline phosphatase 304, albumin is 3. EKG personally reviewed by me: Normal sinus rhythm, ST flattening in leads III and aVF. ASSESSMENT AND PLAN: 1. Uncontrolled type 2 diabetes: A1c was 9.6 in November. Has unusual regimen with 2 long-acting insulins. Will continue Lantus 10 units b.i.d. with sliding scale and increase as needed. Needs more teaching at discharge, diet and insulin regimen. 2. Accelerated hypertension: resume Norvasc. PRN hydral 3. Osteomyelitis of right 2nd toe, status post amputation. Would continue tramadol and [place]. Avoid Advil given chronic kidney disease. 4. Dysuria. Check UA. 5. CKD: avoid nephrotoxic medications 6. Diet. Diabetic. Disposition. Thank you for this consult. We will follow along. Please call if any questions. /[id number]/MODL MTDD
[2018-01-11] MEDS: INSULIN GLARGINE 100 UNITS/ML UNIT SC SCH (21:30)
[2018-01-11] MEDS: SENNOSIDES/DOCUSATE SODIUM TAB PO SCH (22:30)
[2018-01-11] MEDS: GABAPENTIN 300 MG CAP PO SCH (22:31)
[2018-01-12 06:20] LABS: PLATELET COUNT 318 10^3/uL (150-400)
[2018-01-12] MEDS: POLYETHYLENE GLYCOL 3350 17 GM PKT PO PRN (07:57)
[2018-01-12] MEDS: GABAPENTIN 300 MG CAP PO SCH ×3 (07:57→21:16)
[2018-01-12] MEDS: INSULIN LISPRO 100 UNIT/ML SC SCH ×3 (07:58→18:10)
[2018-01-12] MEDS: SENNOSIDES/DOCUSATE SODIUM TAB PO SCH ×2 (07:58→21:15)
--- NOTE | 2018-01-12 08:05 | SOAPPROG ---
SOAP Progress Note Assessment/Plan: Assessment: POD #1 s/p right 2nd toe and metatarsal head amputation Pain currently controlled with Tramadol Hypertension Diabetes Neuro: Continue current pain medications Respiratory: N0 active issues Cardio: Appreciate hospitalists managing BP. Endo: Hospitalist controlling diabetes medications DVT prophylaxis: SCD's Dispo: Home when BP controlled, pain controlled, ambulating Having [employer] come to fit patient for shoe and check on boot Plan to be adjusted accordingly S: Little to no pain O: laying in bed CTAB Regular rate and rhythm RLE: 1+ pitting edema, dressing on with no stains SCD's on Rounded again at 1611. Patient is constipated and on bowel protocol. PT recommends stay in hospital for one more night. 01/12/18 08:05 01/12/18 08:52 01/12/18 16:10 01/12/18 16:30 Objective: Vital Signs Temp Pulse Resp BP Pulse Ox 36.8 C 79 20 169/91 H 96 01/12/18 07:59 01/12/18 07:59 01/12/18 07:59 01/12/18 07:59 01/12/18 07:59 Microbiology 01/11/18 12:56 Gram Stain - Final Toe - Bone Laboratory Results 01/12/18 04:50 01/12/18 04:50 01/11/18 01/12/18 01/13/18 05:59 05:59 05:59 Intake Total 1999 Output Total 810 400 Balance 1190 -400 ICD10 Worksheet Patient Problems: Problems Problem Status Onset Diabetic foot infection Acute Osteomyelitis of left foot Acute
[2018-01-12] MEDS: INSULIN GLARGINE 100 UNITS/ML UNIT SC SCH (10:00)
--- NOTE | 2018-01-12 11:40 | HOSPPROG ---
Hospitalist Progress Note Assessment/Plan: Patient is a 52-year-old Dominican-speaking male with a history of uncontrolled diabetes, foot osteomyelitis with prior amputation. He was seen by Dr. Maurer and had a 2nd toe amputation yesterday. The hospitalist team was asked to evaluate his glucoses. Today is my 1st encounter with the patient. Chart reviewed. *DM 2 -after meeting w the patient via japanese interpreter we reviewed his doses (there were variations in what he said) -asked pharmacy to re-evaluate his home dosing and confirm these *HTN -Norvasc low dose today -can resume diuretics once he is taking more intake *Osteomyelitis of 2nd toe -s/p amputation -pain well managed *CKD -creat is slightly elevated, but close to baseline -ok to resume home medications but to get a renal panel next week *Plan: patient was having too much pain to be dc, will check his chemistry panel tomorrow Subjective: Benoit is not having pain while resting in the bed. Objective: Vital Signs Temp Pulse Resp BP Pulse Ox 36.8 C 79 20 169/91 H 96 01/12/18 07:59 01/12/18 07:59 01/12/18 07:59 01/12/18 07:59 01/12/18 07:59 Microbiology 01/11/18 12:56 Gram Stain - Final Toe - Bone Laboratory Results 01/12/18 04:50 01/12/18 04:50 01/11/18 01/12/18 01/13/18 05:59 05:59 05:59 Intake Total 2000 Output Total 810 400 Balance 1190 -400 - Physical Exam Constitutional: no apparent distress Eyes: PERRL Ears, Nose, Mouth, Throat: hearing normal Cardiovascular: regular rate and rhythym Respiratory: no respiratory distress Gastrointestinal: normoactive bowel sounds Skin: warm, other (left foot with toes that had been amputated in the past, right foot w dressing around little toe area) Neurologic: AAOx3 Psychiatric: interacting appropriately ICD10 Worksheet Patient Problems: Problems Problem Status Onset Diabetic foot infection Acute Osteomyelitis of left foot Acute
[2018-01-12] MEDS: LACTULOSE 20 GM/30 ML UDCUP PO PRN ×2 (13:25→13:55)
[2018-01-12] MEDS: traMADol 50 MG TAB PO PRN (13:54)
[2018-01-12] MEDS ORDERED: traMADol 50 MG TAB PO PRN (14:42)
[2018-01-12] MEDS ORDERED: INSULIN GLARGINE 100 UNITS/ML UNIT SC SCH (21:00)
[2018-01-12] MEDS ORDERED: NON-FORMULARY NEW DRUG (Insulin Detemir [Levemir] 10 UNIT) SQ SCH (21:00)
[2018-01-12] MEDS: DOCUSATE SODIUM 100 MG CAP PO SCH (21:15)
--- NOTE | 2018-01-12 21:30 | PDMN ---
Medical Necessity Medical necessity: C/M review: Patient meets INPT crtieria uner MCG M-197 Hypertension, M-130 Diabetes: Acute and persistent SBP 187 - 169 /92 -82 despite oral - Norvasc, Lasix, Apresoline, hyperglycemia - glucose in high 200' s despite Lantus insulin and sliding scale insulin S/P 01/11/2018 surgery amputation right 2nd toe due to osteomyelitis right 2nd toe - findings; gangrene, constipation requiring Hospitalist consult, ongoing close monitoring , BP medication regimen adjustments, glucose monitoring, insulin regiment adjustments, bowel regiment, acute inpt PT/OT, comorbid diabetes, hypertension. MD anticipates > 2 MN LOS for ongoing med nec for eval and TX of above.
[2018-01-13] MEDS ORDERED: ATORVASTATIN CALCIUM 40 MG TAB PO SCH (09:00)
[2018-01-13] MEDS ORDERED: FUROSEMIDE 20 MG TAB PO SCH (09:00)
[2018-01-13] MEDS ORDERED: INSULIN GLARGINE 100 UNITS/ML UNIT SC SCH (09:00)
[2018-01-13] MEDS: INSULIN LISPRO 100 UNIT/ML SC SCH ×2 (09:14→12:38)
--- NOTE | 2018-01-13 09:24 | SOAPPROG ---
SOAP Progress Note Assessment/Plan: Assessment: 52 DIABETIC MALE SP RT 2CD TOE AMP/ WOUND CLEAN AND DRY/ AFEBRILE CO PAIN WITH WALKING BUT HAS USED NO PAIN MEDS Plan:POSSIBLY HOME TODAY AFTER PT EVAL 01/13/18 09:22 Objective: Vital Signs Temp Pulse Resp BP Pulse Ox 37.0 C 74 14 151/83 H 98 01/13/18 07:43 01/13/18 07:43 01/13/18 07:43 01/13/18 07:43 01/13/18 07:43 Microbiology 01/11/18 12:56 Gram Stain - Final Toe - Bone Laboratory Results 01/12/18 04:50 01/13/18 05:44 01/12/18 01/13/18 01/14/18 05:59 05:59 05:59 Intake Total 2000 800 Output Total 810 1050 350 Balance 1190 -250 -350 ICD10 Worksheet Patient Problems: Problems Problem Status Onset Diabetic foot infection Acute Osteomyelitis of left foot Acute
[2018-01-13] MEDS: SENNOSIDES/DOCUSATE SODIUM TAB PO SCH (09:56)
[2018-01-13] MEDS: DOCUSATE SODIUM 100 MG CAP PO SCH (09:56)
[2018-01-13] MEDS: GABAPENTIN 300 MG CAP PO SCH (09:56)
[2018-01-13] MEDS: POLYETHYLENE GLYCOL 3350 17 GM PKT PO PRN (10:02)
[2018-01-13 10:05] VITALS: BP 145/79
--- NOTE | 2018-01-13 10:48 | HOSPPROG ---
Hospitalist Progress Note Assessment/Plan: Patient is a 52-year-old Luxembourgish-speaking male with a history of uncontrolled diabetes, foot osteomyelitis with prior amputation. He was seen by Dr. Maurer and had a 2nd toe amputation yesterday. The hospitalist team was asked to evaluate his glucoses. Met w the patient w an pastrycook's assistant. *DM 2 -stable, he has some confusion about the sliding scale, he started this 3 weeks ago -told him to continue Levemir as done here and if unsure about short acting to call his PCP first thing Monday morning. *HTN -Norvasc -can resume his home medication tomorrow *Osteomyelitis of 2nd toe -s/p amputation -pain well managed *CKD -creat is slightly elevated, but close to baseline -ok to resume home medications but to get a renal panel next week *Plan: Benoit is doing much better today, Subjective: Benoit is feeling well, no complaints, pain is well managed. Objective: Vital Signs Temp Pulse Resp BP Pulse Ox 37.0 C 74 14 145/79 H 98 01/13/18 07:43 01/13/18 07:43 01/13/18 07:43 01/13/18 09:56 01/13/18 07:43 Microbiology 01/11/18 12:56 Gram Stain - Final Toe - Bone Laboratory Results 01/12/18 04:50 01/13/18 05:44 01/12/18 01/13/18 01/14/18 05:59 05:59 05:59 Intake Total 2000 800 Output Total 810 1050 625 Balance 1190 250 625 - Physical Exam Constitutional: no apparent distress, appears nourished, not in pain Eyes: PERRL Ears, Nose, Mouth, Throat: hearing normal Respiratory: no respiratory distress Skin: warm Musculoskeletal: generalized weakness Neurologic: AAOx3 Psychiatric: interacting appropriately ICD10 Worksheet Patient Problems: Problems Problem Status Onset Diabetic foot infection Acute Osteomyelitis of left foot Acute
--- NOTE | 2018-01-13 10:49 | ASMTLACE ---
LACE Length of stay for Answers: 1 day current admission Acuity / Level of Answers: Yes Care: Did the patient have an inpatient admission? Comorbidities - select Answers: Cerebrovascular disease all that apply (CVA, TIA, aneurysms, vasc ular dementia) Diabetes (uncontrolled or controlled) Peripheral vascular disease Other Notes: HTN; CKD # of Emergency department Answers: 1-2 visits in the last 6 months Score: 9 Date Signed: 01/13/2018 10:48 AM Electronically Signed By:Charline Cardozo LCSW
--- NOTE | 2018-01-13 10:52 | ASMTCMCOM ---
CM Note CM Note Notes: Pt with hx of diabetic foot wounds admitted for osteomyelitis. Pt has [facility] which does not cover home care. Per PT Chio, pt will be able to manage at home without HC. Plan is for DC tdoday. Pt will f/u at [facility]. Date Signed: 01/13/2018 10:51 AM Electronically Signed By:Charline Cardozo LCSW
[2018-01-15] MEDS ORDERED: ERGOCALCIFEROL 50,000 I.UNIT CAP PO SCH (08:00)
== END 2018-01-13 14:39 | disposition home or self-care (01) | DRG 256 ==
LOC: F3N 10:29 → OBSVTOIN 01-12 16:33
PROVIDERS: ADMIT Surgery; ATTEND Surgery
PROC: 0Y6R0Z0 Detachment at Right 2nd Toe, Complete, Open Approach (ICD-10-PCS; principal; 2018-01-11 12:00)
DX: E11.52 Type 2 diabetes mellitus with diabetic peripheral angiopathy with gangrene (principal); M86.172 Other acute osteomyelitis, left ankle and foot; I12.9 Hypertensive chronic kidney disease with stage 1 through stage 4 chronic kidney disease, or unspecified chronic kidney disease; N18.9 Chronic kidney disease, unspecified; R30.0 Dysuria; E11.65 Type 2 diabetes mellitus with hyperglycemia; Z89.422 Acquired absence of other left toe(s); Z89.412 Acquired absence of left great toe
CPT/HCPCS: 97116-GP; 97162-GP; 97165-GO; 97530-GP; G0378; J0690; J1815; J2001; J2370; J2405; J2704; J3010

== ENCOUNTER 2018-05-12 20:36 | Emergency (ER) | payer OTHER ==
--- NOTE | 2018-05-12 21:15 | EDPHY ---
H & P Time Seen by Provider: 05/12/18 20:52 HPI/ROS: CHIEF COMPLAINT: Pain to the left foot HISTORY OF PRESENT ILLNESS: Patient is a 52-year-old male who 1 year ago had amputation of the left foot. He had a prosthesis placed about 2 weeks ago and started developing pain to the left lateral foot. Denies any fever, drainage, erythema. ROS As detailed in HPI Smoking Status: Never smoked Physical Exam: General: Alert and oriented. Nontoxic appearing. No acute distress HEENT: Pupils PERRLA. No oral lesions. Cardiopulmonary: Regular rate and rhythm. No lower extremity edema Skin: [place] warm and dry. Examination of the left stump reveals a small pressure ulcer with no erythema or purulence. He is slightly tender but there is no deformity or open skin lesions. Muscle skeletal: Moving all 4 extremities. Equal strength in upper extremities and lower extremities. Ambulatory. Constitutional: Initial Vital Signs Temperature (C) 37.2 C 05/12/18 20:44 Heart Rate 97 05/12/18 20:44 Respiratory Rate 18 05/12/18 20:44 Blood Pressure 191/81 H 05/12/18 20:44 O2 Sat (%) 92 05/12/18 20:44 O2 Delivery Mode Room Air Allergies/Adverse Reactions: No Known Allergies Allergy (Verified 05/12/18 20:48) Home Medications: Medication Instructions Recorded Aspirin EC [Aspirin EC 81 mg (*)] 81 mg PO DAILY 09/29/16 traMADol [Ultram 50 mg (*)] 50 - 100 mg PO Q8HRS PRN #40 tab 01/06/17 Atorvastatin Calcium [Lipitor 40 40 mg PO DAILY 01/12/18 mg (*)] Furosemide [Lasix 20 MG (*)] 20 mg PO DAILY 01/12/18 Insulin Detemir [Levemir Flextouch] 8 unit SQ HS 01/12/18 Insulin Detemir [Levemir Flextouch] 20 unit SQ DAILY 01/12/18 Ketoconazole 2% [Nizoral Shampoo 1 macho TP DAILY 01/12/18 (*)] Medical Decision Making ED Course/Re-evaluation: This is likely a pressure ulcer that just needs offloading. It was most likely caused by the new prosthesis. He will follow up with Senior Producer for adjustment of the prosthesis in addition is referred to Podiatry for further management of the pressure ulcer. Differential Diagnosis: Abscess, osteomyelitis, cellulitis, pressure ulcer Departure - Departure Disposition: Home, Routine, Self-Care Clinical Impression: Pressure ulcer caused by device Condition: Good Instructions: Pressure Injury (ED) Additional Instructions: Please follow up with Senior Producer and Podiatry within the next week. Attempt to bear weight on that foot as much as possible. Return to the ER if he developed fever, redness, drainage from the wound. Senior Producer: Address: [facility] Russell Santoro[address] [address] Phone: Por favor lilo stephane de seguimiento con Senior Producer y Podiatria dentro de la proxima semana. Intente no cargar peso en taryn pie tanto leo sea posible. Regrese a la ciara de emergencia si desarolla fibre, enrojecimiento, drena la herida. Direccion de Senior Producer: [facility]. [place]. [address] [place] [id number] Telefono Referrals: Virginia Garcia [Primary Care Provider] - As per Instructions William Hodgson DPM [Doctor of Podiatric Medicine] - As per Instructions
[2018-05-12 21:30] VITALS: BP 141/99
== END 2018-05-12 21:28 | disposition home or self-care (01) ==
DX: M79.672 Pain in left foot (principal); L89.899 Pressure ulcer of other site, unspecified stage; Z89.422 Acquired absence of other left toe(s); Z89.412 Acquired absence of left great toe